=== PATIENT | male | born 1945 | race African-American/Black ===

== ENCOUNTER → 2017-04-28 | Outpatient (CLI) | payer OTHER ==
[~2017-04-28] MED LIST: ARGININE MISCELL; ASPIR 8181 MG PO; AUGMENTIN 875-1 EACH PO; CALCIUM ACETAT667 MG PO; CARDIZEM CD120 MG PO; CARVEDILOL12.5 MG PO; COREG25 MG PO; COZAAR 50 MG TA50 M1 PO; COZAAR 50 MG TA50 M2 PO; ENOXAPARIN30 MG/0.1 SUBQ; GENTAMICIN 0.1%15 G2 TOP; HEPARIN SO5000 UNIT/ SUBQ; HYDROCODON-ACE1 EAC5 PO; MIRALAX17 GM PO; NEURONTIN600 MG PO; NORCO 10-325 T1 EACH PO; NORVASC10 MG PO; NOVOLOG100 UNIT/1 SUBQ; PERCOCET 7.5-31 EACH PO; PLAVIX 75 MG TA75 M1 PO; PRAVACHOL20 MG PO; TYLENOL325 MG PO; UNASYN 3 GM VIAL3 G1 IV; VANCO 750750 MG/150 IV; VANCOMYCIN125 MG/2.1 PO; VIRT-CAPS SOFTGE1 MG PO; VITAMINC500 PO; ZINC50 M1 PO
== END ==
LOC: RAD 12:37
DX: I51.7 Cardiomegaly (principal)

== ENCOUNTER → 2017-04-28 | Outpatient (CLI) | payer OTHER | LOC: HYPER 06:51 | DX: T87.81 Dehiscence of amputation stump (principal); E11.621 Type 2 diabetes mellitus with foot ulcer; I70.262 Atherosclerosis of native arteries of extremities with gangrene, left leg; L97.521 Non-pressure chronic ulcer of other part of left foot limited to breakdown of skin; E11.69 Type 2 diabetes mellitus with other specified complication; M86.672 Other chronic osteomyelitis, left ankle and foot; E11.51 Type 2 diabetes mellitus with diabetic peripheral angiopathy without gangrene; I48.92 Unspecified atrial flutter; E78.5 Hyperlipidemia, unspecified; E11.22 Type 2 diabetes mellitus with diabetic chronic kidney disease; I12.0 Hypertensive chronic kidney disease with stage 5 chronic kidney disease or end stage renal disease; N18.6 End stage renal disease; Z99.2 Dependence on renal dialysis; I25.2 Old myocardial infarction; E11.42 Type 2 diabetes mellitus with diabetic polyneuropathy; Z87.891 Personal history of nicotine dependence; Y83.5 Amputation of limb(s) as the cause of abnormal reaction of the patient, or of later complication, without mention of misadventure at the time of the procedure ==

== ENCOUNTER → 2017-04-29 | Outpatient (CLI) | payer OTHER | LOC: HYPER 07:04 | DX: T87.81 Dehiscence of amputation stump (principal); E11.621 Type 2 diabetes mellitus with foot ulcer; L97.521 Non-pressure chronic ulcer of other part of left foot limited to breakdown of skin; E11.69 Type 2 diabetes mellitus with other specified complication; M86.672 Other chronic osteomyelitis, left ankle and foot; E11.42 Type 2 diabetes mellitus with diabetic polyneuropathy; E11.52 Type 2 diabetes mellitus with diabetic peripheral angiopathy with gangrene; I96 Gangrene, not elsewhere classified; E11.22 Type 2 diabetes mellitus with diabetic chronic kidney disease; I12.0 Hypertensive chronic kidney disease with stage 5 chronic kidney disease or end stage renal disease; N18.6 End stage renal disease; I25.10 Atherosclerotic heart disease of native coronary artery without angina pectoris; I48.92 Unspecified atrial flutter; I25.2 Old myocardial infarction; K21.9 Gastro-esophageal reflux disease without esophagitis; F32.9 Major depressive disorder, single episode, unspecified; Z99.2 Dependence on renal dialysis; Z89.022 Acquired absence of left finger(s); Z87.891 Personal history of nicotine dependence; Y83.5 Amputation of limb(s) as the cause of abnormal reaction of the patient, or of later complication, without mention of misadventure at the time of the procedure ==

== ENCOUNTER → 2017-04-30 | Outpatient (CLI) | payer OTHER | LOC: HYPER 06:47 | DX: T86.828 Other complications of skin graft (allograft) (autograft) (principal); T87.89 Other complications of amputation stump; E11.69 Type 2 diabetes mellitus with other specified complication; M86.672 Other chronic osteomyelitis, left ankle and foot; E11.22 Type 2 diabetes mellitus with diabetic chronic kidney disease; I12.0 Hypertensive chronic kidney disease with stage 5 chronic kidney disease or end stage renal disease; N18.6 End stage renal disease; Z99.2 Dependence on renal dialysis; E11.52 Type 2 diabetes mellitus with diabetic peripheral angiopathy with gangrene; I48.92 Unspecified atrial flutter; F32.9 Major depressive disorder, single episode, unspecified; I25.2 Old myocardial infarction; E11.42 Type 2 diabetes mellitus with diabetic polyneuropathy; Z87.891 Personal history of nicotine dependence; Y83.5 Amputation of limb(s) as the cause of abnormal reaction of the patient, or of later complication, without mention of misadventure at the time of the procedure ==

== ENCOUNTER → 2017-05-01 | Outpatient (CLI) | payer OTHER | LOC: HYPER 07:57 | DX: T87.89 Other complications of amputation stump (principal); T86.828 Other complications of skin graft (allograft) (autograft); E11.69 Type 2 diabetes mellitus with other specified complication; M86.672 Other chronic osteomyelitis, left ankle and foot; E11.52 Type 2 diabetes mellitus with diabetic peripheral angiopathy with gangrene; E11.22 Type 2 diabetes mellitus with diabetic chronic kidney disease; I12.0 Hypertensive chronic kidney disease with stage 5 chronic kidney disease or end stage renal disease; N18.6 End stage renal disease; Z99.2 Dependence on renal dialysis; I48.92 Unspecified atrial flutter; I25.2 Old myocardial infarction; Z87.891 Personal history of nicotine dependence; Y83.5 Amputation of limb(s) as the cause of abnormal reaction of the patient, or of later complication, without mention of misadventure at the time of the procedure ==

== ENCOUNTER → 2017-05-04 | Outpatient (CLI) | payer OTHER | LOC: HYPER 06:49 | DX: T87.81 Dehiscence of amputation stump (principal); E11.69 Type 2 diabetes mellitus with other specified complication; M86.672 Other chronic osteomyelitis, left ankle and foot; I48.92 Unspecified atrial flutter; E11.22 Type 2 diabetes mellitus with diabetic chronic kidney disease; I12.0 Hypertensive chronic kidney disease with stage 5 chronic kidney disease or end stage renal disease; N18.6 End stage renal disease; I25.10 Atherosclerotic heart disease of native coronary artery without angina pectoris; K21.9 Gastro-esophageal reflux disease without esophagitis; I96 Gangrene, not elsewhere classified; E11.52 Type 2 diabetes mellitus with diabetic peripheral angiopathy with gangrene; I25.2 Old myocardial infarction; E11.42 Type 2 diabetes mellitus with diabetic polyneuropathy; F32.9 Major depressive disorder, single episode, unspecified; Z99.2 Dependence on renal dialysis; Z87.891 Personal history of nicotine dependence; Z89.022 Acquired absence of left finger(s); Y83.5 Amputation of limb(s) as the cause of abnormal reaction of the patient, or of later complication, without mention of misadventure at the time of the procedure ==

== ENCOUNTER → 2017-05-05 | Outpatient (CLI) | payer OTHER | LOC: HYPER 06:45 | DX: T87.81 Dehiscence of amputation stump (principal); E11.42 Type 2 diabetes mellitus with diabetic polyneuropathy; E11.69 Type 2 diabetes mellitus with other specified complication; M86.672 Other chronic osteomyelitis, left ankle and foot; E11.22 Type 2 diabetes mellitus with diabetic chronic kidney disease; I12.0 Hypertensive chronic kidney disease with stage 5 chronic kidney disease or end stage renal disease; N18.6 End stage renal disease; E11.52 Type 2 diabetes mellitus with diabetic peripheral angiopathy with gangrene; I96 Gangrene, not elsewhere classified; I25.10 Atherosclerotic heart disease of native coronary artery without angina pectoris; I48.92 Unspecified atrial flutter; I25.2 Old myocardial infarction; K21.9 Gastro-esophageal reflux disease without esophagitis; F32.9 Major depressive disorder, single episode, unspecified; Z99.2 Dependence on renal dialysis; Z87.891 Personal history of nicotine dependence; Z89.022 Acquired absence of left finger(s); Y83.5 Amputation of limb(s) as the cause of abnormal reaction of the patient, or of later complication, without mention of misadventure at the time of the procedure ==

== ENCOUNTER → 2017-05-06 | Outpatient (CLI) | payer OTHER | LOC: HYPER 07:00 | DX: T87.89 Other complications of amputation stump (principal); E11.69 Type 2 diabetes mellitus with other specified complication; M86.672 Other chronic osteomyelitis, left ankle and foot; E11.51 Type 2 diabetes mellitus with diabetic peripheral angiopathy without gangrene; I48.91 Unspecified atrial fibrillation; E11.22 Type 2 diabetes mellitus with diabetic chronic kidney disease; I12.0 Hypertensive chronic kidney disease with stage 5 chronic kidney disease or end stage renal disease; N18.6 End stage renal disease; Z99.2 Dependence on renal dialysis; I25.10 Atherosclerotic heart disease of native coronary artery without angina pectoris; K21.9 Gastro-esophageal reflux disease without esophagitis; E11.52 Type 2 diabetes mellitus with diabetic peripheral angiopathy with gangrene; I25.2 Old myocardial infarction; Z87.891 Personal history of nicotine dependence; Y83.5 Amputation of limb(s) as the cause of abnormal reaction of the patient, or of later complication, without mention of misadventure at the time of the procedure ==

== ENCOUNTER → 2017-05-08 | Outpatient (CLI) | payer OTHER | LOC: HYPER 08:13 | DX: T87.81 Dehiscence of amputation stump (principal); E11.69 Type 2 diabetes mellitus with other specified complication; M86.672 Other chronic osteomyelitis, left ankle and foot; E11.52 Type 2 diabetes mellitus with diabetic peripheral angiopathy with gangrene; I96 Gangrene, not elsewhere classified; E11.42 Type 2 diabetes mellitus with diabetic polyneuropathy; E11.22 Type 2 diabetes mellitus with diabetic chronic kidney disease; I12.0 Hypertensive chronic kidney disease with stage 5 chronic kidney disease or end stage renal disease; N18.6 End stage renal disease; I25.10 Atherosclerotic heart disease of native coronary artery without angina pectoris; I25.2 Old myocardial infarction; I48.92 Unspecified atrial flutter; K21.9 Gastro-esophageal reflux disease without esophagitis; F32.9 Major depressive disorder, single episode, unspecified; Z99.2 Dependence on renal dialysis; Z87.891 Personal history of nicotine dependence; Z89.422 Acquired absence of other left toe(s); Z89.022 Acquired absence of left finger(s); Y83.5 Amputation of limb(s) as the cause of abnormal reaction of the patient, or of later complication, without mention of misadventure at the time of the procedure ==

== ENCOUNTER → 2017-05-12 | Outpatient (CLI) | payer OTHER | LOC: HYPER 07:00 | DX: T87.81 Dehiscence of amputation stump (principal); E11.69 Type 2 diabetes mellitus with other specified complication; M86.672 Other chronic osteomyelitis, left ankle and foot; E11.42 Type 2 diabetes mellitus with diabetic polyneuropathy; E11.22 Type 2 diabetes mellitus with diabetic chronic kidney disease; I12.0 Hypertensive chronic kidney disease with stage 5 chronic kidney disease or end stage renal disease; N18.6 End stage renal disease; E11.52 Type 2 diabetes mellitus with diabetic peripheral angiopathy with gangrene; I96 Gangrene, not elsewhere classified; K21.9 Gastro-esophageal reflux disease without esophagitis; I25.10 Atherosclerotic heart disease of native coronary artery without angina pectoris; I48.92 Unspecified atrial flutter; I25.2 Old myocardial infarction; F32.9 Major depressive disorder, single episode, unspecified; Z87.891 Personal history of nicotine dependence; Z89.022 Acquired absence of left finger(s); Z99.2 Dependence on renal dialysis; Y83.5 Amputation of limb(s) as the cause of abnormal reaction of the patient, or of later complication, without mention of misadventure at the time of the procedure ==

== ENCOUNTER → 2017-05-13 | Outpatient (CLI) | payer OTHER | LOC: HYPER 05-06 06:45 | DX: T87.81 Dehiscence of amputation stump (principal); E11.69 Type 2 diabetes mellitus with other specified complication; M86.672 Other chronic osteomyelitis, left ankle and foot; I48.92 Unspecified atrial flutter; E11.22 Type 2 diabetes mellitus with diabetic chronic kidney disease; I12.0 Hypertensive chronic kidney disease with stage 5 chronic kidney disease or end stage renal disease; N18.6 End stage renal disease; E11.52 Type 2 diabetes mellitus with diabetic peripheral angiopathy with gangrene; I96 Gangrene, not elsewhere classified; K21.9 Gastro-esophageal reflux disease without esophagitis; I25.2 Old myocardial infarction; E11.42 Type 2 diabetes mellitus with diabetic polyneuropathy; F32.9 Major depressive disorder, single episode, unspecified; Z87.891 Personal history of nicotine dependence; Z99.2 Dependence on renal dialysis; Z89.022 Acquired absence of left finger(s); Y83.5 Amputation of limb(s) as the cause of abnormal reaction of the patient, or of later complication, without mention of misadventure at the time of the procedure ==

== ENCOUNTER → 2017-05-14 | Outpatient (CLI) | payer OTHER | LOC: HYPER 05-07 08:25 | DX: T87.81 Dehiscence of amputation stump (principal); E11.69 Type 2 diabetes mellitus with other specified complication; M86.672 Other chronic osteomyelitis, left ankle and foot; E11.52 Type 2 diabetes mellitus with diabetic peripheral angiopathy with gangrene; I96 Gangrene, not elsewhere classified; E11.22 Type 2 diabetes mellitus with diabetic chronic kidney disease; I12.0 Hypertensive chronic kidney disease with stage 5 chronic kidney disease or end stage renal disease; N18.6 End stage renal disease; I48.92 Unspecified atrial flutter; I25.10 Atherosclerotic heart disease of native coronary artery without angina pectoris; K21.9 Gastro-esophageal reflux disease without esophagitis; I25.2 Old myocardial infarction; E11.42 Type 2 diabetes mellitus with diabetic polyneuropathy; F32.9 Major depressive disorder, single episode, unspecified; Z87.891 Personal history of nicotine dependence; Z99.2 Dependence on renal dialysis; Z89.022 Acquired absence of left finger(s); Y83.5 Amputation of limb(s) as the cause of abnormal reaction of the patient, or of later complication, without mention of misadventure at the time of the procedure ==

== ENCOUNTER → 2017-05-15 | Outpatient (CLI) | payer OTHER | LOC: HYPER 05-11 06:52 | DX: T86.828 Other complications of skin graft (allograft) (autograft) (principal); T87.89 Other complications of amputation stump; E11.69 Type 2 diabetes mellitus with other specified complication; M86.672 Other chronic osteomyelitis, left ankle and foot; I48.92 Unspecified atrial flutter; E11.22 Type 2 diabetes mellitus with diabetic chronic kidney disease; I12.0 Hypertensive chronic kidney disease with stage 5 chronic kidney disease or end stage renal disease; N18.6 End stage renal disease; Z99.2 Dependence on renal dialysis; I25.10 Atherosclerotic heart disease of native coronary artery without angina pectoris; F32.9 Major depressive disorder, single episode, unspecified; K21.9 Gastro-esophageal reflux disease without esophagitis; E11.52 Type 2 diabetes mellitus with diabetic peripheral angiopathy with gangrene; I25.2 Old myocardial infarction; E11.42 Type 2 diabetes mellitus with diabetic polyneuropathy; Z87.891 Personal history of nicotine dependence; Y83.2 Surgical operation with anastomosis, bypass or graft as the cause of abnormal reaction of the patient, or of later complication, without mention of misadventure at the time of the procedure ==

== ENCOUNTER → 2017-05-18 | Outpatient (CLI) | payer OTHER | LOC: HYPER 07:08 | DX: T86.828 Other complications of skin graft (allograft) (autograft) (principal); E11.69 Type 2 diabetes mellitus with other specified complication; M86.672 Other chronic osteomyelitis, left ankle and foot; E11.51 Type 2 diabetes mellitus with diabetic peripheral angiopathy without gangrene; I48.92 Unspecified atrial flutter; E11.22 Type 2 diabetes mellitus with diabetic chronic kidney disease; I12.0 Hypertensive chronic kidney disease with stage 5 chronic kidney disease or end stage renal disease; N18.6 End stage renal disease; Z99.2 Dependence on renal dialysis; I25.10 Atherosclerotic heart disease of native coronary artery without angina pectoris; K21.9 Gastro-esophageal reflux disease without esophagitis; I25.2 Old myocardial infarction; E11.42 Type 2 diabetes mellitus with diabetic polyneuropathy; Z87.891 Personal history of nicotine dependence; Y83.2 Surgical operation with anastomosis, bypass or graft as the cause of abnormal reaction of the patient, or of later complication, without mention of misadventure at the time of the procedure ==

== ENCOUNTER → 2017-05-19 | Outpatient (CLI) | payer OTHER | LOC: HYPER 07:07 | DX: T87.81 Dehiscence of amputation stump (principal); E11.69 Type 2 diabetes mellitus with other specified complication; M86.672 Other chronic osteomyelitis, left ankle and foot; E11.42 Type 2 diabetes mellitus with diabetic polyneuropathy; E11.22 Type 2 diabetes mellitus with diabetic chronic kidney disease; I12.0 Hypertensive chronic kidney disease with stage 5 chronic kidney disease or end stage renal disease; N18.6 End stage renal disease; E11.52 Type 2 diabetes mellitus with diabetic peripheral angiopathy with gangrene; I96 Gangrene, not elsewhere classified; I48.92 Unspecified atrial flutter; I25.2 Old myocardial infarction; I25.10 Atherosclerotic heart disease of native coronary artery without angina pectoris; K21.9 Gastro-esophageal reflux disease without esophagitis; F32.9 Major depressive disorder, single episode, unspecified; Z99.2 Dependence on renal dialysis; Z87.891 Personal history of nicotine dependence; Z89.022 Acquired absence of left finger(s); Z89.422 Acquired absence of other left toe(s); Y83.5 Amputation of limb(s) as the cause of abnormal reaction of the patient, or of later complication, without mention of misadventure at the time of the procedure ==

== ENCOUNTER → 2017-05-20 | Outpatient (CLI) | payer OTHER | LOC: HYPER 06:55 | DX: T86.828 Other complications of skin graft (allograft) (autograft) (principal); T87.89 Other complications of amputation stump; M86.672 Other chronic osteomyelitis, left ankle and foot; I73.9 Peripheral vascular disease, unspecified; I10 Essential (primary) hypertension; I48.92 Unspecified atrial flutter; E11.22 Type 2 diabetes mellitus with diabetic chronic kidney disease; I12.0 Hypertensive chronic kidney disease with stage 5 chronic kidney disease or end stage renal disease; N18.6 End stage renal disease; Z99.2 Dependence on renal dialysis; E11.52 Type 2 diabetes mellitus with diabetic peripheral angiopathy with gangrene; I25.2 Old myocardial infarction; K21.9 Gastro-esophageal reflux disease without esophagitis; Z87.891 Personal history of nicotine dependence; Z89.432 Acquired absence of left foot; Y83.2 Surgical operation with anastomosis, bypass or graft as the cause of abnormal reaction of the patient, or of later complication, without mention of misadventure at the time of the procedure ==

== ENCOUNTER → 2017-05-21 | Outpatient (CLI) | payer OTHER | LOC: HYPER 06:46 | DX: T87.81 Dehiscence of amputation stump (principal); E11.40 Type 2 diabetes mellitus with diabetic neuropathy, unspecified; E11.621 Type 2 diabetes mellitus with foot ulcer; L97.521 Non-pressure chronic ulcer of other part of left foot limited to breakdown of skin; E11.52 Type 2 diabetes mellitus with diabetic peripheral angiopathy with gangrene; I96 Gangrene, not elsewhere classified; E11.69 Type 2 diabetes mellitus with other specified complication; M86.672 Other chronic osteomyelitis, left ankle and foot; I12.0 Hypertensive chronic kidney disease with stage 5 chronic kidney disease or end stage renal disease; I48.92 Unspecified atrial flutter; E11.22 Type 2 diabetes mellitus with diabetic chronic kidney disease; N18.6 End stage renal disease; I25.2 Old myocardial infarction; E78.4 Other hyperlipidemia; I25.10 Atherosclerotic heart disease of native coronary artery without angina pectoris; K21.9 Gastro-esophageal reflux disease without esophagitis; G61.82 Multifocal motor neuropathy; F17.210 Nicotine dependence, cigarettes, uncomplicated; F32.9 Major depressive disorder, single episode, unspecified; Z99.2 Dependence on renal dialysis; Z89.432 Acquired absence of left foot; Y83.5 Amputation of limb(s) as the cause of abnormal reaction of the patient, or of later complication, without mention of misadventure at the time of the procedure ==

== ENCOUNTER → 2017-05-21 | Outpatient (CLI) | payer OTHER | LOC: HYPER 06:48 | DX: T81.31XD Disruption of external operation (surgical) wound, not elsewhere classified, subsequent encounter (principal); E11.69 Type 2 diabetes mellitus with other specified complication; M86.672 Other chronic osteomyelitis, left ankle and foot; E11.51 Type 2 diabetes mellitus with diabetic peripheral angiopathy without gangrene; I48.92 Unspecified atrial flutter; M62.81 Muscle weakness (generalized); R26.81 Unsteadiness on feet; E11.22 Type 2 diabetes mellitus with diabetic chronic kidney disease; I12.0 Hypertensive chronic kidney disease with stage 5 chronic kidney disease or end stage renal disease; N18.6 End stage renal disease; Z99.2 Dependence on renal dialysis; I25.10 Atherosclerotic heart disease of native coronary artery without angina pectoris; F32.9 Major depressive disorder, single episode, unspecified; K21.9 Gastro-esophageal reflux disease without esophagitis; E11.52 Type 2 diabetes mellitus with diabetic peripheral angiopathy with gangrene; I25.2 Old myocardial infarction; E11.42 Type 2 diabetes mellitus with diabetic polyneuropathy; Z89.432 Acquired absence of left foot; Z87.891 Personal history of nicotine dependence; Y83.8 Other surgical procedures as the cause of abnormal reaction of the patient, or of later complication, without mention of misadventure at the time of the procedure ==

== ENCOUNTER → 2017-05-22 | Outpatient (CLI) | payer OTHER | LOC: HYPER 08:00 | DX: T86.828 Other complications of skin graft (allograft) (autograft) (principal); E11.69 Type 2 diabetes mellitus with other specified complication; M86.672 Other chronic osteomyelitis, left ankle and foot; M62.81 Muscle weakness (generalized); F17.210 Nicotine dependence, cigarettes, uncomplicated; R26.81 Unsteadiness on feet; E11.22 Type 2 diabetes mellitus with diabetic chronic kidney disease; I12.0 Hypertensive chronic kidney disease with stage 5 chronic kidney disease or end stage renal disease; N18.6 End stage renal disease; Z99.2 Dependence on renal dialysis; I25.10 Atherosclerotic heart disease of native coronary artery without angina pectoris; F32.9 Major depressive disorder, single episode, unspecified; K21.9 Gastro-esophageal reflux disease without esophagitis; E11.52 Type 2 diabetes mellitus with diabetic peripheral angiopathy with gangrene; I25.2 Old myocardial infarction; E11.42 Type 2 diabetes mellitus with diabetic polyneuropathy; Z87.891 Personal history of nicotine dependence; Y83.2 Surgical operation with anastomosis, bypass or graft as the cause of abnormal reaction of the patient, or of later complication, without mention of misadventure at the time of the procedure ==

== ENCOUNTER → 2017-05-25 | Outpatient (CLI) | payer OTHER | LOC: HYPER 06:44 | DX: T86.828 Other complications of skin graft (allograft) (autograft) (principal); E11.69 Type 2 diabetes mellitus with other specified complication; M86.672 Other chronic osteomyelitis, left ankle and foot; E11.52 Type 2 diabetes mellitus with diabetic peripheral angiopathy with gangrene; I48.92 Unspecified atrial flutter; M62.81 Muscle weakness (generalized); R26.81 Unsteadiness on feet; E11.22 Type 2 diabetes mellitus with diabetic chronic kidney disease; I12.0 Hypertensive chronic kidney disease with stage 5 chronic kidney disease or end stage renal disease; N18.6 End stage renal disease; Z99.2 Dependence on renal dialysis; I25.2 Old myocardial infarction; E11.42 Type 2 diabetes mellitus with diabetic polyneuropathy; Z87.891 Personal history of nicotine dependence; Y83.2 Surgical operation with anastomosis, bypass or graft as the cause of abnormal reaction of the patient, or of later complication, without mention of misadventure at the time of the procedure ==

== ENCOUNTER → 2017-05-26 | Outpatient (CLI) | payer OTHER | LOC: HYPER 06:46 | DX: T86.821 Skin graft (allograft) (autograft) failure (principal); E11.69 Type 2 diabetes mellitus with other specified complication; M86.672 Other chronic osteomyelitis, left ankle and foot; I10 Essential (primary) hypertension; I48.92 Unspecified atrial flutter; M62.81 Muscle weakness (generalized); F17.210 Nicotine dependence, cigarettes, uncomplicated; R26.81 Unsteadiness on feet; I70.249 Atherosclerosis of native arteries of left leg with ulceration of unspecified site; E11.22 Type 2 diabetes mellitus with diabetic chronic kidney disease; I12.0 Hypertensive chronic kidney disease with stage 5 chronic kidney disease or end stage renal disease; N18.6 End stage renal disease; Z99.2 Dependence on renal dialysis; I25.10 Atherosclerotic heart disease of native coronary artery without angina pectoris; K21.9 Gastro-esophageal reflux disease without esophagitis; E11.52 Type 2 diabetes mellitus with diabetic peripheral angiopathy with gangrene; E11.42 Type 2 diabetes mellitus with diabetic polyneuropathy; Z87.891 Personal history of nicotine dependence; Z89.432 Acquired absence of left foot; Y83.2 Surgical operation with anastomosis, bypass or graft as the cause of abnormal reaction of the patient, or of later complication, without mention of misadventure at the time of the procedure ==

== ENCOUNTER → 2017-05-28 | Outpatient (CLI) | payer OTHER | LOC: HYPER 06:54 | DX: T81.31XD Disruption of external operation (surgical) wound, not elsewhere classified, subsequent encounter (principal); E11.22 Type 2 diabetes mellitus with diabetic chronic kidney disease; I12.0 Hypertensive chronic kidney disease with stage 5 chronic kidney disease or end stage renal disease; N18.6 End stage renal disease; E11.69 Type 2 diabetes mellitus with other specified complication; M86.672 Other chronic osteomyelitis, left ankle and foot; E11.52 Type 2 diabetes mellitus with diabetic peripheral angiopathy with gangrene; I96 Gangrene, not elsewhere classified; E11.42 Type 2 diabetes mellitus with diabetic polyneuropathy; I48.91 Unspecified atrial fibrillation; I25.10 Atherosclerotic heart disease of native coronary artery without angina pectoris; K21.9 Gastro-esophageal reflux disease without esophagitis; I25.2 Old myocardial infarction; I48.92 Unspecified atrial flutter; F32.9 Major depressive disorder, single episode, unspecified; F17.210 Nicotine dependence, cigarettes, uncomplicated; Z89.432 Acquired absence of left foot; Z99.2 Dependence on renal dialysis; Z89.422 Acquired absence of other left toe(s); Z89.022 Acquired absence of left finger(s); Y83.8 Other surgical procedures as the cause of abnormal reaction of the patient, or of later complication, without mention of misadventure at the time of the procedure ==

== ENCOUNTER → 2017-05-28 | Outpatient (CLI) | payer OTHER | LOC: HYPER 05-27 14:24 | DX: T87.89 Other complications of amputation stump (principal); T86.828 Other complications of skin graft (allograft) (autograft); E11.69 Type 2 diabetes mellitus with other specified complication; M86.672 Other chronic osteomyelitis, left ankle and foot; E11.51 Type 2 diabetes mellitus with diabetic peripheral angiopathy without gangrene; I48.92 Unspecified atrial flutter; E78.4 Other hyperlipidemia; M62.81 Muscle weakness (generalized); F17.210 Nicotine dependence, cigarettes, uncomplicated; R26.81 Unsteadiness on feet; E11.22 Type 2 diabetes mellitus with diabetic chronic kidney disease; I12.0 Hypertensive chronic kidney disease with stage 5 chronic kidney disease or end stage renal disease; N18.6 End stage renal disease; Z99.2 Dependence on renal dialysis; I25.10 Atherosclerotic heart disease of native coronary artery without angina pectoris; F32.9 Major depressive disorder, single episode, unspecified; K21.9 Gastro-esophageal reflux disease without esophagitis; Z87.891 Personal history of nicotine dependence; Y83.5 Amputation of limb(s) as the cause of abnormal reaction of the patient, or of later complication, without mention of misadventure at the time of the procedure ==

== ENCOUNTER → 2017-06-04 | Outpatient (CLI) | payer OTHER | LOC: HYPER 07:01 | DX: T86.828 Other complications of skin graft (allograft) (autograft) (principal); E11.622 Type 2 diabetes mellitus with other skin ulcer; I70.248 Atherosclerosis of native arteries of left leg with ulceration of other part of lower leg; L97.821 Non-pressure chronic ulcer of other part of left lower leg limited to breakdown of skin; E11.69 Type 2 diabetes mellitus with other specified complication; M86.672 Other chronic osteomyelitis, left ankle and foot; I48.92 Unspecified atrial flutter; E11.22 Type 2 diabetes mellitus with diabetic chronic kidney disease; I13.11 Hypertensive heart and chronic kidney disease without heart failure, with stage 5 chronic kidney disease, or end stage renal disease; N18.6 End stage renal disease; Z99.2 Dependence on renal dialysis; M62.81 Muscle weakness (generalized); F17.210 Nicotine dependence, cigarettes, uncomplicated; I25.10 Atherosclerotic heart disease of native coronary artery without angina pectoris; F32.9 Major depressive disorder, single episode, unspecified; I25.2 Old myocardial infarction; E11.42 Type 2 diabetes mellitus with diabetic polyneuropathy; E11.52 Type 2 diabetes mellitus with diabetic peripheral angiopathy with gangrene; Z87.891 Personal history of nicotine dependence; Z89.432 Acquired absence of left foot; Y83.2 Surgical operation with anastomosis, bypass or graft as the cause of abnormal reaction of the patient, or of later complication, without mention of misadventure at the time of the procedure ==

== ENCOUNTER → 2017-06-08 | Outpatient (CLI) | payer OTHER | LOC: HYPER 06:57 | DX: T86.828 Other complications of skin graft (allograft) (autograft) (principal); E11.69 Type 2 diabetes mellitus with other specified complication; M86.672 Other chronic osteomyelitis, left ankle and foot; I48.92 Unspecified atrial flutter; M62.81 Muscle weakness (generalized); F17.210 Nicotine dependence, cigarettes, uncomplicated; R26.81 Unsteadiness on feet; I25.10 Atherosclerotic heart disease of native coronary artery without angina pectoris; E11.22 Type 2 diabetes mellitus with diabetic chronic kidney disease; I12.0 Hypertensive chronic kidney disease with stage 5 chronic kidney disease or end stage renal disease; N18.6 End stage renal disease; Z99.2 Dependence on renal dialysis; E11.52 Type 2 diabetes mellitus with diabetic peripheral angiopathy with gangrene; E11.42 Type 2 diabetes mellitus with diabetic polyneuropathy; F32.9 Major depressive disorder, single episode, unspecified; Z87.891 Personal history of nicotine dependence; Z89.422 Acquired absence of other left toe(s); Y83.2 Surgical operation with anastomosis, bypass or graft as the cause of abnormal reaction of the patient, or of later complication, without mention of misadventure at the time of the procedure ==

== ENCOUNTER → 2017-06-09 | Outpatient (CLI) | payer OTHER | LOC: HYPER 07:00 | DX: T81.31XD Disruption of external operation (surgical) wound, not elsewhere classified, subsequent encounter (principal); E11.52 Type 2 diabetes mellitus with diabetic peripheral angiopathy with gangrene; I96 Gangrene, not elsewhere classified; E11.69 Type 2 diabetes mellitus with other specified complication; M86.672 Other chronic osteomyelitis, left ankle and foot; E11.22 Type 2 diabetes mellitus with diabetic chronic kidney disease; I12.0 Hypertensive chronic kidney disease with stage 5 chronic kidney disease or end stage renal disease; N18.6 End stage renal disease; I48.92 Unspecified atrial flutter; I25.2 Old myocardial infarction; I25.10 Atherosclerotic heart disease of native coronary artery without angina pectoris; M62.81 Muscle weakness (generalized); K21.9 Gastro-esophageal reflux disease without esophagitis; F17.210 Nicotine dependence, cigarettes, uncomplicated; F32.9 Major depressive disorder, single episode, unspecified; Z89.432 Acquired absence of left foot; Z99.2 Dependence on renal dialysis; Z89.422 Acquired absence of other left toe(s); Y83.8 Other surgical procedures as the cause of abnormal reaction of the patient, or of later complication, without mention of misadventure at the time of the procedure ==

== ENCOUNTER → 2017-06-10 | Outpatient (CLI) | payer OTHER | LOC: HYPER 07:02 | DX: T81.31XD Disruption of external operation (surgical) wound, not elsewhere classified, subsequent encounter (principal); E11.69 Type 2 diabetes mellitus with other specified complication; M86.672 Other chronic osteomyelitis, left ankle and foot; E11.22 Type 2 diabetes mellitus with diabetic chronic kidney disease; I12.9 Hypertensive chronic kidney disease with stage 1 through stage 4 chronic kidney disease, or unspecified chronic kidney disease; N18.6 End stage renal disease; E11.52 Type 2 diabetes mellitus with diabetic peripheral angiopathy with gangrene; I96 Gangrene, not elsewhere classified; E11.42 Type 2 diabetes mellitus with diabetic polyneuropathy; I10 Essential (primary) hypertension; I48.92 Unspecified atrial flutter; I25.10 Atherosclerotic heart disease of native coronary artery without angina pectoris; I25.2 Old myocardial infarction; I48.91 Unspecified atrial fibrillation; K21.9 Gastro-esophageal reflux disease without esophagitis; F17.210 Nicotine dependence, cigarettes, uncomplicated; F32.9 Major depressive disorder, single episode, unspecified; Z99.2 Dependence on renal dialysis; Z89.432 Acquired absence of left foot; Z89.422 Acquired absence of other left toe(s); Z89.022 Acquired absence of left finger(s); Y83.8 Other surgical procedures as the cause of abnormal reaction of the patient, or of later complication, without mention of misadventure at the time of the procedure ==

== ENCOUNTER → 2017-06-11 | Outpatient (CLI) | payer OTHER | LOC: HYPER 07:17 | DX: T86.828 Other complications of skin graft (allograft) (autograft) (principal); E11.69 Type 2 diabetes mellitus with other specified complication; M86.672 Other chronic osteomyelitis, left ankle and foot; I48.92 Unspecified atrial flutter; M62.81 Muscle weakness (generalized); F17.210 Nicotine dependence, cigarettes, uncomplicated; R26.81 Unsteadiness on feet; I25.10 Atherosclerotic heart disease of native coronary artery without angina pectoris; E11.22 Type 2 diabetes mellitus with diabetic chronic kidney disease; I12.0 Hypertensive chronic kidney disease with stage 5 chronic kidney disease or end stage renal disease; N18.6 End stage renal disease; Z99.2 Dependence on renal dialysis; E11.52 Type 2 diabetes mellitus with diabetic peripheral angiopathy with gangrene; I25.2 Old myocardial infarction; Z87.891 Personal history of nicotine dependence; Z89.432 Acquired absence of left foot; Y83.2 Surgical operation with anastomosis, bypass or graft as the cause of abnormal reaction of the patient, or of later complication, without mention of misadventure at the time of the procedure ==

== ENCOUNTER → 2017-06-15 | Outpatient (CLI) | payer OTHER | LOC: HYPER 06:53 | DX: T86.828 Other complications of skin graft (allograft) (autograft) (principal); E11.69 Type 2 diabetes mellitus with other specified complication; M86.672 Other chronic osteomyelitis, left ankle and foot; I48.92 Unspecified atrial flutter; M62.81 Muscle weakness (generalized); F17.210 Nicotine dependence, cigarettes, uncomplicated; E26.81 Bartter's syndrome; E11.22 Type 2 diabetes mellitus with diabetic chronic kidney disease; I12.0 Hypertensive chronic kidney disease with stage 5 chronic kidney disease or end stage renal disease; N18.6 End stage renal disease; Z99.2 Dependence on renal dialysis; K21.9 Gastro-esophageal reflux disease without esophagitis; E11.52 Type 2 diabetes mellitus with diabetic peripheral angiopathy with gangrene; I25.2 Old myocardial infarction; Z87.891 Personal history of nicotine dependence; Z89.432 Acquired absence of left foot; Y83.2 Surgical operation with anastomosis, bypass or graft as the cause of abnormal reaction of the patient, or of later complication, without mention of misadventure at the time of the procedure ==

== ENCOUNTER → 2017-06-16 | Outpatient (CLI) | payer OTHER | LOC: HYPER 06:39 | DX: T87.89 Other complications of amputation stump (principal); T86.828 Other complications of skin graft (allograft) (autograft); E11.69 Type 2 diabetes mellitus with other specified complication; M86.672 Other chronic osteomyelitis, left ankle and foot; E11.52 Type 2 diabetes mellitus with diabetic peripheral angiopathy with gangrene; I48.92 Unspecified atrial flutter; M62.81 Muscle weakness (generalized); F17.210 Nicotine dependence, cigarettes, uncomplicated; R26.81 Unsteadiness on feet; E11.22 Type 2 diabetes mellitus with diabetic chronic kidney disease; I12.0 Hypertensive chronic kidney disease with stage 5 chronic kidney disease or end stage renal disease; N18.6 End stage renal disease; Z99.2 Dependence on renal dialysis; I25.2 Old myocardial infarction; F32.9 Major depressive disorder, single episode, unspecified; Z87.891 Personal history of nicotine dependence; Y83.5 Amputation of limb(s) as the cause of abnormal reaction of the patient, or of later complication, without mention of misadventure at the time of the procedure ==

== ENCOUNTER → 2017-06-17 | Outpatient (CLI) | payer OTHER | LOC: HYPER 06:43 | DX: T87.81 Dehiscence of amputation stump (principal); E11.69 Type 2 diabetes mellitus with other specified complication; M86.672 Other chronic osteomyelitis, left ankle and foot; E11.52 Type 2 diabetes mellitus with diabetic peripheral angiopathy with gangrene; I96 Gangrene, not elsewhere classified; E11.22 Type 2 diabetes mellitus with diabetic chronic kidney disease; I13.11 Hypertensive heart and chronic kidney disease without heart failure, with stage 5 chronic kidney disease, or end stage renal disease; N18.6 End stage renal disease; I48.92 Unspecified atrial flutter; I25.2 Old myocardial infarction; I25.10 Atherosclerotic heart disease of native coronary artery without angina pectoris; K21.9 Gastro-esophageal reflux disease without esophagitis; M62.81 Muscle weakness (generalized); F17.210 Nicotine dependence, cigarettes, uncomplicated; F32.9 Major depressive disorder, single episode, unspecified; Z99.2 Dependence on renal dialysis; Y83.5 Amputation of limb(s) as the cause of abnormal reaction of the patient, or of later complication, without mention of misadventure at the time of the procedure ==

== ENCOUNTER → 2017-06-18 | Outpatient (CLI) | payer OTHER | LOC: HYPER 07:01 | DX: T86.828 Other complications of skin graft (allograft) (autograft) (principal); E11.621 Type 2 diabetes mellitus with foot ulcer; L97.521 Non-pressure chronic ulcer of other part of left foot limited to breakdown of skin; E11.69 Type 2 diabetes mellitus with other specified complication; M86.672 Other chronic osteomyelitis, left ankle and foot; E11.51 Type 2 diabetes mellitus with diabetic peripheral angiopathy without gangrene; I48.92 Unspecified atrial flutter; M62.81 Muscle weakness (generalized); F17.210 Nicotine dependence, cigarettes, uncomplicated; R26.81 Unsteadiness on feet; E11.22 Type 2 diabetes mellitus with diabetic chronic kidney disease; I12.0 Hypertensive chronic kidney disease with stage 5 chronic kidney disease or end stage renal disease; N18.6 End stage renal disease; Z99.2 Dependence on renal dialysis; F32.9 Major depressive disorder, single episode, unspecified; E11.52 Type 2 diabetes mellitus with diabetic peripheral angiopathy with gangrene; E11.42 Type 2 diabetes mellitus with diabetic polyneuropathy; Z87.891 Personal history of nicotine dependence; Z89.432 Acquired absence of left foot; Y83.2 Surgical operation with anastomosis, bypass or graft as the cause of abnormal reaction of the patient, or of later complication, without mention of misadventure at the time of the procedure ==

== ENCOUNTER → 2017-06-22 | Outpatient (CLI) | payer OTHER | LOC: HYPER 06:50 | DX: T86.828 Other complications of skin graft (allograft) (autograft) (principal); E11.621 Type 2 diabetes mellitus with foot ulcer; L97.521 Non-pressure chronic ulcer of other part of left foot limited to breakdown of skin; E11.69 Type 2 diabetes mellitus with other specified complication; E11.52 Type 2 diabetes mellitus with diabetic peripheral angiopathy with gangrene; M86.672 Other chronic osteomyelitis, left ankle and foot; I48.92 Unspecified atrial flutter; M62.81 Muscle weakness (generalized); F17.210 Nicotine dependence, cigarettes, uncomplicated; E26.81 Bartter's syndrome; E11.22 Type 2 diabetes mellitus with diabetic chronic kidney disease; I12.0 Hypertensive chronic kidney disease with stage 5 chronic kidney disease or end stage renal disease; N18.6 End stage renal disease; Z99.2 Dependence on renal dialysis; K21.9 Gastro-esophageal reflux disease without esophagitis; Z87.891 Personal history of nicotine dependence; Z89.432 Acquired absence of left foot; Y83.2 Surgical operation with anastomosis, bypass or graft as the cause of abnormal reaction of the patient, or of later complication, without mention of misadventure at the time of the procedure ==

== ENCOUNTER → 2017-06-23 | Outpatient (CLI) | payer OTHER | LOC: HYPER 06:48 | DX: T81.31XD Disruption of external operation (surgical) wound, not elsewhere classified, subsequent encounter (principal); E11.621 Type 2 diabetes mellitus with foot ulcer; L97.521 Non-pressure chronic ulcer of other part of left foot limited to breakdown of skin; I70.249 Atherosclerosis of native arteries of left leg with ulceration of unspecified site; E11.69 Type 2 diabetes mellitus with other specified complication; M86.672 Other chronic osteomyelitis, left ankle and foot; E11.22 Type 2 diabetes mellitus with diabetic chronic kidney disease; I12.0 Hypertensive chronic kidney disease with stage 5 chronic kidney disease or end stage renal disease; N18.6 End stage renal disease; E11.52 Type 2 diabetes mellitus with diabetic peripheral angiopathy with gangrene; I96 Gangrene, not elsewhere classified; I48.92 Unspecified atrial flutter; I25.10 Atherosclerotic heart disease of native coronary artery without angina pectoris; I25.2 Old myocardial infarction; K21.9 Gastro-esophageal reflux disease without esophagitis; M62.81 Muscle weakness (generalized); F32.9 Major depressive disorder, single episode, unspecified; F17.210 Nicotine dependence, cigarettes, uncomplicated; Z99.2 Dependence on renal dialysis; Z89.022 Acquired absence of left finger(s); Y83.8 Other surgical procedures as the cause of abnormal reaction of the patient, or of later complication, without mention of misadventure at the time of the procedure ==

== ENCOUNTER → 2017-06-25 | Outpatient (CLI) | payer OTHER | LOC: HYPER 06:49 | DX: T86.828 Other complications of skin graft (allograft) (autograft) (principal); E11.621 Type 2 diabetes mellitus with foot ulcer; L97.521 Non-pressure chronic ulcer of other part of left foot limited to breakdown of skin; E11.69 Type 2 diabetes mellitus with other specified complication; M86.672 Other chronic osteomyelitis, left ankle and foot; E11.51 Type 2 diabetes mellitus with diabetic peripheral angiopathy without gangrene; I48.92 Unspecified atrial flutter; M62.81 Muscle weakness (generalized); F17.210 Nicotine dependence, cigarettes, uncomplicated; R26.81 Unsteadiness on feet; E11.22 Type 2 diabetes mellitus with diabetic chronic kidney disease; I12.0 Hypertensive chronic kidney disease with stage 5 chronic kidney disease or end stage renal disease; N18.6 End stage renal disease; Z99.2 Dependence on renal dialysis; F32.9 Major depressive disorder, single episode, unspecified; I25.2 Old myocardial infarction; E11.42 Type 2 diabetes mellitus with diabetic polyneuropathy; Z87.891 Personal history of nicotine dependence; Z89.432 Acquired absence of left foot; Y83.2 Surgical operation with anastomosis, bypass or graft as the cause of abnormal reaction of the patient, or of later complication, without mention of misadventure at the time of the procedure ==

== ENCOUNTER → 2017-06-26 | Outpatient (CLI) | payer OTHER | LOC: HYPER 07:58 | DX: T86.828 Other complications of skin graft (allograft) (autograft) (principal); E11.621 Type 2 diabetes mellitus with foot ulcer; L97.521 Non-pressure chronic ulcer of other part of left foot limited to breakdown of skin; E11.69 Type 2 diabetes mellitus with other specified complication; M86.672 Other chronic osteomyelitis, left ankle and foot; I48.92 Unspecified atrial flutter; M62.81 Muscle weakness (generalized); F17.210 Nicotine dependence, cigarettes, uncomplicated; R26.81 Unsteadiness on feet; I25.10 Atherosclerotic heart disease of native coronary artery without angina pectoris; E11.22 Type 2 diabetes mellitus with diabetic chronic kidney disease; I12.0 Hypertensive chronic kidney disease with stage 5 chronic kidney disease or end stage renal disease; N18.6 End stage renal disease; Z99.2 Dependence on renal dialysis; F32.9 Major depressive disorder, single episode, unspecified; K21.9 Gastro-esophageal reflux disease without esophagitis; E11.52 Type 2 diabetes mellitus with diabetic peripheral angiopathy with gangrene; I25.2 Old myocardial infarction; Z87.891 Personal history of nicotine dependence; Y83.2 Surgical operation with anastomosis, bypass or graft as the cause of abnormal reaction of the patient, or of later complication, without mention of misadventure at the time of the procedure ==

== ENCOUNTER → 2017-06-29 | Outpatient (CLI) | payer OTHER | LOC: HYPER 06-24 11:08 | DX: T87.81 Dehiscence of amputation stump (principal); E11.69 Type 2 diabetes mellitus with other specified complication; M86.672 Other chronic osteomyelitis, left ankle and foot; E11.51 Type 2 diabetes mellitus with diabetic peripheral angiopathy without gangrene; E11.42 Type 2 diabetes mellitus with diabetic polyneuropathy; E11.22 Type 2 diabetes mellitus with diabetic chronic kidney disease; I12.0 Hypertensive chronic kidney disease with stage 5 chronic kidney disease or end stage renal disease; N18.6 End stage renal disease; E78.4 Other hyperlipidemia; I48.92 Unspecified atrial flutter; I25.10 Atherosclerotic heart disease of native coronary artery without angina pectoris; I25.2 Old myocardial infarction; I96 Gangrene, not elsewhere classified; M62.81 Muscle weakness (generalized); K21.9 Gastro-esophageal reflux disease without esophagitis; F17.210 Nicotine dependence, cigarettes, uncomplicated; F32.9 Major depressive disorder, single episode, unspecified; Z89.432 Acquired absence of left foot; Z99.2 Dependence on renal dialysis; Y83.5 Amputation of limb(s) as the cause of abnormal reaction of the patient, or of later complication, without mention of misadventure at the time of the procedure ==

== ENCOUNTER → 2017-06-30 | Outpatient (CLI) | payer OTHER | LOC: HYPER 07:55 | DX: T81.31XD Disruption of external operation (surgical) wound, not elsewhere classified, subsequent encounter (principal); E11.69 Type 2 diabetes mellitus with other specified complication; M86.672 Other chronic osteomyelitis, left ankle and foot; E11.51 Type 2 diabetes mellitus with diabetic peripheral angiopathy without gangrene; E11.42 Type 2 diabetes mellitus with diabetic polyneuropathy; E11.22 Type 2 diabetes mellitus with diabetic chronic kidney disease; I12.0 Hypertensive chronic kidney disease with stage 5 chronic kidney disease or end stage renal disease; N18.6 End stage renal disease; I25.10 Atherosclerotic heart disease of native coronary artery without angina pectoris; I25.2 Old myocardial infarction; I48.92 Unspecified atrial flutter; I96 Gangrene, not elsewhere classified; K21.9 Gastro-esophageal reflux disease without esophagitis; F17.210 Nicotine dependence, cigarettes, uncomplicated; F32.9 Major depressive disorder, single episode, unspecified; Z99.2 Dependence on renal dialysis; Z89.432 Acquired absence of left foot; Z89.422 Acquired absence of other left toe(s); Z89.022 Acquired absence of left finger(s); Y83.8 Other surgical procedures as the cause of abnormal reaction of the patient, or of later complication, without mention of misadventure at the time of the procedure ==

== ENCOUNTER → 2017-07-01 | Outpatient (CLI) | payer OTHER | LOC: HYPER 07:46 | DX: T81.31XD Disruption of external operation (surgical) wound, not elsewhere classified, subsequent encounter (principal); E11.69 Type 2 diabetes mellitus with other specified complication; M86.672 Other chronic osteomyelitis, left ankle and foot; E11.51 Type 2 diabetes mellitus with diabetic peripheral angiopathy without gangrene; E11.42 Type 2 diabetes mellitus with diabetic polyneuropathy; E11.22 Type 2 diabetes mellitus with diabetic chronic kidney disease; I12.0 Hypertensive chronic kidney disease with stage 5 chronic kidney disease or end stage renal disease; N18.6 End stage renal disease; I48.92 Unspecified atrial flutter; M62.81 Muscle weakness (generalized); I25.10 Atherosclerotic heart disease of native coronary artery without angina pectoris; I96 Gangrene, not elsewhere classified; I25.2 Old myocardial infarction; K21.9 Gastro-esophageal reflux disease without esophagitis; F17.210 Nicotine dependence, cigarettes, uncomplicated; F32.9 Major depressive disorder, single episode, unspecified; Z89.422 Acquired absence of other left toe(s); Z99.2 Dependence on renal dialysis; Z89.432 Acquired absence of left foot; Z89.022 Acquired absence of left finger(s); Y83.8 Other surgical procedures as the cause of abnormal reaction of the patient, or of later complication, without mention of misadventure at the time of the procedure ==

== ENCOUNTER 2017-07-06 15:45 | Inpatient (IN) | payer OTHER ==
[~2017-07-06] VITALS: Ht 175.3 cm; Wt 85.3 kg
--- NOTE | ~2017-07-06 | HC ---
[facility] [place] [address] CONSULTATION Name: AZALEA LOWERY Room #: 461-P ADM IN M.R.#: [id number] Admission: 07/06/17 Attend Phys: Melissa Almodovar Discharge: Date of : 47 Report #: [id number] THIS REPORT FOR: //name// CC: Peter FINNEY PCP DATE OF SERVICE: 07/07/2017 ATTENDING PHYSICIAN: Dr. Sharp. REASON FOR CONSULTATION: End-stage renal disease requiring dialysis. HISTORY OF PRESENT ILLNESS: The patient with a left foot wound after transmetatarsal amputation, has been slow to heal. He has been getting hyperbaric treatments. His wound care physician, Dr. Mihai Hayes, recommended admission for further evaluation and IV antibiotics. PAST MEDICAL HISTORY: End-stage renal disease, on dialysis for 6 years. History of diabetes and hypertension. FAMILY HISTORY: Unremarkable, negative for renal disease, heart disease, diabetes. SOCIAL HISTORY: Former heavy smoker, but he quit. No substantial alcohol. Retired. REVIEW OF SYSTEMS: GENERAL: Otherwise, been feeling well. EYES: Vision is okay. ENT: Hearing okay, swallows okay. No mouth sores. ENDOCRINE: Diabetes, but no medications. RESPIRATORY: Denies shortness of breath, wheezing, asthma. CARDIAC: Denies chest pain, angina or history of heart failure. GASTROINTESTINAL: Denies nausea, vomiting, diarrhea. GENITOURINARY: Makes very little urine. NEUROMUSCULAR: Denies weakness, arthritis, seizures, peripheral neuropathy. HOME MEDICATIONS: Ascorbic acid 500 mg daily, aspirin 81 mg daily, renal vitamins, PhosLo 1 with meals t.i.d., carvedilol 25 mg b.i.d., Plavix 75 mg daily, Neurontin 600 mg daily, losartan 50 mg daily, Percocet p.r.n., Pravachol 20 mg daily, zinc 50 mg daily. Extensive history taken from the electronic medical record and from the patient at the bedside who gives a good history. PHYSICAL EXAMINATION: [facility] [address] [place] [address] CONSULTATION Name: AZALEA LOWERY Room #: [address] [place] [address] IN M.R.#: [id number] Admission: 07/06/17 Attend Phys: Melissa Almodovar Discharge: Date of : 47 Report #: [id number] GENERAL: This is a reasonably comfortable appearing gentleman, lucid, giving a good history. SKIN: Unremarkable. SKELETAL: Dressing over the left foot where he has had the transmetatarsal amputation. HEENT: Extraocular movements are full. Vision intact. No scleral icterus. Hearing intact. Mucous membranes moist. Tongue, buccal mucosa benign. NECK: Supple, no carotid bruits. CHEST: Clear to auscultation. HEART: Regular. ABDOMEN: Soft and nontender. EXTREMITIES: Show diminished pulses on the right, dressing on the left foot. LABORATORY DATA: Hemoglobin 10.4, white count 7.2. Sodium 138, potassium 4.9, chloride 96, bicarbonate 37, creatinine 9.1, BUN 59, albumin only 2.6. Portable chest x-ray personally reviewed, shows cardiomegaly, but no infiltrates or failure. Foot x-rays personally reviewed, shows left foot amputation, vascular calcifications and no findings for osteomyelitis. ASSESSMENT: 1. End-stage renal disease, due for dialysis today. Orders and dialysis team notified. 2. Poorly healing left foot wound, might need vascular evaluation. 3. History of diabetes mellitus. 4. History of hypertension, on medications. <ELECTRONICALLY SIGNED> By: Torrey Montiel MD 07/13/17 1022 0911 1509 Torrey Montiel MD /nt
--- NOTE | ~2017-07-06 | HC ---
[facility] [place] [address] CONSULTATION Name: AZALEA LOWERY Annemarie Room #: 461-P ADM IN M.R.#: [id number] Admission: 07/06/17 Attend Phys: Melissa Almodovar Discharge: Date of : 47 Report #: [id number] THIS REPORT FOR: //name// CC: Melissa Almodovar NO PCP DATE OF SERVICE: 07/07/2017 REASON FOR CONSULTATION: Pain, swelling, drainage and infection of nonhealing left foot open transmetatarsal amputation stump in a nondiabetic patient with end-stage renal disease, on dialysis and with severe peripheral artery disease. HISTORY OF PRESENT ILLNESS: The patient is a very pleasant 72-year-old gentleman well known to the [facility] wound care team. This gentleman was first seen in the wound care center at [facility] on 04/28/2017. He is a surgical patient of Dr. Flaquito So and Dr. Chivo Kapadia. Dr. Flaquito So had initially performed amputation of several toes. When these wounds failed to heal, the patient was seen by Dr. Kapadia. The patient had nonhealing wounds and osteomyelitis of the foot. Transmetatarsal amputation was done which was closed; however, the wound had failed to heal completely and the patient's orthopedic surgeon, Dr. Kapadia advised him to seek at [facility] for hyperbaric oxygen therapy. The patient has had 37 to 40 scheduled hyperbaric oxygen treatments done. More recently, the dry black eschar in two areas of the left nonhealing transmetatarsal amputation stump have become liquefied and were and debridement of this necrotic tissue from the transmetatarsal amputation stump was done. The patient was doing well; however, developed increased pain in the foot, had difficulty walking, noticed redness and swelling consistent with infection. The patient was admitted to the hospital for IV antibiotics and further evaluation. PAST MEDICAL HISTORY: The patient is a cigarette smoker. He has known peripheral vascular disease of the lower extremities. The patient underwent angioplasty and left leg stenting of mid and proximal superficial femoral artery in 08/2015. The patient had unsuccessful angioplasty of the left anterior tibial artery in 02/2017. On 03/04/2017, the patient had angiography and balloon angioplasty of his left popliteal. In 02/2017, Dr. Flaquito So did amputation of his left first, fourth and fifth toes. On 04/07/2017, the patient underwent transmetatarsal amputation of the left foot at [facility] by Dr. Kapadia. The patient has history of ischemic cardiomyopathy. The patient had non-ST elevated myocardial infarction on 04/28/2016 with ejection fraction of 55%. The patient has single-vessel coronary artery disease of the left anterior descending coronary artery. The patient is nondiabetic. The patient has had previous arterial Doppler studies on 04/07/2017 showing left mid superficial femoral artery 50% to 75% stenosis with monophasic signals. The patient was later evaluated by Dr. Alcala at [facility] in 04/2017. The patient is currently admitted with infection of the left transmetatarsal amputation stump. The [address] [address] CONSULTATION Name: HORACIOBOLAAZALEA L Room #: 461-P ADM IN M.R.#: [id number] Admission: 07/06/17 Attend Phys: Melissa Almodovar Discharge: Date of : 47 Report #: [id number] patient has history of end-stage renal disease, on hemodialysis. The patient has history of osteomyelitis to the left foot requiring amputation. REVIEW OF SYSTEMS: The patient notes increased pain, redness, swelling and drainage of the left foot. PHYSICAL EXAMINATION: GENERAL: Shows chronically ill-appearing male. VITAL SIGNS: The patient is afebrile. HEENT: Mucous membranes are moist. LUNGS: Respirations unlabored. ABDOMEN: Soft. HEART: Shows regular rate and rhythm. EXTREMITIES: Shows left transmetatarsal amputation with 2 open wounds of the distal stump, each measuring approximately 4 x 2 cm. A portion of each wound has a black dry eschar with remaining open areas which show granulation tissue and superficial necrotic adipose tissue with some exudate. Foot is somewhat red, somewhat swollen and tender to touch. IMPRESSION: 1. Coronary artery disease. 2. Tobaccoism. 3. Severe peripheral vascular disease of the lower extremities. 4. History of transmetatarsal amputation of the left foot for ischemic gangrene and osteomyelitis. 5. Nonhealing transmetatarsal amputation stump. 6. End-stage renal disease, on hemodialysis. 7. Infection of the left transmetatarsal amputation stump. PLAN: Treat the patient with broad-spectrum IV antibiotics. Wound culture done. We will re-perform arterial Doppler of the lower extremities. Consult Dr. Alcala for any arterial interventions which may be done. It has been recognized since the patient first presented to the wound care clinic that he has a threatened left limb and all the efforts including hyperbaric oxygen therapy and attempts at revascularization are with limb salvage in mind. The patient will be seen by Dr. Alcala and by Dr. Hayes. Continue broad-spectrum antibiotics, local wound care. <ELECTRONICALLY SIGNED> By: Cresencio Sharp MD 07/11/17 1129 1213 1745 Cresencio Sharp MD /sregio
--- NOTE | ~2017-07-06 | HC ---
[facility] [place] [address] CONSULTATION Name: AZALEA LOWERY Room #: 461-P ADM IN M.R.#: [id number] Admission: 07/06/17 Attend Phys: Melissa Almodovar Discharge: Date of : 47 Report #: [id number] THIS REPORT FOR: //name// CC: Melissa Almodovar NO PCP DATE OF SERVICE: 07/10/2017 REASON FOR CONSULTATION: Left foot osteomyelitis. HISTORY OF PRESENT ILLNESS: The patient is a 72-year-old gentleman who had a left transmetatarsal amputation about 3 months ago. He has continued to have wound problems from this and drainage. He was admitted for this. He has had an MRI scan as well as x-rays of the foot. We have been consulted to discuss possible further debridement versus below knee amputation. PAST MEDICAL HISTORY: End-stage renal disease, on dialysis for 6 years; diabetes; hypertension. SOCIAL HISTORY: He is a former smoker, but quit. No alcohol or drug abuse. MEDICATIONS: Have been reviewed and are on the chart. PHYSICAL EXAMINATION: GENERAL: Well-developed, well-nourished male in no acute distress. He is alert and oriented, pleasant, cooperative with exam. EXTREMITIES: Examination of the left foot shows him to have transmetatarsal fracture. He has 2 wounds on his foot and both medially and laterally with exposed medial and middle cuneiform bones and the base of the wound. IMAGING: MRI scan of the foot shows him to have osteomyelitis of his middle and medial cuneiform bones with overlying wound. ASSESSMENT: Left foot medial and middle cuneiform osteomyelitis with poor vascular flow. PLAN: I am doubtful that debridement of the cuneiforms will be adequate for healing of this wound. My recommendation would be for a below-knee amputation given his overall vascular status and medical comorbidities. I have discussed this with him and he is going to speak with his daughter about it and let us know what he would like to do. In addition, I will try to get in touch with his daughter and talk with her regarding the treatment options for his foot. If his surgery does take place this weekend, it would be by one of my partners, Dr. Beckman; otherwise, I potentially could have time next week to do it. [address] [address] CONSULTATION Name: AZALEA LOWERY Annemarie Room #: 461-P [facility] IN M.R.#: [id number] Admission: 07/06/17 Attend Phys: Melissa Almodovar Discharge: Date of : 47 Report #: [id number] Thank you for allowing us to participate in the care of the patient. <ELECTRONICALLY SIGNED> By: Neftali Reed MD 07/13/17 1351 1249 0421 Neftali Reed MD /nt
--- NOTE | ~2017-07-06 | HC ---
[facility] [place] [address] CONSULTATION Name: AZALEA LOWERY Room #: 461-P ADM IN M.R.#: [id number] Admission: 07/06/17 Attend Phys: Melissa Almodovar Discharge: Date of : 47 Report #: [id number] THIS REPORT FOR: //name// CC: Melissa FINNEY PCP DATE OF SERVICE: 07/10/2017 INFECTIOUS DISEASE CONSULTATION ATTENDING PHYSICIAN: Melissa Almodovar MD CONSULTATION REQUESTED BY: Mihai Hayes MD REASON FOR CONSULTATION: Multiple drug-resistant organism infection, left diabetic foot ulcer. HISTORY OF PRESENT ILLNESS: A 72-year-old man hospitalized at [facility] with chronic ulceration, left foot and peripheral vascular disease, evaluated by Dr. Chavez. The patient's feet ulcerations revealed growth of Acinetobacter baumannii, a rather resistant organism and ID opinion is requested. The patient voices no major complaint. He apparently had a previous transmetatarsal amputation of the foot at [facility]. PAST MEDICAL HISTORY: Diabetes mellitus, end-stage renal disease on hemodialysis, anemia of chronic disease, previous transmetatarsal amputation of the left foot at [facility], peripheral vascular disease requiring stenting. DRUG ALLERGIES: None listed. MEDICATIONS: The patient is on treatment with Zosyn 3.375 g IV every 12 hours, normal saline IV, fentanyl patch, sodium hypochlorite topical, calcium acetate, zinc sulfate, gabapentin, aspirin, losartan, clopidogrel bisulfate, multivitamins, p.r.n. oxycodone, atorvastatin, carvedilol, insulin release per sliding scale, p.r.n. glucose, glucagon, p.r.n. ondansetron, p.r.n. morphine sulfate. SOCIAL HISTORY: See H and P, old records. FAMILY HISTORY: See H and P, old records. REVIEW OF SYSTEMS: As above. PHYSICAL EXAMINATION: GENERAL: Well developed, not toxic looking man. [facility] [address] [place] [address] CONSULTATION Name: AZALEA LOWERY Room #: [address] [place] [address] [place] [facility].#: [id number] Admission: 07/06/17 Attend Phys: Melissa Almodovar Discharge: Date of : 47 Report #: [id number] VITAL SIGNS: Temperature maximum 99.5, pulse 87, respirations 20, BP 149/80. HEENMT: Arcus cornealis. Pupils small, reactive. Mouth: No thrush. NECK: Supple. LUNGS: Clear. HEART: S1, S2. No gallop. ABDOMEN: Soft, no masses or megaly. EXTREMITIES: Left arm AV fistula with aneurysmal dilatation of the fistula. The left foot reveals transmetatarsal amputation and a couple of ulceration with recent bleeding. LABORATORY DATA: Sodium 133, potassium 5.5, BUN 59, creatinine 9.1, albumin 2.4. WBC 6.2, hemoglobin 9.5, platelets 149,000. Hemoglobin A1c 5%. MICROBIOLOGY DATA: Blood cultures negative. Foot wound culture revealed Acinetobacter baumannii sensitive to ampicillin/sulbactam intermediate to cefepime and Levaquin. RADIOLOGY EVALUATION: X-ray of the left foot reveals status post transmetatarsal amputation and extensive vascular calcifications with significant osteoporosis and destruction of normal architecture of bone of left foot. MRI of the foot revealed findings compatible with osteomyelitis of the middle cuneiform. Arteriogram today revealed interval restenosis, distal left posterior tibial artery requiring angioplasty. ASSESSMENT: 1. Left diabetic foot ulcerations in a patient with transmetatarsal amputation of the foot and osteomyelitis of the cuneiform. 2. 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 3. Peripheral vascular disease. 4. End-stage renal disease, on hemodialysis. SUGGESTIONS: Recommend discontinue Zosyn. Unasyn 1.5 g IV every [address] Mihai Hayes, thank you for requesting my suggestions. <ELECTRONICALLY SIGNED> By: Ian Randall MD 07/13/17 1034 1351 0504 Ian Randall MD /nt
--- NOTE | ~2017-07-06 | P ---
[facility] [place] [address] PROCEDURE REPORT Name: AZALEA LOWERY Room #: 461-P ADM IN M.R.#: [id number] Admission: 07/06/17 Attend Phys: Melissa Almodovar Discharge: Date of : 47 Report #: [id number] THIS REPORT FOR: //name// CC: Melissa FINNEY [facility] DATE OF SERVICE: 07/10/2017 PERSONAL PHYSICIAN: Melissa Almodovar MD CHIEF COMPLAINT: Left foot surgical wound with necrosis. PREPROCEDURE DIAGNOSES: 1. Left transmetatarsal amputation surgical site with dehiscence and necrosis. (The patient has both of medial and lateral wound on the transmetatarsal amputation site). 2. End-stage renal disease on hemodialysis. PROCEDURE NOTE: After timeout was taken, verbal consent was obtained. The patient had excisional debridement down to and including subcutaneous tissue with removal of both viable and nonviable tissue. 100% of each of both of the medial and lateral surgical wounds were debrided using a scalpel and forceps. Topical lidocaine was used for anesthesia. Predebridement measurements on the lateral surgical wound were 5.9 x 3.9 x 0.9. Post-debridement measurements were 6.3 x 3.9 x 1.5 cm. The medial wound measurements predebridement were 6.4 x 3.4 x 1.0 cm. Post-debridement measurements on the medial aspect were 7.2 x 3.4 x 2.0 cm. Total amount of excisional debridement of the subcutaneous tissues was 49.1 ____ cm. The patient tolerated the procedure well. Bleeding was minimal and easily controlled with pressure. Post-debridement, the patient had Dakin's wet-to-dry dressing placed over the wounds. Once again, this was an excisional debridement into the subcutaneous tissues for a total of 49.1 square cm. By: 0846 2110 Mihai Hayes MD /nt
--- NOTE | ~2017-07-06 | EKG ---
[place] [address] [facility] [employer] [place] [address] ELECTROCARDIOGRAM REPORT Name: AZALEA LOWERY Room #: 461-P ADM IN M.R.#: [id number] Admission: 07/06/17 Attend Phys: Peter Sharp MD Discharge: Date of : 47 Report #: [id number] THIS REPORT FOR: //name// [facility] ED Test Date: 2017-07-06 Test Time: 18:10:10 Pat Name: AZALEA LOWERY Department: Room: 46 Gender: M Casserole Preparer: ANNIA : 1945 Requested By: Jasmeet Rosales Order Number: [id number] MD: Gwyn Xiong Measurements Intervals [place] Rate: 95 P: PA: QRS: 9 QRSD: 110 T: 58 QT: 410 QTc: 516 Interpretive Statements Atrial flutter Probable left ventricular hypertrophy Poor R wave progression Prolonged QT interval Baseline wander in lead(s) I,II,aVR No previous ECG available for comparison Electronically Signed On 07-07-2017 9:09:24 CDT by Gwyn Xiong [email or web address] <ELECTRONICALLY SIGNED> By: Gwyn Xiong MD, [facility] 07/07/17 0909 1810 1810 Gwyn Xiong MD, [facility] /EPI
[2017-07-06 15:46] VITALS: BP 133/79
[2017-07-06 17:22] LABS: ABSOLUTE NEUTROPHILS 5.4 thou/uL (1.4-8.2); BASOPHILS 0.5 % (0.0-2.0); EOSINOPHILS 1.5 % (0.0-3.0); HEMATOCRIT 31.8 % (42.0-52.0); HEMOGLOBIN 10.4 gm/dL (14.0-18.0); LYMPHOCYTES 14.3 % (24.0-44.0); MCH 31.2 pg (26.0-34.0); MCHC 32.8 g/dL (28.0-37.0); PLATELET COUNT 162 thou/uL (150-400); POLYS 74.7 % (36.0-66.0); RBC 3.35 mil/uL (4.50-6.00); RDW 15.9 % (10.5-14.5); WBC 7.2 thou/uL (4.0-11.0)
[2017-07-06 17:31] LABS: ANION GAP 5 mmol/L (7-16); BUN 59 mg/dL (7-18); CALCIUM 9.4 mg/dL (8.5-10.1); CHLORIDE 96 mmol/L (98-107); CO2 37 mmol/L (21-32); CREATININE 9.1 mg/dL (0.7-1.3); GLUCOSE 102 mg/dL (74-106); POTASSIUM 4.9 mmol/L (3.5-5.1); SODIUM 138 mmol/L (136-145)
[2017-07-06 17:40] LABS: ALBUMIN 2.6 g/dL (3.4-5.0); SGOT 20 U/L (15-37); SGPT 17 U/L (30-65); TOTAL BILIRUBIN 0.7 mg/dL (<0.1-1.0); TOTAL PROTEIN 8.2 g/dL (6.4-8.2); TROPONIN-I < 0.04 ng/mL (<0.06)
[2017-07-06 20:19] VITALS: BP 152/85
[2017-07-06 20:25] VITALS: BP 151/72
[2017-07-06] MEDS ORDERED: CALCIUM ACETAT667 MG PO (22:27)
[2017-07-06] MEDS ORDERED: PERCOCET 7.5-31 EACH PO (22:28)
[2017-07-06] MEDS ORDERED: VIRT-CAPS SOFTGE1 MG PO (22:29)
[2017-07-06] MEDS ORDERED: COREG25 MG PO (22:29)
[2017-07-06] MEDS ORDERED: PLAVIX 75 MG TA75 M1 PO (22:30)
[2017-07-06] MEDS ORDERED: NEURONTIN600 MG PO (23:26)
[2017-07-06] MEDS ORDERED: PRAVACHOL20 MG PO (23:27)
[2017-07-06] MEDS ORDERED: ASPIR 8181 MG PO (23:28)
[2017-07-06] MEDS ORDERED: VITAMINC500 PO (23:28)
[2017-07-06] MEDS ORDERED: COZAAR 50 MG TA50 M2 PO (23:28)
[2017-07-06] MEDS ORDERED: MIRALAX17 GM PO (23:28)
[2017-07-06] MEDS ORDERED: ZINC50 M1 PO (23:29)
[2017-07-07 03:18] VITALS: BP 96/60
[2017-07-07 08:17] VITALS: BP 144/77
[2017-07-07 16:22] VITALS: BP 163/87
[2017-07-07 19:28] VITALS: BP 134/64
[2017-07-08 03:36] VITALS: BP 160/98
[2017-07-08 06:01] LABS: ALBUMIN 2.7 g/dL (3.4-5.0); ANION GAP 9 mmol/L (7-16); BUN 39 mg/dL (7-18); CALCIUM 9.2 mg/dL (8.5-10.1); CHLORIDE 95 mmol/L (98-107); CHOLESTEROL 112 mg/dL (<200); CO2 30 mmol/L (21-32); GLUCOSE 86 mg/dL (74-106); HDL CHOLESTEROL 32 mg/dL (>40); LDL CHOLESTEROL 69 mg/dL (<100); PHOSPHORUS 5.5 mg/dL (2.5-4.9); POTASSIUM 5.3 mmol/L (3.5-5.1); SODIUM 134 mmol/L (136-145); TC:HDL 3.5 Ratio (Not establshd); TRIGLYCERIDE 55 mg/dL (<150); VLDL 11 mg/dL (<40)
[2017-07-08 06:02] LABS: CREATININE 6.8 mg/dL (0.7-1.3); SERUM ASSESSMENT Slight Lipemia
[2017-07-08 07:28] VITALS: BP 157/97
[2017-07-08 16:28] VITALS: BP 153/90
[2017-07-08 20:00] VITALS: BP 103/43
[2017-07-09 04:00] VITALS: BP 130/71
[2017-07-09 07:32] LABS: HEMATOCRIT 28.5 % (42.0-52.0); HEMOGLOBIN 9.5 gm/dL (14.0-18.0); MCH 31.3 pg (26.0-34.0); MCHC 33.2 g/dL (28.0-37.0); MCV 94.1 fL (80.0-100.0); RBC 3.03 mil/uL (4.50-6.00); RDW 15.7 % (10.5-14.5); WBC 6.2 thou/uL (4.0-11.0)
[2017-07-09 07:49] LABS: INR 1.1; PROTIME 11.5 Seconds (9.3-11.4)
[2017-07-09 07:54] LABS: ALBUMIN 2.4 g/dL (3.4-5.0); CALCIUM 8.5 mg/dL (8.5-10.1); POTASSIUM 5.5 mmol/L (3.5-5.1); TOTAL BILIRUBIN 0.5 mg/dL (<0.1-1.0); TOTAL PROTEIN 7.4 g/dL (6.4-8.2)
[2017-07-09 07:57] LABS: CREATININE 9.1 mg/dL (0.7-1.3)
[2017-07-09 12:13] VITALS: BP 135/69
[2017-07-09 19:08] VITALS: BP 153/52
[2017-07-10 04:40] VITALS: BP 126/46
[2017-07-10 08:46] VITALS: BP 149/80
[2017-07-10 16:33] VITALS: BP 141/51
[2017-07-10 19:18] VITALS: BP 133/54
[2017-07-11 04:18] VITALS: BP 145/89
[2017-07-11 06:26] LABS: ALBUMIN 2.3 g/dL (3.4-5.0); CALCIUM 8.7 mg/dL (8.5-10.1); PHOSPHORUS 5.3 mg/dL (2.5-4.9); POTASSIUM 4.2 mmol/L (3.5-5.1)
[2017-07-11 06:29] LABS: CREATININE 8.1 mg/dL (0.7-1.3)
[2017-07-11 07:46] VITALS: BP 175/83
[2017-07-11 16:45] VITALS: BP 166/79
[2017-07-11 20:00] VITALS: BP 156/72
[2017-07-12 04:30] VITALS: BP 176/92
[2017-07-12 07:30] VITALS: BP 185/93
[2017-07-12 15:05] VITALS: BP 137/76
[2017-07-12 19:40] VITALS: BP 177/90
[2017-07-13 05:04] VITALS: BP 187/101
[2017-07-13 08:00] VITALS: BP 179/89
[2017-07-13] MEDS ORDERED: NORVASC10 MG PO (09:52)
[2017-07-13] MEDS ORDERED: AUGMENTIN 875-1 EACH PO (09:53)
[2017-07-13 11:30] VITALS: BP 188/94
[2017-07-13 16:00] VITALS: BP 172/87
[2017-07-13 19:48] VITALS: BP 169/63
== END 2017-07-14 01:32 | disposition home health service (06) | DRG 463 ==
LOC: ER 15:45 → 4W 19:20 → EROBS 19:20 → 4W 20:26
PROVIDERS: Hospitalist; Internal Medicine Nephrology; Nuclear Medicine Nuclear Cardiology; Physician Assistant
PROC: 5A1D70Z Performance of Urinary Filtration, Intermittent, Less than 6 Hours Per Day (ICD-10-PCS; principal; 2017-07-06)
PROC: 047Q3ZZ Dilation of Left Anterior Tibial Artery, Percutaneous Approach (ICD-10-PCS; 2017-07-09)
PROC: 04CS3ZZ Extirpation of Matter from Left Posterior Tibial Artery, Percutaneous Approach (ICD-10-PCS; 2017-07-09)
PROC: 5A1D70Z Performance of Urinary Filtration, Intermittent, Less than 6 Hours Per Day (ICD-10-PCS; 2017-07-09)
PROC: 0JBR0ZZ Excision of Left Foot Subcutaneous Tissue and Fascia, Open Approach (ICD-10-PCS; 2017-07-10)
PROC: 5A1D70Z Performance of Urinary Filtration, Intermittent, Less than 6 Hours Per Day (ICD-10-PCS; 2017-07-11)
PROC: 5A1D70Z Performance of Urinary Filtration, Intermittent, Less than 6 Hours Per Day (ICD-10-PCS; 2017-07-14)
DX: T87.44 Infection of amputation stump, left lower extremity (principal); N18.6 End stage renal disease; L03.116 Cellulitis of left lower limb; M86.172 Other acute osteomyelitis, left ankle and foot; E44.0 Moderate protein-calorie malnutrition; I12.0 Hypertensive chronic kidney disease with stage 5 chronic kidney disease or end stage renal disease; E11.69 Type 2 diabetes mellitus with other specified complication; E11.51 Type 2 diabetes mellitus with diabetic peripheral angiopathy without gangrene; Y83.5 Amputation of limb(s) as the cause of abnormal reaction of the patient, or of later complication, without mention of misadventure at the time of the procedure; E11.22 Type 2 diabetes mellitus with diabetic chronic kidney disease; E78.5 Hyperlipidemia, unspecified; N18.9 Chronic kidney disease, unspecified; E11.621 Type 2 diabetes mellitus with foot ulcer; Z16.39 Resistance to other specified antimicrobial drug; Z89.412 Acquired absence of left great toe; Z82.49 Family history of ischemic heart disease and other diseases of the circulatory system; Z68.27 Body mass index [BMI] 27.0-27.9, adult; Z87.891 Personal history of nicotine dependence; Z95.820 Peripheral vascular angioplasty status with implants and grafts; Z79.899 Other long term (current) drug therapy; Z79.82 Long term (current) use of aspirin; Z99.2 Dependence on renal dialysis
CPT/HCPCS: 10045; 32100

== ENCOUNTER 2017-07-17 15:06 | Inpatient (IN) | payer OTHER ==
[~2017-07-17] VITALS: Ht 175.3 cm; Wt 83.7 kg
--- NOTE | ~2017-07-17 | HC ---
[facility] [place] [address] CONSULTATION Name: AZALEA LOWERY Room #: 452-P ADM IN M.R.#: [id number] Admission: 07/17/17 Attend Phys: Sridevi Taylor MD Discharge: Date of : 47 Report #: [id number] THIS REPORT FOR: //name// CC: Mack Hayes REASON FOR CONSULTATION: End-stage renal disease. REASON FOR PRESENTATION: Wound issues. HISTORY OF PRESENT ILLNESS: The patient is well known to us. He has an end-stage renal disease, who is maintained on dialysis every Thursday, and Thursday. He has long-standing diabetes mellitus and hypertension. He was recently discharged from the hospital and was followed by Wound Care after a transmetatarsal amputation. He called his daughter and told her that the home health people are not taking him and was dropped back in the hospital for further evaluation and management. He had extensive peripheral vascular disease, and those had been intervened upon back in April of this year. I am being asked to manage his end-stage renal disease. PAST MEDICAL HISTORY: 1. End-stage renal disease. 2. Recent transmetatarsal amputation. 3. Diabetes mellitus. 4. Hypertension. SOCIAL HISTORY: Former smoker. No drug or alcohol abuse. FAMILY HISTORY: Significant for diabetes mellitus and hypertension. REVIEW OF SYSTEMS: GENERAL: No fever or chills. CARDIOVASCULAR: No chest pain or palpitation. PULMONARY: No cough or hemoptysis. GASTROINTESTINAL: No nausea, vomiting. MUSCULOSKELETAL: As per the history of present illness. MEDICATIONS: Currently, the patient is maintained on the followin. Augmentin. 2. Carvedilol. 3. Losartan. 4. Aspirin 5. Gabapentin. 6. Pravastatin. PAST SURGICAL HISTORY: 1. AV fistula. [facility] [address] [place] [address] CONSULTATION Name: AZALEA LOWERY Annemarie Room #: 452-P [facility] IN [facility]#: [id number] Admission: 07/17/17 Attend Phys: Sridevi Taylor MD Discharge: Date of : 47 Report #: [id number] 2. Numerous angiograms and intervention for his peripheral arterial disease. 3. Recent transmetatarsal amputation. PHYSICAL EXAMINATION: GENERAL: He is alert, oriented, in no apparent distress. VITAL SIGNS: Temperature is 36.7, pulse rate is 75, blood pressure is 160/60. HEAD AND NECK: No jugular venous distention or bruit, thyromegaly. CHEST: No crackles. CARDIOVASCULAR: Regular, with no rub. ABDOMEN: Soft, nontender with no hepatosplenomegaly. LOWER EXTREMITIES: Dressing applied over the transmetatarsal amputation. No edema. LABORATORY DATA: Reviewed. Hemoglobin 9. BUN 48, creatinine 10.5. ASSESSMENT, IMPRESSION AND PLAN: 1. End-stage renal disease. 2. Diabetes mellitus. 3. Hypertension. 4. Recent transmetatarsal amputation with ongoing wound issues. 5. Dialysis today. 6. Resume his blood pressure medications. 7. Resume blood sugar medications. 8. Wound care and further plans per the primary team. <ELECTRONICALLY SIGNED> By: Juan Jose Mcdonald MD 07/22/17816 9 3 Juan Jose Mcdonald MD /nt
--- NOTE | ~2017-07-17 | HC ---
[facility] [place] [address] CONSULTATION Name: AZALEA LOWERY Room #: 452-P ADM IN M.R.#: [id number] Admission: 07/17/17 Attend Phys: Mack Cartwright MD Discharge: Date of : 47 Report #: [id number] THIS REPORT FOR: //name// CC: Mack Curryhens REASON FOR CONSULTATION: I was asked to reevaluate the patient's left foot osteomyelitis. HISTORY OF PRESENT ILLNESS: The patient was a 72-year-old with previous left foot proximal transmetatarsal amputation with flap closure. He has underlying peripheral vascular disease and has had stents placed in both lower extremities. He was hospitalized on 07/06/2017 due to Acinetobacter baumannii growing from his foot wound. He was treated with Unasyn and discharged on Augmentin. The patient returns to the Emergency Room for wound dressing change. Unclear exactly why. He has not followed up yet following his discharge 5 days ago with any other physicians. His initial transmetatarsal amputation was at [facility]. No fever, chills or sweats. Pain is controlled. Now is on dialysis. REVIEW OF SYSTEMS: No cough, sputum, nausea, vomiting, diarrhea. ALLERGIES: None. MEDICATIONS: As noted on his MAR, having been started on vancomycin and Levaquin last evening. PAST MEDICAL HISTORY: Diabetes, end-stage renal disease on hemodialysis, left AV fistula, peripheral vascular disease status post stenting. FAMILY HISTORY AND SOCIAL HISTORY: Otherwise, noncontributory. PHYSICAL EXAMINATION: VITAL SIGNS: Afebrile, hemodynamically stable. GENERAL: He is alert and cooperative and pleasant, in no acute distress. HEENT: Unremarkable. CHEST: Clear. HEART: Regular. ABDOMEN: Soft and nontender. EXTREMITIES: Right foot had a very large toenail on toe #1, which was pressing on toe #2 and causing an ulceration. Also had distal wound to toe #3 with eschar. The left transmetatarsal amputation site had a flap with incision that was closed in the central portion about 1 cm. Otherwise, was open with wounds laterally. No purulent drainage. Some fatty necrosis evident. Minimal granulation tissue. No surrounding erythema or fluctuance. Pulses were diminished in the foot. [address] [address] CONSULTATION Name: AZALEA LOWERY Room #: [address] [place] [address] [place] [facility].#: [id number] Admission: 07/17/17 Attend Phys: Mack Cartwright MD Discharge: Date of : 47 Report #: [id number] LABORATORY DATA: Sodium 139, potassium 3.9, bicarbonate 33, creatinine 10. Hemoglobin 9, WBC 5.2, platelet count 232,000. Lactate 1.2. X-ray of the foot compared to 07/06/2017 shows some bone loss along the proximal metaphyseal region of the lateral fifth metatarsal shaft. Possible early osteomyelitis. Review of his previous MRI scan dated 07/08/2017 shows similar changes. IMPRESSION: A 72-year-old with peripheral vascular disease, nonhealing left transmetatarsal amputation site. Likely has component of osteomyelitis in this region due to the duration of the open wound. He has underlying diabetes and end-stage renal disease. RECOMMENDATIONS: Below-knee amputation would seem most appropriate here. Further discussion from primary care team will be undertaken. The patient will continue with Unasyn for coverage of the Acinetobacter. <ELECTRONICALLY SIGNED> By: Jason Carlin MD 07/19/17 1246 1155 1424 Jason Carlin MD /nt
--- NOTE | ~2017-07-17 | HC ---
[facility] [place] [address] CONSULTATION Name: AZALEA LOWERY Annemarie Room #: 452-P ADM IN M.R.#: [id number] Admission: 07/17/17 Attend Phys: Mack Cartwright MD Discharge: Date of : 47 Report #: [id number] THIS REPORT FOR: //name// CC: Mack Hayes REASON FOR CONSULTATION: Chronic nonhealing surgical wound of left foot transmetatarsal amputation stump. HISTORY OF PRESENT ILLNESS: The patient is a 72-year-old gentleman, very well known to us from [facility] and his previous hospitalization. The patient initially presented to the wound care clinic status post a transmetatarsal amputation, which had begun as toe amputation and then necessitation of transmetatarsal amputation in the setting of peripheral vascular disease and gangrene. The patient had previous arterial interventions. During the patient's previous hospitalization here, in addition to IV antibiotics and wound debridement, the patient underwent arterial intervention by Dr. Alcala to try to improve the arterial inflow to the extremity after previous procedures, which the patient had done. The patient's open wound of his transmetatarsal amputation stump had been problematic, initially presenting with dark black dry eschars, which then and were debrided. However, wounds were not showing evidence of healing and further arterial interventions were necessary. Wound Care Team and Orthopedic consultants have been talking with the patient about the threatened status of his limb. The patient had previously undergone approximately 40 hyperbaric oxygen therapy treatments in an attempt to achieve wound healing. The patient was readmitted at this time for nonhealing of his transmetatarsal amputation stump and may require further surgical interventions and understands that a threatened limb below-knee amputation could end up being necessary. PAST MEDICAL HISTORY: 1. End-stage renal disease, on hemodialysis. 2. Diabetes mellitus type 2. 3. Hypertension. 4. History of osteomyelitis of the left foot status post debridement. 5. Peripheral arterial disease of lower extremities with stenting of the left leg. 6. History of coronary artery disease. 7. History of ischemic cardiomyopathy. 8. History of renal failure with hemodialysis. ALLERGIES: SULFA WAS EARLIER RECORDED. MEDICATIONS: Amlodipine, Augmentin, oxycodone, carvedilol, Plavix, Neurontin, Pravachol, Cozaar, vitamin C, aspirin, zinc. PAST SURGICAL HISTORY: [address] [address] CONSULTATION Name: AZALEA LOWERY Annemarie Room #: 452-P [facility] IN [facility]#: [id number] Admission: 07/17/17 Attend Phys: Mack Cartwright MD Discharge: Date of : 47 Report #: [id number] 1. Toe amputation of the left foot followed by transmetatarsal amputation. 2. Left arm AV fistula. 3. Colon resection. 4. Angioplasty with stenting of the left leg. 5. Angiogram and angioplasty, left posterior tibial artery, 07/09/2017. REVIEW OF SYSTEMS: The patient has been relatively immobile. PHYSICAL EXAMINATION: GENERAL: Shows chronically ill-appearing gentleman, alert, healthy, pleasant. HEENT: Mucous membranes are moist. LUNGS: Respirations are unlabored. ABDOMEN: Soft, tender, nondistended. AV fistula on left arm. EXTREMITIES: Show transmetatarsal amputation of the left foot with two large open wounds of the distal stump, one medially, one laterally. Wounds have adipose tissue, which appears relatively healthy, but which is desiccated. There is adherent exudate and eschar. There is actually exposed bone in the medial open wound. Each wound measures approximately 4 x 2.5 cm. IMPRESSION: Nonhealing transmetatarsal amputation, left foot with severe peripheral vascular disease. Wound did not respond to 40 treatments of hyperbaric oxygen therapy. Recent revascularization has been done. PLAN: To keep the wounds from desiccating, we will use gentamicin 0.1% ointment topically twice a day, cover with Xeroform. Left below-knee amputation may be necessary. If there is a further attempt to salvage the limb or achieve healing of the amputation stump, then revisional surgery in the operating room would be needed due to exposed bone. Wound Care Team will follow. The patient is well known to us. <ELECTRONICALLY SIGNED> By: Cresencio Sharp MD 07/19/17 0759 1326 1550 Cresencio Sharp MD /nt
[~2017-07-17 15:06] MED LIST changes: -ARGININE MISCELL; -CARDIZEM CD120 MG PO; -CARVEDILOL12.5 MG PO; -COZAAR 50 MG TA50 M1 PO; -ENOXAPARIN30 MG/0.1 SUBQ; -GENTAMICIN 0.1%15 G2 TOP; -HEPARIN SO5000 UNIT/ SUBQ; -HYDROCODON-ACE1 EAC5 PO; -NORCO 10-325 T1 EACH PO; -NOVOLOG100 UNIT/1 SUBQ; -TYLENOL325 MG PO; -UNASYN 3 GM VIAL3 G1 IV; -VANCO 750750 MG/150 IV; -VANCOMYCIN125 MG/2.1 PO
[2017-07-17 16:13] VITALS: BP 162/78
[2017-07-17 18:14] LABS: ABSOLUTE NEUTROPHILS 4.5 thou/uL (1.4-8.2); BASOPHILS 1.2 % (0.0-2.0); EOSINOPHILS 1.3 % (0.0-3.0); HEMATOCRIT 29.1 % (42.0-52.0); HEMOGLOBIN 9.6 gm/dL (14.0-18.0); MCH 31.3 pg (26.0-34.0); MCHC 33.1 g/dL (28.0-37.0); MCV 94.7 fL (80.0-100.0); MONOCYTES 9.6 % (1.0-8.0); PLATELET COUNT 252 thou/uL (150-400); POLYS 68.9 % (36.0-66.0); RBC 3.07 mil/uL (4.50-6.00); RDW 16.7 % (10.5-14.5); WBC 6.5 thou/uL (4.0-11.0)
[2017-07-17 18:21] LABS: CALCIUM 8.7 mg/dL (8.5-10.1); CREATININE 9.6 mg/dL (0.7-1.3); POTASSIUM 4.3 mmol/L (3.5-5.1)
[2017-07-17 18:28] LABS: ALBUMIN 2.9 g/dL (3.4-5.0); TOTAL BILIRUBIN 0.7 mg/dL (<0.1-1.0); TOTAL PROTEIN 7.8 g/dL (6.4-8.2)
[2017-07-17 18:45] VITALS: BP 162/78
[2017-07-17 19:38] VITALS: BP 176/82
[2017-07-17 20:47] VITALS: BP 162/57
[2017-07-18 04:27] VITALS: BP 163/61
[2017-07-18 05:49] LABS: HEMATOCRIT 27.2 % (42.0-52.0); MCH 31.3 pg (26.0-34.0); MCV 94.9 fL (80.0-100.0); RBC 2.87 mil/uL (4.50-6.00); RDW 16.1 % (10.5-14.5); WBC 5.2 thou/uL (4.0-11.0)
[2017-07-18 06:05] LABS: ALBUMIN 2.4 g/dL (3.4-5.0); CALCIUM 8.7 mg/dL (8.5-10.1); CREATININE 10.5 mg/dL (0.7-1.3); PHOSPHORUS 5.4 mg/dL (2.5-4.9); POTASSIUM 3.9 mmol/L (3.5-5.1)
[2017-07-18 08:00] VITALS: BP 189/84
[2017-07-18 16:00] VITALS: BP 164/81
[2017-07-18 19:55] VITALS: BP 134/69
[2017-07-19 03:31] VITALS: BP 144/63
[2017-07-19 04:49] LABS: HEMATOCRIT 29.5 % (42.0-52.0); HEMOGLOBIN 9.7 gm/dL (14.0-18.0); MCH 31.5 pg (26.0-34.0); MCV 95.5 fL (80.0-100.0); RBC 3.08 mil/uL (4.50-6.00); RDW 16.6 % (10.5-14.5); WBC 5.1 thou/uL (4.0-11.0)
[2017-07-19 04:58] LABS: INR 1.2; PROTIME 12.4 Seconds (9.3-11.4)
[2017-07-19 08:39] VITALS: BP 150/85
[2017-07-19 16:16] VITALS: BP 126/65
[2017-07-19 20:00] VITALS: BP 115/62
[2017-07-20 03:57] VITALS: BP 153/83
[2017-07-20 06:26] LABS: CALCIUM 8.5 mg/dL (8.5-10.1); CREATININE 8.6 mg/dL (0.7-1.3); POTASSIUM 4.6 mmol/L (3.5-5.1)
[2017-07-20 08:00] VITALS: BP 156/72
[2017-07-20 15:27] VITALS: BP 130/67
[2017-07-20 20:31] VITALS: BP 149/65
[2017-07-21 05:26] VITALS: BP 156/60
[2017-07-21 06:05] LABS: ABSOLUTE NEUTROPHILS 3.7 thou/uL (1.4-8.2); BASOPHILS 0.8 % (0.0-2.0); EOSINOPHILS 2.4 % (0.0-3.0); HEMATOCRIT 25.7 % (42.0-52.0); HEMOGLOBIN 8.3 gm/dL (14.0-18.0); LYMPHOCYTES 22.8 % (24.0-44.0); MCH 31.7 pg (26.0-34.0); MCHC 32.4 g/dL (28.0-37.0); MCV 97.6 fL (80.0-100.0); MONOCYTES 8.3 % (1.0-8.0); PLATELET COUNT 219 thou/uL (150-400); POLYS 65.7 % (36.0-66.0); RBC 2.64 mil/uL (4.50-6.00); RDW 17.1 % (10.5-14.5); WBC 5.6 thou/uL (4.0-11.0)
[2017-07-21 06:17] LABS: CALCIUM 8.4 mg/dL (8.5-10.1); MAGNESIUM 2.3 mg/dL (1.8-2.4); POTASSIUM 4.7 mmol/L (3.5-5.1)
[2017-07-21 07:33] VITALS: BP 141/69
[2017-07-21 15:20] VITALS: BP 132/60
[2017-07-21 19:38] VITALS: BP 154/93
[2017-07-22 04:05] VITALS: BP 156/76
[2017-07-22 08:28] VITALS: BP 172/98
[2017-07-22] MEDS ORDERED: ENOXAPARIN30 MG/0.1 SUBQ (13:08)
[2017-07-22] MEDS ORDERED: NOVOLOG100 UNIT/1 SUBQ (13:08)
[2017-07-22] MEDS ORDERED: MIRALAX17 GM PO (13:08)
[2017-07-22] MEDS ORDERED: UNASYN 3 GM VIAL3 G1 IV (13:08)
[2017-07-22 15:50] VITALS: BP 160/83
[2017-07-22 19:54] VITALS: BP 158/81
[2017-07-23 04:31] VITALS: BP 148/49
[2017-07-23 08:27] VITALS: BP 151/94
[2017-07-23 15:55] VITALS: BP 173/90
== END 2017-07-23 17:19 | DRG 299 ==
LOC: ER 15:06 → EROBS 17:03 → 4W 17:03 → 3W 18:45 → 4W 18:53
PROVIDERS: Hospitalist; Internal Medicine; Nurse Practitioner Family
PROC: 5A1D70Z Performance of Urinary Filtration, Intermittent, Less than 6 Hours Per Day (ICD-10-PCS; principal; 2017-07-18)
PROC: 5A1D70Z Performance of Urinary Filtration, Intermittent, Less than 6 Hours Per Day (ICD-10-PCS; 2017-07-19)
PROC: 0HBRXZZ Excision of Toe Nail, External Approach (ICD-10-PCS; 2017-07-20)
PROC: 5A1D70Z Performance of Urinary Filtration, Intermittent, Less than 6 Hours Per Day (ICD-10-PCS; 2017-07-20)
PROC: 5A1D70Z Performance of Urinary Filtration, Intermittent, Less than 6 Hours Per Day (ICD-10-PCS; 2017-07-21)
PROC: 02HV33Z Insertion of Infusion Device into Superior Vena Cava, Percutaneous Approach (ICD-10-PCS; 2017-07-23)
DX: E11.52 Type 2 diabetes mellitus with diabetic peripheral angiopathy with gangrene (principal); N18.6 End stage renal disease; M86.9 Osteomyelitis, unspecified; I96 Gangrene, not elsewhere classified; E11.69 Type 2 diabetes mellitus with other specified complication; I12.9 Hypertensive chronic kidney disease with stage 1 through stage 4 chronic kidney disease, or unspecified chronic kidney disease; E11.22 Type 2 diabetes mellitus with diabetic chronic kidney disease; I25.5 Ischemic cardiomyopathy; B35.1 Tinea unguium; E11.40 Type 2 diabetes mellitus with diabetic neuropathy, unspecified; Z95.5 Presence of coronary angioplasty implant and graft; I25.2 Old myocardial infarction; Z88.2 Allergy status to sulfonamides; Z89.429 Acquired absence of other toe(s), unspecified side; Z87.891 Personal history of nicotine dependence; Z83.3 Family history of diabetes mellitus; Z82.49 Family history of ischemic heart disease and other diseases of the circulatory system
CPT/HCPCS: 10040; 32100

== ENCOUNTER 2017-08-10 12:57 | Emergency (ER) | payer OTHER ==
[~2017-08-10] VITALS: Ht 175.3 cm; Wt 83.9 kg
[~2017-08-10 12:57] MED LIST changes: +ARGININE MISCELL; +CARDIZEM CD120 MG PO; +ENOXAPARIN30 MG/0.1 SUBQ; +HEPARIN SO5000 UNIT/ SUBQ; +NOVOLOG100 UNIT/1 SUBQ; +TYLENOL325 MG PO; +UNASYN 3 GM VIAL3 G1 IV; +VANCO 750750 MG/150 IV
[2017-08-10 14:16] LABS: CALCIUM 9.2 mg/dL (8.5-10.1); CREATININE 11.3 mg/dL (0.7-1.3); POTASSIUM 5.1 mmol/L (3.5-5.1)
== END 2017-08-10 15:10 | disposition home or self-care (01) ==
LOC: ER 12:57
PROVIDERS: Emergency Medicine
DX: I12.0 Hypertensive chronic kidney disease with stage 5 chronic kidney disease or end stage renal disease (principal); N18.6 End stage renal disease; E11.22 Type 2 diabetes mellitus with diabetic chronic kidney disease; I25.5 Ischemic cardiomyopathy; I21.4 Non-ST elevation (NSTEMI) myocardial infarction; F17.210 Nicotine dependence, cigarettes, uncomplicated; Z99.2 Dependence on renal dialysis

== ENCOUNTER → 2017-08-13 | Outpatient (CLI) | payer OTHER ==
[2017-08-13 11:42] VITALS: BP 172/86
== END ==
LOC: SEN 07:41
DX: M86.672 Other chronic osteomyelitis, left ankle and foot (principal); I10 Essential (primary) hypertension; E11.9 Type 2 diabetes mellitus without complications

== ENCOUNTER → 2017-08-20 | Outpatient (CLI) | payer OTHER | LOC: HYPER 08-06 09:24 | DX: T81.31XD Disruption of external operation (surgical) wound, not elsewhere classified, subsequent encounter (principal); I70.235 Atherosclerosis of native arteries of right leg with ulceration of other part of foot; E11.621 Type 2 diabetes mellitus with foot ulcer; L97.511 Non-pressure chronic ulcer of other part of right foot limited to breakdown of skin; E11.69 Type 2 diabetes mellitus with other specified complication; M86.672 Other chronic osteomyelitis, left ankle and foot; I48.92 Unspecified atrial flutter; M62.81 Muscle weakness (generalized); F32.9 Major depressive disorder, single episode, unspecified; K21.9 Gastro-esophageal reflux disease without esophagitis; E11.52 Type 2 diabetes mellitus with diabetic peripheral angiopathy with gangrene; I96 Gangrene, not elsewhere classified; E11.42 Type 2 diabetes mellitus with diabetic polyneuropathy; I21.4 Non-ST elevation (NSTEMI) myocardial infarction; E11.22 Type 2 diabetes mellitus with diabetic chronic kidney disease; I12.0 Hypertensive chronic kidney disease with stage 5 chronic kidney disease or end stage renal disease; N18.6 End stage renal disease; Z87.891 Personal history of nicotine dependence; Z89.432 Acquired absence of left foot; Z89.022 Acquired absence of left finger(s); Z99.2 Dependence on renal dialysis; Y83.8 Other surgical procedures as the cause of abnormal reaction of the patient, or of later complication, without mention of misadventure at the time of the procedure ==

== ENCOUNTER 2017-09-08 11:30 | Emergency (ER) | payer OTHER ==
[~2017-09-08] VITALS: Ht 175.3 cm; Wt 81.7 kg
--- NOTE | ~2017-09-08 | EKG ---
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: [facility] : 1945 Requested By: Jason Dutton Order Number: [id number] MD: Gwyn Xiong Measurements Intervals Dexter Rate: 80 P: TN: QRS: -10 QRSD: 105 T: 91 QT: 431 QTc: 498 Interpretive Statements Atrial flutter with predominant 3:1 AV block LVH with secondary repolarization abnormality Nonspecific ST segment abnormality Borderline prolonged QT interval Compared to ECG 07/06/2017 18:10:10 No significant change was found Electronically Signed On 09-08-2017 16:52:34 CDT by Gwyn Xiong [email or web address] <ELECTRONICALLY SIGNED> By: Gwyn Xiong MD, [facility] 09/08/17 1652 1415 1415 Gwyn Xiong MD, [facility] /EPI
[2017-09-08 13:44] LABS: ABSOLUTE NEUTROPHILS 3.4 thou/uL (1.4-8.2); BASOPHILS 0.7 % (0.0-2.0); EOSINOPHILS 1.4 % (0.0-3.0); HEMATOCRIT 24.9 % (42.0-52.0); HEMOGLOBIN 8.2 gm/dL (14.0-18.0); LYMPHOCYTES 20.7 % (24.0-44.0); MCH 31.8 pg (26.0-34.0); MCHC 32.9 g/dL (28.0-37.0); MCV 96.7 fL (80.0-100.0); MONOCYTES 4.9 % (1.0-8.0); PLATELET COUNT 218 thou/uL (150-400); POLYS 72.3 % (36.0-66.0); RBC 2.58 mil/uL (4.50-6.00); RDW 18.8 % (10.5-14.5); WBC 4.7 thou/uL (4.0-11.0)
[2017-09-08 14:22] LABS: CALCIUM 8.4 mg/dL (8.5-10.1); POTASSIUM 4.2 mmol/L (3.5-5.1)
[2017-09-08 14:31] LABS: ALBUMIN 2.7 g/dL (3.4-5.0); MAGNESIUM 2.2 mg/dL (1.8-2.4); TOTAL PROTEIN 7.5 g/dL (6.4-8.2); TROPONIN-I 0.08 ng/mL (<0.06)
== END 2017-09-08 14:51 | disposition home or self-care (01) ==
LOC: ER 11:30
PROVIDERS: Emergency Medicine
DX: R05 Cough (principal); I25.82 Chronic total occlusion of coronary artery; D53.9 Nutritional anemia, unspecified; M86.172 Other acute osteomyelitis, left ankle and foot; I12.0 Hypertensive chronic kidney disease with stage 5 chronic kidney disease or end stage renal disease; E11.22 Type 2 diabetes mellitus with diabetic chronic kidney disease; N18.6 End stage renal disease; Z99.2 Dependence on renal dialysis; Z98.62 Peripheral vascular angioplasty status

== ENCOUNTER → 2017-09-10 | Outpatient (CLI) | payer OTHER | LOC: HYPER | DX: T86.828 Other complications of skin graft (allograft) (autograft) (principal); E11.69 Type 2 diabetes mellitus with other specified complication; M86.672 Other chronic osteomyelitis, left ankle and foot; E11.51 Type 2 diabetes mellitus with diabetic peripheral angiopathy without gangrene; I48.92 Unspecified atrial flutter; E11.22 Type 2 diabetes mellitus with diabetic chronic kidney disease; I12.0 Hypertensive chronic kidney disease with stage 5 chronic kidney disease or end stage renal disease; N18.6 End stage renal disease; Z99.2 Dependence on renal dialysis; M62.81 Muscle weakness (generalized); F17.210 Nicotine dependence, cigarettes, uncomplicated; R26.81 Unsteadiness on feet; I25.10 Atherosclerotic heart disease of native coronary artery without angina pectoris; F32.9 Major depressive disorder, single episode, unspecified; K21.9 Gastro-esophageal reflux disease without esophagitis; E11.52 Type 2 diabetes mellitus with diabetic peripheral angiopathy with gangrene; E11.42 Type 2 diabetes mellitus with diabetic polyneuropathy; Z89.432 Acquired absence of left foot; Z87.891 Personal history of nicotine dependence; Y83.2 Surgical operation with anastomosis, bypass or graft as the cause of abnormal reaction of the patient, or of later complication, without mention of misadventure at the time of the procedure ==

== ENCOUNTER → 2017-10-23 | Outpatient (CLI) | payer OTHER | LOC: HYPER 07:04 | DX: T87.81 Dehiscence of amputation stump (principal); I70.235 Atherosclerosis of native arteries of right leg with ulceration of other part of foot; L97.511 Non-pressure chronic ulcer of other part of right foot limited to breakdown of skin; E11.621 Type 2 diabetes mellitus with foot ulcer; E11.69 Type 2 diabetes mellitus with other specified complication; M86.672 Other chronic osteomyelitis, left ankle and foot; E11.22 Type 2 diabetes mellitus with diabetic chronic kidney disease; I12.9 Hypertensive chronic kidney disease with stage 1 through stage 4 chronic kidney disease, or unspecified chronic kidney disease; N18.6 End stage renal disease; E11.42 Type 2 diabetes mellitus with diabetic polyneuropathy; E11.51 Type 2 diabetes mellitus with diabetic peripheral angiopathy without gangrene; E78.4 Other hyperlipidemia; I48.92 Unspecified atrial flutter; I25.2 Old myocardial infarction; I25.10 Atherosclerotic heart disease of native coronary artery without angina pectoris; K21.9 Gastro-esophageal reflux disease without esophagitis; F17.210 Nicotine dependence, cigarettes, uncomplicated; F41.9 Anxiety disorder, unspecified; Z99.2 Dependence on renal dialysis; Z89.422 Acquired absence of other left toe(s); Z89.022 Acquired absence of left finger(s); Y83.5 Amputation of limb(s) as the cause of abnormal reaction of the patient, or of later complication, without mention of misadventure at the time of the procedure ==

== ENCOUNTER → 2017-11-02 | Outpatient (CLI) | payer OTHER | LOC: HYPER 07:13 | DX: T87.81 Dehiscence of amputation stump (principal); I70.235 Atherosclerosis of native arteries of right leg with ulceration of other part of foot; L97.513 Non-pressure chronic ulcer of other part of right foot with necrosis of muscle; E11.69 Type 2 diabetes mellitus with other specified complication; M86.672 Other chronic osteomyelitis, left ankle and foot; E11.22 Type 2 diabetes mellitus with diabetic chronic kidney disease; I12.9 Hypertensive chronic kidney disease with stage 1 through stage 4 chronic kidney disease, or unspecified chronic kidney disease; N18.6 End stage renal disease; E11.52 Type 2 diabetes mellitus with diabetic peripheral angiopathy with gangrene; I96 Gangrene, not elsewhere classified; E11.42 Type 2 diabetes mellitus with diabetic polyneuropathy; I48.92 Unspecified atrial flutter; E78.4 Other hyperlipidemia; I25.10 Atherosclerotic heart disease of native coronary artery without angina pectoris; I25.2 Old myocardial infarction; K21.9 Gastro-esophageal reflux disease without esophagitis; F17.210 Nicotine dependence, cigarettes, uncomplicated; F41.9 Anxiety disorder, unspecified; F32.9 Major depressive disorder, single episode, unspecified; Z89.432 Acquired absence of left foot; Z99.2 Dependence on renal dialysis; Y83.5 Amputation of limb(s) as the cause of abnormal reaction of the patient, or of later complication, without mention of misadventure at the time of the procedure ==

== ENCOUNTER 2017-12-07 07:14 | Inpatient (IN) | payer OTHER ==
[~2017-12-07] VITALS: Ht 175.3 cm; Wt 83.3 kg
--- NOTE | ~2017-12-07 | O ---
[facility] [place] [address] OPERATIVE REPORT Name: AZALEA LOWERY Room #: 420-P ADM IN M.R.#: [id number] Admission: 12/07/17 Attend Phys: Manolo Thapa MD Discharge: Date of : 47 Report #: [id number] THIS REPORT FOR: //name// CC: Peter Hernandezfrantz Chad DATE OF SERVICE: 12/09/2017 SERVICE: Orthopedics. FACILITY: [facility] SURGEON: Mayito Draper MD SOLID PLASTERER: Sherly Rosales NP PREOPERATIVE DIAGNOSES: 1. Diabetic nonhealing foot wound, left foot. 2. Necrotic right third toe and right fourth toe with osteomyelitis. 3. Dysvascular bilateral lower extremities. 4. Status post left foot transmetatarsal amputation. 5. Status post right partial third toe amputation. 6. Uncontrolled diabetes mellitus. 7. End-stage renal disease, on hemodialysis. POSTOPERATIVE DIAGNOSES: 1. Diabetic nonhealing foot wound, left foot. 2. Necrotic right third toe and right fourth toe with osteomyelitis. 3. Dysvascular bilateral lower extremities. 4. Status post left foot transmetatarsal amputation. 5. Status post right partial third toe amputation. 6. Uncontrolled diabetes mellitus. 7. End-stage renal disease, on hemodialysis. PROCEDURES: 1. Left foot debridement to bone with exostectomy. 2. Right third and fourth toe amputations. ANESTHESIA: General. COMPLICATIONS: None. DRAINS: None. SPECIMENS: Right toes, which were sent for pathology. [facility] [place] [address] OPERATIVE REPORT Name: AZALEA LOWERY Annemarie Room #: 420-P [facility] IN M.R.#: [id number] Admission: 12/07/17 Attend Phys: Manolo Thapa MD Discharge: Date of : 47 Report #: [id number] HISTORY: The patient is a 72-year-old gentleman, with a longstanding history of diabetes, on hemodialysis for end-stage renal disease who has been having bilateral lower extremity wounds treated secondary to dysvascular limbs and diabetic foot wound. These have been managed by multiple providers. He presented to [facility] for direct admission from clinic after presenting to the wound care clinic with exposed bone on his left foot and right foot via the right third toe. He has, on previous occasions, had more radical procedures recommended to him by other surgeons, but he and his family have declined amputations whenever these have been previously presented other than those amputations that he has previously had. A right third toe partial amputation was performed in the wound care clinic with regular debridement and complex wound care that he was undergoing for an extended period of time. The orthopedics team at [facility] was consulted on Thursday of this week, and we had a total of 5 [id number] conversations with him and his family in preparation for today's surgery in order to clearly establish his desires as well as his daughter's desires for surgical management. He initially requested only debridement of the exposed bone on the left dorsal mid foot and the right third toe, but we openly discussed the necrosis that was present on the fourth toe and I made my professional recommendation that at the very least, he undergo third and fourth toe amputations on the right foot. The patient and family understood the reasoning behind this and eventually requested this approach to the right foot. In regards to the left foot, they have been happy with the progressive healing of the wound that has been occurring under the care of the wound care team here at the hospital and their feeling was that resection of the exposed bone may be sufficient to allow final granulation closure of the wound with wound care alone without further amputation. I also discussed this on multiple occasions preoperatively with Dr. Thapa from the wound care team in order to establish a comprehensive multidisciplinary plan in order to maximize the chance that this is an effective single procedure and to stay within the wishes of the patient and his daughter. They understand that there is a risk of possible need for bilateral below-knee amputations at any point in the future as a result of the severity of his underlying disease status. DESCRIPTION OF PROCEDURE: After bilateral lower extremities were correctly identified in the preoperative holding area as the operative extremity, the patient was taken to the operating room and general anesthesia was induced without complication. He was padded appropriately. He has not received prophylactic antibiotics as he is being treated on a regimen currently . Tourniquet was not utilized during the procedure. Bilateral lower extremities [address] [address] OPERATIVE REPORT Name: BEVERLEYAZALEA L Room #: 420-P [facility] IN M.R.#: [id number] Admission: 12/07/17 Attend Phys: Manolo Thapa MD Discharge: Date of : 47 Report #: [id number] were prepped and draped in standard sterile fashion. Timeout procedure was performed. The left foot was addressed first. The exostectomy, which was from the first ray and was present on the dorsal side of the foot was exposed protruding from the wound was visualized and it was dissected bluntly to free up the soft tissues around the exposed bone. Circumferential soft tissue mobilization was achieved with the Vaughn elevator and then, a rongeur was used to debride the bone back beneath the level of the soft tissues to healthy appearing bleeding bone. Some local soft tissue debridement was required as well deep in the wound, but no skin and no subcutaneous tissue was resected as this remains healthy and was in fact bleeding during the procedure. This was also in line with specific request of the patient. This wound was then thoroughly irrigated and it was packed with Dakin's soaked gauze. Attention was then turned towards the right foot where the third and fourth toe amputations performed. A circumferential incision was made incorporating both third and fourth toes leaving a plantar soft tissue flap present just at the level of the proximal phalanges as this was healthy appearing tissue and did in fact bleed adequately at the time of the incision and dissection. The dorsal incision was taken more proximally as the skin necrosis extended more proximally on this side of the foot. All necrotic tissue was excised and the skin was bleeding dorsally as well and then resected the exposed metatarsal heads to complete the toe amputation and ensure that the fresh bleeding cancellous bone was positioned at appropriate level relative to the soft tissue component of the incision and amputation. Once again, this wound was copiously irrigated. The residual portion of the foot was no longer foul smelling and it did appear that all of the infected tissue was adequately resected with the toe amputation procedure. After irrigation was completed, #1 PDS suture was used for a single [id number] suture with a buried knot to draw the plantar soft tissues over the top of the end of the third and fourth metatarsals to the dorsal tissues. This provided good approximation of the deep soft tissues and will hopefully position the foot optimally for wound care management, which was per both discussion with the family and with the wound care team. This wound was also packed with Dakin's soaked gauze and both feet were wrapped. The patient was awakened from anesthesia and taken to recovery room in stable condition. There were no complications and all counts were reported as correct. <ELECTRONICALLY SIGNED> By: Mayito Draper MD 12/11/17 0713 2048 2227 Mayito Draper MD /nt
--- NOTE | ~2017-12-07 | HC ---
[facility] [place] [address] CONSULTATION Name: AZALEA LOWERY Room #: 430-P ADM IN M.R.#: [id number] Admission: 12/07/17 Attend Phys: Manolo Thapa MD Discharge: Date of : 47 Report #: [id number] THIS REPORT FOR: //name// CC: Peter Bonilla DATE OF SERVICE: 12/07/2017 NEPHROLOGY CONSULTATION REASON FOR CONSULTATION: End-stage renal disease, requiring chronic hemodialysis. HISTORY OF PRESENT ILLNESS: This is a 72-year-old male who was admitted for wounds on his feet with exposed bone, chronic osteomyelitis and numerous prior procedures. The plan is to do some additional bone debridement of his feet. From a dialysis standpoint, the patient has long-standing end-stage renal disease. He has been a chronic hemodialysis patient since about 2010, with hypertension and diabetes as being the etiology of his end-stage renal disease. He currently dialyzes using a left upper arm fistula. He has been dialyzing on a Thursday, Thursday and Thursday basis at the [facility] in [place] and he last dialyzed on 12/04/2017. He states he dialyzes 4 hours, usually has about 3 liters of ultrafiltration. No recent complications from his dialysis. PAST MEDICAL HISTORY: End-stage renal disease, as noted above; long-standing diabetes; hypertension and peripheral vascular disease. Previous myocardial infarction with coronary artery disease. Also, numerous amputations of his feet. He is also missing a left middle finger, at least distal 2 phalanges. He has had a transmetatarsal amputation on the left foot and also some toe amputations on the right. He has had a previous history of colon resection. MEDICATIONS: Include the initiation of vancomycin and Zosyn for antibiotics. It looks like he is on calcium acetate as a phosphate binder, gabapentin 600 mg daily, Plavix 75 mg daily, pravastatin 20 mg daily, losartan 50 mg daily and aspirin 81 mg daily. ALLERGIES: No known medical allergies. SOCIAL HISTORY: The patient is , lives in [place], [place]. He is retired. He has a daughter here with him at this time. REVIEW OF SYSTEMS: He states he has been eating okay. Denies nausea or vomiting. He had some recent cough, but that cleared. Denies dyspnea, chest pain or palpitations. Again, no recent problems with dialysis. He reports he [facility] [address] [place] [address] CONSULTATION Name: AZALEA LOWERY Room #: 430-P [facility] IN [facility].#: [id number] Admission: 12/07/17 Attend Phys: Manolo Thapa MD Discharge: Date of : 47 Report #: [id number] has not had much in the way of edema. Unaware of fevers, chills or sweats. PHYSICAL EXAMINATION: GENERAL: A 72-year-old male, awake, alert and responsive at this time. VITAL SIGNS: Blood pressure 145/68, heart rate is 68, temperature 98.0 degrees Fahrenheit and oxygen saturation 99%. HEENT EXAMINATION: Shows pupils are equal and reactive. Sclerae nonicteric. Oral mucosa is moist. NECK: Neck veins are not distended. No bruit. No adenopathy. CHEST: Fairly clear bilaterally. HEART: Regular rate and rhythm. No gallop or rub. ABDOMEN: Active bowel sounds. It is soft and nontender at this time. No organomegaly or masses. EXTREMITIES: Show both feet are freshly wrapped and I did not unwrap them. He has 1+ lower extremity edema. He has a massive left upper arm brachiocephalic fistula in place with active flow. LABORATORY DATA: Sodium 134, potassium 4.2, chloride 97, bicarbonate 27, BUN 68, creatinine 9.0 and calcium 9.3. AST 17, ALT 13, total protein 8.2. Albumin 2.4. White count 5.1, hemoglobin 11.2, hematocrit 33.9 and platelets 182,000. ASSESSMENT: 1. End-stage renal disease. Unfortunately, with him coming into the hospital, he has missed dialysis today. Fortunately, his volume is okay and his potassium is not dramatically high. We will plan on dialysis first thing tomorrow morning. 2. Lower extremity wounds with long-standing diabetic ulcers, partial amputations previously, now with exposed bone, to have more debridement done. 3. Hypertension, fairly well controlled. 4. Coronary artery disease, prior stent and myocardial infarction. 5. Long-standing diabetes. 6. Anemia of end-stage renal disease. We will follow that, probably chronically on erythropoietin. PLAN: 1. Dialysis tomorrow; orders are put in. 2. We will follow along in his care and make sure he is on adequate medications. Watch his blood counts continue with his dialysis. By: 1814 05 Sid Kunz MD /nt
--- NOTE | ~2017-12-07 | PATH ---
[facility] [address] [place] [address] PATHOLOGY RPT PROCEDURE Name: AZALEA LOWERY Annemarie Room #: 420-P DIS IN M.R.#: [id number] Admission: 12/07/17 Date of : 49 Discharge: 12/13/17 Report #: [id number] Path Case #: [id number] LCA Accession Number: [id number] . 01 Material submitted: . RIGHT 4TH TOE AND 1/2 OF 3RD TOE . 01 Clinical history: . Wound infection . 02 Diagnosis: Toes, right fourth toe and half of third toe, amputation: - Ulceration along with gangrenous necrosis and marked acute inflammation extending into subcutaneous tissues involving the toes. - Acute inflammation extends into underlying bone, compatible with focal acute osteomyelitis. - Bone margin as well as separate fragment of bone showing unremarkable viable tissue. (IUV:deana; 12/11/2017) QMS/12/11/2017 . 02 Electronically signed: . Jessenia Tamayo MD, Pathologist NPI- [id number] . 01 Gross description: . Received in formalin labeled "Azalea Lowery, right 4th toe and 1/2 of 3rd toe," is a multiple digit amputation specimen measuring 5.7 x 2.7 x 2.5 cm in greatest dimensions and consisting of two toes, the longer (lateral) measuring 5.8 cm proximal-distal and the shorter (medial) measuring 3.3 cm proximal-distal. The toes are received joined at the proximal aspect-they are , with the new margin inked red. . The shorter toe displays a bone margin that is smooth and concave in appearance, consistent with disarticulation. The nail is absent, and the entire distal aspect is granular, ulcerative and yellow-ontiveros in appearance. The distal aspect ulceration grossly appears to abut the soft tissue margin at the medial aspect. The bone and soft tissue margins are inked black. A full-thickness cross section is submitted proximal to distal in cassettes A1 and A2, following decalcification. Additional soft tissue sections are submitted in cassette A3, to include the distal aspect ulcerative lesion. . The longer toe displays a jagged bone margin. A nail is present in the nailbed that is thickened, granular and yellow-ontiveros in appearance. The nailbed is surrounded by flaky, granular and ontiveros-brown skin. The dorsal aspect epidermal surface displays an area of granular, brown-black [address] [address] PATHOLOGY RPT PROCEDURE Name: AZALEA LOWERY Room #: 420-P DIS IN M.R.#: [id number] Admission: 12/07/17 Date of : 49 Discharge: 12/13/17 Report #: [id number] Path Case #: [id number] necrotic-appearing skin measuring 2.8 x 1.5 cm that extends distally to the nailbed and proximally to within 1.1 cm of the nearest soft tissue margin. The bone and soft tissue margins are inked blue. A full-thickness cross-section is submitted proximal to distal in cassettes A4 through A6, following decalcification. Additional soft tissue sections are submitted in cassette A7, to include the dorsal aspect necrotic-appearing skin and its closest relation to the soft tissue margin. . Also received within the specimen container is a segment of bone measuring 1.6 x 1.0 x 0.8 cm in greatest dimensions. One bone margin is smooth and convex in appearance, consistent with disarticulation. The opposite bone margin is jagged in appearance; this margin is inked yellow. This segment is trisected and submitted entirely in cassette A8, following decalcification. (DAC; 12/10/2017) XDC/XDC . 02 Pathologist provided ICD-10: M86.171, L97.519, I96 . 02 CPT . 527927, 571723 Specimen Comment: A courtesy copy of this report has been sent to Specimen Comment: [phone], , . Specimen Comment: Report sent to , and Performed at: [address], [place] [id number] MD Aristides Rene MD Phone: [phone] Performed at: [address] [id number] MD Jessenia Tamayo MD Phone: [phone]
--- NOTE | ~2017-12-07 | HC ---
[facility] [place] [address] CONSULTATION Name: AZALEA LOWERY Annemarie Room #: 430-P ADM IN M.R.#: [id number] Admission: 12/07/17 Attend Phys: Manolo Thapa MD Discharge: Date of : 49 Report #: [id number] THIS REPORT FOR: //name// CC: Peter Bonilla DATE OF SERVICE: 12/07/2017 HISTORY OF PRESENT ILLNESS: A 72-year-old black man [facility], is admitted to the hospital for some debridement of right foot amputated toe. The patient apparently had the toe amputated with history of necrosis, but now, he is admitted for further intervention to the wound. PAST MEDICAL HISTORY: 1. End-stage renal disease, on hemodialysis through a left arm AV fistula. 2. History of left foot transmetatarsal amputation with exposed first metatarsal - chronic osteomyelitis. 3. 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 4. Peripheral vascular disease, status post stenting of right lower extremity and necrotic right third toe, status post amputation 5. Anemia of chronic disease. 6. Malnutrition. DRUG ALLERGIES: None listed. MEDICATIONS: The patient is currently on insulin lispro per sliding scale, p.r.n. glucose, glucagon, polyethylene glycol and sublingual nitroglycerin p.r.n., ondansetron IV p.r.n. SOCIAL HISTORY: See H and P, old records. FAMILY HISTORY: See H and P, old records. REVIEW OF SYSTEMS: The patient denies being in pain. He is dialyzed Thursday, Wednesdays, and Fridays, expecting to be dialyzed today. PHYSICAL EXAMINATION: GENERAL: Chronically ill-appearing man, not septic looking. VITAL SIGNS: Temperature afebrile, vital signs stable. HEENMT: Head normocephalic, atraumatic. Pupils reactive. Mouth with missing teeth and periodontal disease. NECK: Supple, no thyromegaly. LUNGS: Clear. HEART: S1, S2. No gallop or murmur. [facility] [address] [place] [address] CONSULTATION Name: AZALEA LOWERY Annemarie Room #: 430-P [facility] IN ..#: [id number] Admission: 12/07/17 Attend Phys: Manolo Thapa MD Discharge: Date of : 49 Report #: [id number] ABDOMEN: Soft, no masses or megaly. EXTREMITIES: Left arm AV fistula with aneurysmatic dilatation of vessels. The right foot show an open wound on the right third toe amputation site with exposed bone and reported to be foul smelling when examined by Dr. Thapa earlier today. The left foot transmetatarsal amputation actually is looking better, but there is an exposed first metatarsal that possibly could be trimmed back. ASSESSMENT: 1. Bilateral feet wounds with exposed bone - osteomyelitis. 2. History of methicillin resistant Staphylococcus aureus, multiple drug resistant acinetobacter infection. 3. Peripheral vascular disease. 4. Diabetes mellitus. 5. End-stage renal disease, on chronic hemodialysis. SUGGESTIONS: Proceed with amputation per orthopedic surgeon, coverage with Unasyn and vancomycin. Vancomycin to be dosed by pharmacy. Dr. Thapa, thank you for requesting my suggestion. <ELECTRONICALLY SIGNED> By: Ian Randall MD 12/08/17 1106 1452 1943 Ian Randall MD /nt
--- NOTE | ~2017-12-07 | EKG ---
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: Jamel SOTO : 1945 Requested By: Mayito Draper Order Number: [id number] MD: Phillip Randall Measurements Intervals [place] Rate: 68 P: [place]: QRS: -14 QRSD: 164 T: -2 QT: 455 QTc: 484 Interpretive Statements Atrial fibrillation Probable left ventricular hypertrophy Compared to ECG 09/08/2017 14:15:53 Early repolarization no longer present ST (T wave) deviation no longer present Electronically Signed On 12-09-2017 13:14:46 CDT by Phillip Randall [email or web address] <ELECTRONICALLY SIGNED> By: Phillip Randall MD 12/09/17 1314 10 10 Phillip Randall MD /EPI
[2017-12-07 13:34] LABS: ABSOLUTE NEUTROPHILS 3.7 thou/uL (1.4-8.2); BASOPHILS 0.8 % (0.0-2.0); EOSINOPHILS 2.1 % (0.0-3.0); HEMATOCRIT 33.9 % (42.0-52.0); HEMOGLOBIN 11.2 gm/dL (14.0-18.0); LYMPHOCYTES 14.8 % (24.0-44.0); MCH 32.6 pg (26.0-34.0); MCHC 33.1 g/dL (28.0-37.0); MCV 98.5 fL (80.0-100.0); MONOCYTES 9.7 % (1.0-8.0); PLATELET COUNT 182 thou/uL (150-400); POLYS 72.6 % (36.0-66.0); RBC 3.45 mil/uL (4.50-6.00); RDW 18.7 % (10.5-14.5); WBC 5.1 thou/uL (4.0-11.0)
[2017-12-07 13:38] VITALS: BP 145/68
[2017-12-07 13:46] LABS: ALBUMIN 2.4 g/dL (3.4-5.0); CALCIUM 9.3 mg/dL (8.5-10.1); MAGNESIUM 2.4 mg/dL (1.8-2.4); POTASSIUM 4.2 mmol/L (3.5-5.1); TOTAL BILIRUBIN 1.3 mg/dL (<0.1-1.0); TOTAL PROTEIN 8.2 g/dL (6.4-8.2)
[2017-12-07 15:10] VITALS: BP 163/72
[2017-12-07 21:17] VITALS: BP 150/66
[2017-12-08 03:36] VITALS: BP 156/70
[2017-12-08 06:15] LABS: ABSOLUTE NEUTROPHILS 3.1 thou/uL (1.4-8.2); BASOPHILS 0.7 % (0.0-2.0); EOSINOPHILS 2.3 % (0.0-3.0); HEMATOCRIT 31.1 % (42.0-52.0); HEMOGLOBIN 10.4 gm/dL (14.0-18.0); LYMPHOCYTES 19.3 % (24.0-44.0); MCH 32.9 pg (26.0-34.0); MCHC 33.3 g/dL (28.0-37.0); MCV 98.7 fL (80.0-100.0); MONOCYTES 10.7 % (1.0-8.0); PLATELET COUNT 166 thou/uL (150-400); RBC 3.15 mil/uL (4.50-6.00); RDW 18.9 % (10.5-14.5); WBC 4.6 thou/uL (4.0-11.0)
[2017-12-08 06:25] LABS: CALCIUM 8.6 mg/dL (8.5-10.1); CREATININE 9.7 mg/dL (0.7-1.3); MAGNESIUM 2.2 mg/dL (1.8-2.4); POTASSIUM 4.4 mmol/L (3.5-5.1)
[2017-12-08 16:10] VITALS: BP 153/93
[2017-12-08 20:00] VITALS: BP 186/72
[2017-12-09 05:40] VITALS: BP 153/66
[2017-12-09 07:18] VITALS: BP 167/90
[2017-12-09 16:31] VITALS: BP 155/82
[2017-12-09 16:33] VITALS: BP 163/83
[2017-12-09 20:30] VITALS: BP 153/78
[2017-12-10 05:21] LABS: ABSOLUTE NEUTROPHILS 4.9 thou/uL (1.4-8.2); BASOPHILS 0.3 % (0.0-2.0); EOSINOPHILS 1.2 % (0.0-3.0); HEMATOCRIT 33.5 % (42.0-52.0); HEMOGLOBIN 10.6 gm/dL (14.0-18.0); MCH 31.7 pg (26.0-34.0); MCHC 31.7 g/dL (28.0-37.0); MONOCYTES 8.5 % (1.0-8.0); PLATELET COUNT 160 thou/uL (150-400); RBC 3.35 mil/uL (4.50-6.00); RDW 19.2 % (10.5-14.5); WBC 6.2 thou/uL (4.0-11.0)
[2017-12-10 05:37] LABS: CALCIUM 9.1 mg/dL (8.5-10.1); POTASSIUM 4.7 mmol/L (3.5-5.1)
[2017-12-10 05:42] LABS: CREATININE 7.5 mg/dL (0.7-1.3)
[2017-12-10 05:48] VITALS: BP 142/90
[2017-12-10 20:16] VITALS: BP 162/67
[2017-12-11 07:00] VITALS: BP 164/87
[2017-12-11 19:44] VITALS: BP 151/103
[2017-12-12 04:52] VITALS: BP 156/90
[2017-12-12 07:27] VITALS: BP 148/87
[2017-12-12 22:00] VITALS: BP 165/93
[2017-12-13 05:29] VITALS: BP 136/102
[2017-12-13] MEDS ORDERED: VANCO 750750 MG/150 IV (09:39)
[2017-12-13 13:15] VITALS: BP 136/102
[2017-12-13] MEDS ORDERED: NORCO 10-325 T1 EACH PO (15:16)
== END 2017-12-13 15:48 | disposition home or self-care (01) | DRG 853 ==
LOC: HYPER 07:14 → 4E 11:45
PROVIDERS: Nurse Practitioner; Orthopaedic Surgery Sports Medicine
PROC: 5A1D70Z Performance of Urinary Filtration, Intermittent, Less than 6 Hours Per Day (ICD-10-PCS; principal; 2017-12-07)
PROC: 0Y6T0Z1 Detachment at Right 3rd Toe, High, Open Approach (ICD-10-PCS; 2017-12-09)
PROC: 5A1D70Z Performance of Urinary Filtration, Intermittent, Less than 6 Hours Per Day (ICD-10-PCS; 2017-12-09)
PROC: 0Y6V0Z1 Detachment at Right 4th Toe, High, Open Approach (ICD-10-PCS; 2017-12-09)
DX: A41.9 Sepsis, unspecified organism (principal); N18.6 End stage renal disease; E11.52 Type 2 diabetes mellitus with diabetic peripheral angiopathy with gangrene; E46 Unspecified protein-calorie malnutrition; L03.115 Cellulitis of right lower limb; M86.8X8 Other osteomyelitis, other site; E11.69 Type 2 diabetes mellitus with other specified complication; I25.10 Atherosclerotic heart disease of native coronary artery without angina pectoris; E11.22 Type 2 diabetes mellitus with diabetic chronic kidney disease; D63.8 Anemia in other chronic diseases classified elsewhere; I70.213 Atherosclerosis of native arteries of extremities with intermittent claudication, bilateral legs; I12.9 Hypertensive chronic kidney disease with stage 1 through stage 4 chronic kidney disease, or unspecified chronic kidney disease; I25.5 Ischemic cardiomyopathy; E11.65 Type 2 diabetes mellitus with hyperglycemia; E11.622 Type 2 diabetes mellitus with other skin ulcer; Z86.14 Personal history of Methicillin resistant Staphylococcus aureus infection; I25.2 Old myocardial infarction; Z90.49 Acquired absence of other specified parts of digestive tract; Z89.422 Acquired absence of other left toe(s); Z82.49 Family history of ischemic heart disease and other diseases of the circulatory system; Z83.6 Family history of other diseases of the respiratory system; Z87.891 Personal history of nicotine dependence; Z68.27 Body mass index [BMI] 27.0-27.9, adult; Z79.82 Long term (current) use of aspirin; Z79.899 Other long term (current) drug therapy
CPT/HCPCS: 10783; 32100; 50010; 50101; 50386; 56525; 57160; 62110; 62900; 70005

== ENCOUNTER 2017-12-13 19:48 | Inpatient (IN) | payer OTHER ==
[~2017-12-13] VITALS: Ht 175.3 cm; Wt 67.4 kg
[2017-12-13] VITALS (10 sets, daily range): BP systolic 116–186; BP diastolic 76–104
--- NOTE | ~2017-12-13 | EKG ---
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
--- NOTE | ~2017-12-13 | HC ---
[facility] [place] [address] CONSULTATION Name: AZALEA LOWERY Room #: 360-P [facility].#: [id number] Admission: 12/13/17 Attend Phys: Ammon Sneed MD Discharge: 12/31/17 Date of : 49 Report #: [id number] THIS REPORT FOR: //name// CC: Manolo Sneed DATE OF SERVICE: 12/14/2017 HISTORY OF PRESENT ILLNESS: A 72-year-old male patient who was evaluated by me for hypoxic encephalopathy. This patient was admitted after cardiac arrest. He basically fell and when the EMS arrived, they noticed that the patient had cardiac arrest and he had to be resuscitated. The patient is on hypothermia protocol for the time being. REVIEW OF SYSTEMS: Available only from the records. The patient apparently is on dialysis. He had this cardiac arrest. He was in VFib. Presently, he is on hypothermia protocol. No family member is available. Multiple consultants are following this patient. He has a history of diabetes, hypertension, anemia, MRSA and end-stage renal disease. I tried to get the 14-point review of systems in this patient and that is all I can get it from the record. PAST MEDICAL HISTORY: Unavailable except he is on dialysis. FAMILY HISTORY: Also unavailable. SOCIAL HISTORY: I cannot reach any family for the time being and we will try and from the record, also it is not available. PHYSICAL EXAMINATION: NEUROLOGICAL: Very limited. The patient is comatose. He is on propofol. Nurses tell me when propofol is taken off, he does have some movement, but no purposeful movement. He is intubated. He has bandages on his lower extremities. CARDIAC: Examination is noncontributory. GENERAL: He is a well-developed individual. VITAL SIGNS: His blood pressure is 130/65, respiration is 20, pulse is 57 and temperature is 98.9 because of hypothermia. EXTREMITIES: Pulses are difficult to feel. LABORATORY DATA: Indicates a white count of 12.5. His sodium is 132. RADIOLOGICAL DATA: He did have a CT scan of the head on admission, which mainly showed atrophic changes. IMPRESSION AND RECOMMENDATIONS: This patient is being evaluated for hypoxic [facility] [address] [place] [address] CONSULTATION Name: AZALEA LOWERY Room #: 360-P [facility]#: [id number] Admission: 12/13/17 Attend Phys: Ammon Sneed MD Discharge: 12/31/17 Date of : 49 Report #: [id number] encephalopathy. We will get an EEG done as the first test in this patient, but we will try to do that tomorrow after the patient is warmed up. Then, we decide about the further management in this patient. We will follow up this patient tomorrow. Thank you very much for this referral. <ELECTRONICALLY SIGNED> By: Higinio Faustin MD 12/15/17 1659 1313 2316 MD fatou Soriano
--- NOTE | ~2017-12-13 | EEG ---
[facility] [place] [address] ELECTROENCEPHALOGRAM Name: AZALEA LOWERY Room #: 360-P [facility] IN ..#: [id number] Admission: 12/13/17 Attend Phys: Ammon Sneed MD Discharge: 12/31/17 Date of : 49 Report #: [id number] THIS REPORT FOR: //name// CC: Manolo Sneed MD HISTORY: The patient is a 72-year-old male status post cardiac arrest with altered mental status. An EEG is requested for further evaluation. The patient is currently sedated with propofol. DESCRIPTION: The record consists of low-amplitude activity with no clear posterior dominant rhythm seen. Throughout the recording, an intermittent moderate amplitude 2-3 Hz activity is seen predominant over the frontal head regions. Photic stimulation was non-activating. IMPRESSION: This is an abnormal adult record, consistent with severe diffuse cerebral dysfunction. It should be noted that the patient was sedated with propofol during the recording and this recording reflects that. Perhaps consideration should be given to repeating the EEG without sedation if possible. No subclinical seizures are noted. <ELECTRONICALLY SIGNED> By: Olviia Cespedes DO 12/20/17 1457 1344 1350 Olivia Cespedes DO /nt
--- NOTE | ~2017-12-13 | EEG ---
[facility] [place] [address] ELECTROENCEPHALOGRAM Name: AZALEA LOWERY Room #: 360-P [facility] IN M.R.#: [id number] Admission: 12/13/17 Attend Phys: Ammon Sneed MD Discharge: 12/31/17 Date of : 49 Report #: [id number] THIS REPORT FOR: //name// CC: Manolo Sneed DATE OF SERVICE: 12/15/2017 This patient is being evaluated for encephalopathy. EEG was done by placing the electrodes by standard 10-20 system of electrode placement. Both referential and sequential montages were used for recording. Background activity is about 7 Hz and 40 microvolt. Triphasic waves were noticed, which are frontally predominant. Photic stimulation was unremarkable. IMPRESSION: This is an abnormal EEG demonstrating triphasic waves. That finding is consistent with severe encephalopathy. This encephalopathy can occur because of hypoxia or renal problems or hepatic problems. The patient will need serial EEGs to determine the prognosis. Thank you very much for this referral. <ELECTRONICALLY SIGNED> By: Higinio Faustin MD 12/21/17 0948 1628 1706 Higinio Faustin MD /nt
--- NOTE | ~2017-12-13 | EKG ---
[address] [employer] [place] [address] ELECTROCARDIOGRAM REPORT Name: AZALEA LOWERY Room #: 360-P [facility]#: [id number] Admission: 12/13/17 Attend Phys: Ammon Sneed MD Discharge: 12/31/17 Date of : 49 Report #: [id number] THIS REPORT FOR: //name// [facility] ED Test Date: 2017-12-13 Test Time: 19:51:19 Pat Name: AZALEA LOWERY Department: [facility] Gender: M Hl7 Developer: AURA : 1945 Requested By: Alfredo Ravi Order Number: [id number] MD: Phillip Randall Measurements Intervals [place] Rate: 99 P: CT: QRS: -58 QRSD: 200 T: 51 QT: 442 QTc: 568 Interpretive Statements Sinus tachycardia Right bundle branch block No previous ECG available for comparison Electronically Signed On 12-14-2017 15:05:41 CDT by Phillip Randall [email or web address] <ELECTRONICALLY SIGNED> By: Phillip Randall MD 12/14/17 1505 50 50 Phillip Randall MD /RIDGE
--- NOTE | ~2017-12-13 | HC ---
[facility] [place] [address] CONSULTATION Name: BEVERLEYAZALEA Annemarie Room #: 360-P [facility] IN ..#: [id number] Admission: 12/13/17 Attend Phys: Ammon Sneed MD Discharge: 12/31/17 Date of : 49 Report #: [id number] THIS REPORT FOR: //name// CC: Manolo Sneed REASON FOR CONSULTATION: End-stage renal disease. REASON FOR PRESENTATION: Post arrest. HISTORY OF PRESENT ILLNESS: A well-known patient to me. He was discharged from the hospital yesterday. 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 He was brought to the Emergency Room unresponsive and intubated. The daughter told the ER that he had repeated falls after his discharge. She was in another room, came back and found the patient on the floor. He was coherent and able to sit up. The third falling episode was associated with complete loss of consciousness. The patient was pulseless and EMS was called. He was down for about 10 minutes. He was in full cardiac arrest with an initial EKG showing V-fib, V-tach. CPR was initiated. Blood glucose was 16. He was moved to the Emergency Room for further evaluation and management. As I have stated, I managed his end-stage renal disease in the last week. He was admitted for nonhealing wounds and had extensive past history of peripheral vascular disease. I am being consulted to manage his end-stage renal disease. PAST MEDICAL HISTORY: Extensive and includes the followin. End-stage renal disease. 2. Diabetes mellitus. 3. Hypertension. 4. Peripheral vascular disease. 5. Post-cardiac arrest. REVIEW OF SYSTEMS: Unobtainable given the patient's current mental status. MEDICATIONS: 1. Vancomycin. 2. Albuterol. 3. Famotidine. 4. Insulin. 5. Zosyn. 6. Propofol. 7. Sodium bicarb. SOCIAL HISTORY: He lives with his daughter. No drug or alcohol abuse reported. [facility] [address] [place] [address] CONSULTATION Name: BEVERLEYAZALEA L Room #: 360-P [facility]#: [id number] Admission: 12/13/17 Attend Phys: Ammon Sneed MD Discharge: 12/31/17 Date of : 49 Report #: [id number] FAMILY HISTORY: Unobtainable. PAST SURGICAL HISTORY: 1. Left AV fistula. 2. Multiple peripheral vascular procedures. PHYSICAL EXAMINATION: GENERAL: Intubated. VITAL SIGNS: Temperature 33.2, pulse rate 64, respiratory rate 20, blood pressure 170/80. HEAD AND NECK: No jugular venous distention. ET tube in place. CHEST: Bilateral crackles. CARDIOVASCULAR: No rub detected. ABDOMEN: Soft, nontender. LOWER EXTREMITIES: +2 edema. LABORATORY DATA: Reviewed. Most recent chemistry panel revealed a sodium of 131, a potassium of 6.5, an anion gap of 19, a BUN of 74, a creatinine of 9. Troponin initially 0.52. Head CT with atrophic changes. Chest x-ray consistent with pulmonary edema. ASSESSMENT, IMPRESSION, PLAN: 1. End-stage renal disease. 2. Hyperkalemia. 3. Status post cardiac arrest. 4. Diabetes mellitus. 5. Peripheral vascular disease. 6. We will initiate the hemodialysis for the patient as soon as possible. 7. Discontinue his sodium bicarb drip. 8. Workup for his event has been initiated including cardiac consultation. 9. Vent support. 10. Septic workup initiated. 11. Pulmonary embolism is a possibility and this has to be ruled out. 12. Hemodynamic support. 13. Appropriate antibiotic. 14. Wound care. 15. We will wait for his hypothermia protocol to be over to decide about his neurological recovery. <ELECTRONICALLY SIGNED> By: Juan Jose Mcdonald MD 12/26/17 0557 0637 1636 Juan Jose Mcdonald MD /nt
--- NOTE | ~2017-12-13 | 2DMMODE ---
[facility] [place] [address] 2 D/M-MODE ECHOCARDIOGRAM Name: HORACIOBOLAAZALEA L Room #: 360-P [facility]#: [id number] Admission: 12/13/17 Attend Phys: Ammon Sneed MD Discharge: 12/31/17 Date of : 49 Date of Service: 12/14/17 1028 Report #: [id number] THIS REPORT FOR: //name// APPROVED REPORT Study performed: 12/14/2017 09:25:52 EXAM: Comprehensive 2D, Doppler, and color-flow Echocardiogram Patient Location: ICU Room #: 242 Status: routine BSA: 2.03 HR: 66 bpm BP: 144/69 mmHg Other Information Study Quality: Adequate Technically limited study due to inability to position patient, patient on ventilator. Indications Diabetes Hypertension/HDD Post cardiac arrest, VFIB 2D Dimensions RVDd: 48.36 mm IVSd: 16.74 (7-11mm) LVOT Diam: 23.74 (18-24mm) LVDd: 47.58 mm PWd: 14.77 (7-11mm) Ascending Ao: 37.65 (22-36mm) LVDs: 43.33 (25-40mm) Aortic Root: 38.36 mm IVC: 31.00 mm Volumes Left Atrial Volume (Systole) Single Plane 4CH: 91.31 mL Single Plane 2CH: 56.78 mL LA ESV Index: 41.00 mL/m2 Aortic Valve AoV Peak Misbah.: 1.01 m/s AO Peak Gr.: 4.08 mmHg LVOT Max P.47 mmHg LVOT Max V: 0.61 m/s GLENN Vmax: 2.66 cm2 Mitral Valve [facility] [place] [address] 2 D/M-MODE ECHOCARDIOGRAM Name: AZALEA LOWERY Annemarie Room #: [address] [place] [address]#: [id number] Admission: 12/13/17 Attend Phys: Ammon Sneed MD Discharge: 12/31/17 Date of : 49 Date of Service: 12/14/17 1028 Report #: [id number] E/A Ratio: 2.5 MV Decel. Time: 229.50 ms MV E Max Misbah.: 0.85 m/s MV A Misbah.: 0.34 m/s MV PHT: 66.56 ms IVRT: 152.25 ms Pulmonary Valve PV Peak Misbah.: 0.53 m/s PV Peak Gr.: 1.14 mmHg Pulmonary Vein P Vein S: 0.23 m/s P Vein A: 0.07 m/s P Vein D: 0.27 m/s P Vein A Dur.: 73.8 msec P Vein S/D Ratio: 0.85 Tricuspid Valve RAP Estimate: 15.00 mmHg Left Ventricle The left ventricle is normal size. Moderate concentric left ventricular hypertrophy. Left ventricular systolic function is mildly to moderately decreased. LVEF is 40-45%. Right Ventricle Right ventricle is dilated. Right ventricle is hypokinetic. Atria Left atrium is moderately dilated. Right atrium is moderately severely dilated. Aortic Valve Aortic valve is mildly calcified. focal echo density likely calcification but vegetation cannot be excluded Trace to mild aortic regurgitation. There is no aortic valvular stenosis. Mitral Valve Mild mitral annular calcification. Mild mitral regurgitation. No evidence of mitral valve stenosis. Tricuspid Valve The tricuspid valve is normal in structure. Trace tricuspid regurgitation. Unable to assess PA pressure. Pulmonic Valve The pulmonary valve is normal in structure. Trace to mild pulmonic [address] [address] 2 D/M-MODE ECHOCARDIOGRAM Name: AZALEA LOWERY Annemarie Room #: 360-P [facility].#: [id number] Admission: 12/13/17 Attend Phys: Ammon Sneed MD Discharge: 12/31/17 Date of : 49 Date of Service: 12/14/17 1028 Report #: [id number] regurgitation. Great Vessels The aortic root is normal in size. Ascending aorta is upper limits of normal in caliber at 3.8 cm. The IVC is dilated. Pericardium No pericardial effusion. pleural effusion noted <Conclusion> The left ventricle is normal size. LVEF is 40-45%. Right ventricle is dilated. Right ventricle is hypokinetic. Left atrium is moderately dilated. Right atrium is moderately severely dilated. Aortic valve is mildly calcified. focal echo density likely calcification but vegetation cannot be excluded Trace to mild aortic regurgitation. Mild mitral annular calcification. Mild mitral regurgitation. The tricuspid valve is normal in structure. Trace tricuspid regurgitation. Unable to assess PA pressure. The pulmonary valve is normal in structure. Trace to mild pulmonic regurgitation. pleural effusion noted No pericardial effusion. <ELECTRONICALLY SIGNED> By: Lang Ma MD 12/14/17 1028 1028 1028 Lang Ma MD /INF
--- NOTE | ~2017-12-13 | EKG ---
[address] [place] [address] [place] [address] ELECTROCARDIOGRAM REPORT Name: AZALEA LOWERY Annemarie Room #: 360-P [facility]#: [id number] Admission: 12/13/17 Attend Phys: Ammon Sneed MD Discharge: 12/31/17 Date of : 49 Report #: [id number] THIS REPORT FOR: //name// [facility] ED Test Date: 2017-12-13 Test Time: 20:44:13 Pat Name: AZALEA LOWERY Department: Room: Critical access hospital Gender: M Vp Rheumatology: AURA : 1945 Requested By: Alfredo Ravi Order Number: [id number] MD: Gwyn Xiong Measurements Intervals [place] Rate: 77 P: 133 WI: 314 QRS: -49 QRSD: 141 T: 62 QT: 442 QTc: 501 Interpretive Statements Accelerated junctional rhythm Nonspecific IVCD with LAD Inferior infarct, old No previous ECG available for comparison Electronically Signed On 12-14-2017 8:43:49 CDT by Gwyn Xiong [email or web address] <ELECTRONICALLY SIGNED> By: Gwyn Xiong MD, [facility] 12/14/17 [phone] Gwyn Xiong MD, [facility] /EPI
[~2017-12-13 19:48] MED LIST changes: +NORCO 10-325 T1 EACH PO
[2017-12-13 20:04] LABS: BE(vivo) -18.2 mmol/L (-2 to +3); HCO3 9.4 mmol/L (22.0-26.0); PCO2 28.1 mmHg (35.0-45.0); PO2 397.1 mmHg (80.0-100.0); sO2 99.7 % (92.0-98.0)
[2017-12-13 20:05] LABS: pH 7.141 (7.360-7.450)
[2017-12-13 20:08] LABS: HEMATOCRIT 33.3 % (42.0-52.0); HEMOGLOBIN 10.3 gm/dL (14.0-18.0); MCH 32.1 pg (26.0-34.0); MCHC 30.8 g/dL (28.0-37.0); MCV 104.3 fL (80.0-100.0); PLATELET COUNT 164 thou/uL (150-400); RBC 3.19 mil/uL (4.50-6.00); RDW 18.9 % (10.5-14.5); WBC 10.6 thou/uL (4.0-11.0)
[2017-12-13 20:13] LABS: POC CA IONIZED 4.5 mg/dL (4.5-5.3); POC HEMOGLOBIN 10.5 g/dL (14.0-18.0)
[2017-12-13 20:16] LABS: CALCIUM 10.8 mg/dL (8.5-10.1); CREATININE 8.8 mg/dL (0.7-1.3)
[2017-12-13 20:19] LABS: POTASSIUM 6.2 mmol/L (3.5-5.1)
[2017-12-13 20:31] LABS: ALBUMIN 2.3 g/dL (3.4-5.0); TOTAL PROTEIN 7.8 g/dL (6.4-8.2); TROPONIN-I 0.52 ng/mL (<0.06)
[2017-12-13 20:50] LABS: ABSOLUTE NEUTROPHILS 6.6 thou/uL (1.4-8.2); ATYPICAL LYMPHS 3 %; METAMYELOCYTES 1 %; MYELOCYTES 2 %; NUCLEATED RBCS 2 /100WBC
[2017-12-13 20:51] LABS: LARGE PLATELETS MANY
[2017-12-13 20:52] LABS: ANISOCYTOSIS 1+; BURR CELLS OCCASIONAL; HYPOCHROMASIA SLIGHT; MACROCYTES 1+; POLYCHROMASIA 1+
[2017-12-13 22:55] LABS: BE(vivo) -15.5 mmol/L (-2 to +3); HCO3 11.4 mmol/L (22.0-26.0); PCO2 30.9 mmHg (35.0-45.0); PO2 601.3 mmHg (80.0-100.0); sO2 99.9 % (92.0-98.0)
[2017-12-13 22:56] LABS: pH 7.185 (7.360-7.450)
[2017-12-14] VITALS (36 sets, daily range): BP systolic 110–182; BP diastolic 62–92
[2017-12-14 02:35] LABS: HEMOGLOBIN 8.6 gm/dL (14.0-18.0); MCH 31.8 pg (26.0-34.0); MCHC 30.6 g/dL (28.0-37.0); MCV 103.7 fL (80.0-100.0); RBC 2.7 mil/uL (4.50-6.00); RDW 19.1 % (10.5-14.5); WBC 11.7 thou/uL (4.0-11.0)
[2017-12-14 02:53] LABS: ALBUMIN 2.2 g/dL (3.4-5.0); CALCIUM 9.5 mg/dL (8.5-10.1); PHOSPHORUS 8.2 mg/dL (2.5-4.9); TOTAL BILIRUBIN 1.4 mg/dL (<0.1-1.0); TOTAL PROTEIN 7.7 g/dL (6.4-8.2)
[2017-12-14 03:00] LABS: POTASSIUM 6.5 mmol/L (3.5-5.1)
[2017-12-14 09:00] LABS: ABSOLUTE NEUTROPHILS 10.9 thou/uL (1.4-8.2); MCHC 32.4 g/dL (28.0-37.0)
[2017-12-14 09:02] LABS: BASOPHILS 0.4 % (0.0-2.0); HEMATOCRIT 27.8 % (42.0-52.0); LYMPHOCYTES 3.8 % (24.0-44.0); MCH 31.5 pg (26.0-34.0); MONOCYTES 8.6 % (1.0-8.0); PLATELET COUNT 159 thou/uL (150-400); POLYS 87.2 % (36.0-66.0); RBC 2.86 mil/uL (4.50-6.00); RDW 18.8 % (10.5-14.5); WBC 12.5 thou/uL (4.0-11.0)
[2017-12-14 09:03] LABS: MCV 97.3 fL (80.0-100.0)
[2017-12-14 09:09] LABS: APTT 30.1 Seconds (24.5-32.8); INR 1.7; PROTIME 17.3 Seconds (9.3-11.4)
[2017-12-14 09:16] LABS: CALCIUM 9.3 mg/dL (8.5-10.1); MAGNESIUM 2.1 mg/dL (1.8-2.4); PHOSPHORUS 3.9 mg/dL (2.5-4.9)
[2017-12-14 09:19] LABS: POTASSIUM 3.8 mmol/L (3.5-5.1); TROPONIN-I 1.82 ng/mL (<0.06)
[2017-12-14 09:20] LABS: CREATININE 5.2 mg/dL (0.7-1.3)
[2017-12-14 10:27] LABS: HCO3 28.2 mmol/L (22.0-26.0); PCO2 40.5 mmHg (35.0-45.0); PO2 203.5 mmHg (80.0-100.0); sO2 99.4 % (92.0-98.0)
[2017-12-14 14:46] LABS: ABSOLUTE NEUTROPHILS 8.2 thou/uL (1.4-8.2); BASOPHILS 0.4 % (0.0-2.0); EOSINOPHILS 0.2 % (0.0-3.0); HEMATOCRIT 27.4 % (42.0-52.0); HEMOGLOBIN 9.2 gm/dL (14.0-18.0); LYMPHOCYTES 5.7 % (24.0-44.0); MCH 32.8 pg (26.0-34.0); MCHC 33.7 g/dL (28.0-37.0); MCV 97.3 fL (80.0-100.0); MONOCYTES 7.4 % (1.0-8.0); PLATELET COUNT 139 thou/uL (150-400); POLYS 86.3 % (36.0-66.0); RBC 2.82 mil/uL (4.50-6.00); RDW 18.9 % (10.5-14.5); WBC 9.5 thou/uL (4.0-11.0)
[2017-12-14 15:00] LABS: APTT 31.2 Seconds (24.5-32.8); INR 1.8; PROTIME 17.8 Seconds (9.3-11.4)
[2017-12-14 15:07] LABS: CALCIUM 9.3 mg/dL (8.5-10.1); CREATININE 4.8 mg/dL (0.7-1.3); PHOSPHORUS 4.2 mg/dL (2.5-4.9); POTASSIUM 3.8 mmol/L (3.5-5.1)
[2017-12-14 15:11] LABS: TROPONIN-I 1.75 ng/mL (<0.06)
[2017-12-14 20:57] LABS: ABSOLUTE NEUTROPHILS 6.3 thou/uL (1.4-8.2); BASOPHILS 0.7 % (0.0-2.0); EOSINOPHILS 0.5 % (0.0-3.0); HEMATOCRIT 26.7 % (42.0-52.0); HEMOGLOBIN 9.1 gm/dL (14.0-18.0); MCH 32.8 pg (26.0-34.0); MCV 96.5 fL (80.0-100.0); MONOCYTES 6.4 % (1.0-8.0); PLATELET COUNT 130 thou/uL (150-400); POLYS 85.4 % (36.0-66.0); RBC 2.76 mil/uL (4.50-6.00); RDW 18.4 % (10.5-14.5); WBC 7.4 thou/uL (4.0-11.0)
[2017-12-14 21:08] LABS: CALCIUM 9.1 mg/dL (8.5-10.1); CREATININE 5.4 mg/dL (0.7-1.3); MAGNESIUM 1.9 mg/dL (1.8-2.4); PHOSPHORUS 4.5 mg/dL (2.5-4.9); POTASSIUM 3.8 mmol/L (3.5-5.1)
[2017-12-14 21:13] LABS: PROTIME 18.3 Seconds (9.3-11.4)
[2017-12-14 21:14] LABS: APTT 29.6 Seconds (24.5-32.8); INR 1.9
[2017-12-15] VITALS (24 sets, daily range): BP systolic 104–182; BP diastolic 62–92
[2017-12-15 02:12] LABS: ABSOLUTE NEUTROPHILS 5.9 thou/uL (1.4-8.2); BASOPHILS 0.5 % (0.0-2.0); EOSINOPHILS 0.7 % (0.0-3.0); HEMATOCRIT 27.8 % (42.0-52.0); HEMOGLOBIN 9.2 gm/dL (14.0-18.0); LYMPHOCYTES 7.2 % (24.0-44.0); MCH 31.9 pg (26.0-34.0); MCV 96.7 fL (80.0-100.0); MONOCYTES 6.5 % (1.0-8.0); PLATELET COUNT 145 thou/uL (150-400); POLYS 85.1 % (36.0-66.0); RBC 2.87 mil/uL (4.50-6.00); RDW 18.8 % (10.5-14.5)
[2017-12-15 02:22] LABS: CALCIUM 9.3 mg/dL (8.5-10.1); CREATININE 5.5 mg/dL (0.7-1.3); MAGNESIUM 1.9 mg/dL (1.8-2.4); PHOSPHORUS 4.8 mg/dL (2.5-4.9)
[2017-12-15 02:23] LABS: APTT 31.8 Seconds (24.5-32.8); INR 1.7; PROTIME 16.9 Seconds (9.3-11.4)
[2017-12-15 05:38] LABS: HCO3 24.4 mmol/L (22.0-26.0); PCO2 30.4 mmHg (35.0-45.0); PO2 129.8 mmHg (80.0-100.0); pH 7.523 (7.360-7.450); sO2 98.9 % (92.0-98.0)
[2017-12-15 06:04] LABS: ABSOLUTE NEUTROPHILS 7.7 thou/uL (1.4-8.2); BASOPHILS 0.5 % (0.0-2.0); EOSINOPHILS 0.2 % (0.0-3.0); HEMATOCRIT 28.8 % (42.0-52.0); HEMOGLOBIN 9.8 gm/dL (14.0-18.0); LYMPHOCYTES 4.3 % (24.0-44.0); MCH 32.7 pg (26.0-34.0); MCHC 33.9 g/dL (28.0-37.0); MCV 96.5 fL (80.0-100.0); MONOCYTES 6.3 % (1.0-8.0); PLATELET COUNT 138 thou/uL (150-400); POLYS 88.7 % (36.0-66.0); RBC 2.98 mil/uL (4.50-6.00); RDW 18.5 % (10.5-14.5); WBC 8.7 thou/uL (4.0-11.0)
[2017-12-15 06:06] LABS: CALCIUM 9.4 mg/dL (8.5-10.1); CREATININE 5.7 mg/dL (0.7-1.3); POTASSIUM 4.4 mmol/L (3.5-5.1)
[2017-12-16] VITALS (31 sets, daily range): BP systolic 118–184; BP diastolic 55–93
[2017-12-16 05:33] LABS: BE(vivo) 0.7 mmol/L (-2 to +3); HCO3 25.5 mmol/L (22.0-26.0); PCO2 41.7 mmHg (35.0-45.0); PO2 130.3 mmHg (80.0-100.0); pH 7.405 (7.360-7.450); sO2 98.6 % (92.0-98.0)
[2017-12-16 05:54] LABS: HEMATOCRIT 31.4 % (42.0-52.0); HEMOGLOBIN 10.4 gm/dL (14.0-18.0); MCH 32.3 pg (26.0-34.0); MCHC 33.2 g/dL (28.0-37.0); MCV 97.3 fL (80.0-100.0); RBC 3.23 mil/uL (4.50-6.00); RDW 18.6 % (10.5-14.5); WBC 10.2 thou/uL (4.0-11.0)
[2017-12-16 05:59] LABS: CALCIUM 9.3 mg/dL (8.5-10.1); CREATININE 6.6 mg/dL (0.7-1.3); POTASSIUM 4.9 mmol/L (3.5-5.1)
[2017-12-16 17:35] LABS: BE(vivo) 3.7 mmol/L (-2 to +3); HCO3 28.7 mmol/L (22.0-26.0); PCO2 45.2 mmHg (35.0-45.0); PO2 76.3 mmHg (80.0-100.0); sO2 95.4 % (92.0-98.0)
[2017-12-17] VITALS (28 sets, daily range): BP systolic 112–181; BP diastolic 49–90
[2017-12-17 02:53] LABS: HEMATOCRIT 29.1 % (42.0-52.0); HEMOGLOBIN 9.5 gm/dL (14.0-18.0); MCH 31.5 pg (26.0-34.0); MCHC 32.5 g/dL (28.0-37.0); MCV 97.1 fL (80.0-100.0); WBC 8.5 thou/uL (4.0-11.0)
[2017-12-17 03:25] LABS: CREATININE 4.8 mg/dL (0.7-1.3); PHOSPHORUS 4.4 mg/dL (2.5-4.9); POTASSIUM 4.1 mmol/L (3.5-5.1)
[2017-12-17 07:42] LABS: BE(vivo) 3.1 mmol/L (-2 to +3); HCO3 27.8 mmol/L (22.0-26.0); PCO2 42.6 mmHg (35.0-45.0); pH 7.432 (7.360-7.450); sO2 98.4 % (92.0-98.0)
[2017-12-18] VITALS (57 sets, daily range): BP systolic 98–158; BP diastolic 29–77
[2017-12-18 05:38] LABS: ALBUMIN 1.8 g/dL (3.4-5.0); CALCIUM 8.8 mg/dL (8.5-10.1); PHOSPHORUS 5.6 mg/dL (2.5-4.9)
[2017-12-18 05:40] LABS: CREATININE 6.2 mg/dL (0.7-1.3)
[2017-12-19] VITALS (24 sets, daily range): BP systolic 120–177; BP diastolic 56–88
[2017-12-19 05:35] LABS: HEMATOCRIT 27.9 % (42.0-52.0); HEMOGLOBIN 9.4 gm/dL (14.0-18.0); MCH 33.2 pg (26.0-34.0); MCHC 33.8 g/dL (28.0-37.0); RBC 2.85 mil/uL (4.50-6.00); RDW 19.4 % (10.5-14.5); WBC 6.9 thou/uL (4.0-11.0)
[2017-12-19 05:47] LABS: POTASSIUM 4.2 mmol/L (3.5-5.1)
[2017-12-19 05:48] LABS: CREATININE 4.5 mg/dL (0.7-1.3)
[2017-12-20] VITALS (27 sets, daily range): BP systolic 122–179; BP diastolic 52–87
[2017-12-20 04:36] LABS: ALBUMIN 1.9 g/dL (3.4-5.0); CALCIUM 9.1 mg/dL (8.5-10.1); CREATININE 5.6 mg/dL (0.7-1.3); PHOSPHORUS 5.9 mg/dL (2.5-4.9); POTASSIUM 4.2 mmol/L (3.5-5.1)
[2017-12-21] VITALS (26 sets, daily range): BP systolic 130–192; BP diastolic 57–98
[2017-12-21 05:06] LABS: HEMATOCRIT 30.5 % (42.0-52.0); HEMOGLOBIN 9.9 gm/dL (14.0-18.0); MCH 31.6 pg (26.0-34.0); MCHC 32.4 g/dL (28.0-37.0); MCV 97.5 fL (80.0-100.0); RBC 3.13 mil/uL (4.50-6.00); RDW 18.9 % (10.5-14.5); WBC 6.6 thou/uL (4.0-11.0)
[2017-12-21 05:14] LABS: CALCIUM 9.5 mg/dL (8.5-10.1); POTASSIUM 4.5 mmol/L (3.5-5.1)
[2017-12-21 05:16] LABS: CREATININE 6.8 mg/dL (0.7-1.3)
[2017-12-21] MEDS ORDERED: HYDROCODON-ACE1 EAC5 PO (06:17)
[2017-12-21] MEDS ORDERED: PERCOCET 7.5-31 EACH PO (06:18)
[2017-12-21] MEDS ORDERED: CALCIUM ACETAT667 MG PO (06:18)
[2017-12-21] MEDS ORDERED: NEURONTIN600 MG PO (06:19)
[2017-12-21] MEDS ORDERED: PRAVACHOL20 MG PO (06:19)
[2017-12-21] MEDS ORDERED: ZINC50 M1 PO (06:20)
[2017-12-21] MEDS ORDERED: ASPIR 8181 MG PO (06:20)
[2017-12-21] MEDS ORDERED: TYLENOL325 MG PO (06:20)
[2017-12-21] MEDS ORDERED: VITAMINC500 PO (06:20)
[2017-12-21 10:27] LABS: BE(vivo) 1.3 mmol/L (-2 to +3); HCO3 26.3 mmol/L (22.0-26.0); PCO2 43.4 mmHg (35.0-45.0); PO2 109.6 mmHg (80.0-100.0)
[2017-12-22] VITALS (21 sets, daily range): BP systolic 144–181; BP diastolic 57–87
[2017-12-23] VITALS (45 sets, daily range): BP systolic 135–193; BP diastolic 62–99
[2017-12-23 05:26] LABS: CALCIUM 9.2 mg/dL (8.5-10.1); CREATININE 6.2 mg/dL (0.7-1.3); PHOSPHORUS 6.7 mg/dL (2.5-4.9); POTASSIUM 4.5 mmol/L (3.5-5.1)
[2017-12-23 07:11] LABS: HEPATITIS B SURFACE AG Negative (Negative)
[2017-12-24] VITALS (41 sets, daily range): BP systolic 146–187; BP diastolic 65–90
[2017-12-25] VITALS (23 sets, daily range): BP systolic 155–189; BP diastolic 72–106
[2017-12-25 05:50] LABS: HEMATOCRIT 28.6 % (42.0-52.0); HEMOGLOBIN 9.6 gm/dL (14.0-18.0); MCH 32.3 pg (26.0-34.0); MCHC 33.6 g/dL (28.0-37.0); MCV 96.1 fL (80.0-100.0); RBC 2.98 mil/uL (4.50-6.00); RDW 18.8 % (10.5-14.5); WBC 6.7 thou/uL (4.0-11.0)
[2017-12-25 06:01] LABS: ALBUMIN 2.2 g/dL (3.4-5.0); CALCIUM 9.5 mg/dL (8.5-10.1); CREATININE 6.1 mg/dL (0.7-1.3); PHOSPHORUS 5.3 mg/dL (2.5-4.9)
[2017-12-26 04:25] VITALS: BP 160/70
[2017-12-26 06:29] LABS: ALBUMIN 2.2 g/dL (3.4-5.0); CALCIUM 9.4 mg/dL (8.5-10.1); PHOSPHORUS 4.2 mg/dL (2.5-4.9); POTASSIUM 3.7 mmol/L (3.5-5.1)
[2017-12-26 06:30] LABS: CREATININE 4.6 mg/dL (0.7-1.3)
[2017-12-26 07:46] VITALS: BP 170/90
[2017-12-26 11:52] VITALS: BP 140/70
[2017-12-26 15:07] VITALS: BP 152/81
[2017-12-26 19:18] VITALS: BP 158/72
[2017-12-27 05:10] VITALS: BP 166/77
[2017-12-27 08:05] VITALS: BP 167/94
[2017-12-27 12:00] VITALS: BP 158/92
[2017-12-27 15:00] VITALS: BP 162/66
[2017-12-27 20:11] VITALS: BP 163/74
[2017-12-28 00:06] VITALS: BP 172/81
[2017-12-28 04:41] VITALS: BP 157/78
[2017-12-28 05:57] LABS: HEMATOCRIT 25.9 % (42.0-52.0); HEMOGLOBIN 8.4 gm/dL (14.0-18.0); MCH 31.9 pg (26.0-34.0); MCHC 32.3 g/dL (28.0-37.0); MCV 98.9 fL (80.0-100.0); RBC 2.62 mil/uL (4.50-6.00); RDW 19.7 % (10.5-14.5); WBC 6.6 thou/uL (4.0-11.0)
[2017-12-28 06:13] LABS: CALCIUM 9.1 mg/dL (8.5-10.1); CREATININE 7.4 mg/dL (0.7-1.3); POTASSIUM 3.5 mmol/L (3.5-5.1)
[2017-12-28 08:39] VITALS: BP 164/100
[2017-12-28 11:44] VITALS: BP 185/84
[2017-12-28 16:01] VITALS: BP 170/65
[2017-12-28 23:56] VITALS: BP 160/78
[2017-12-29 04:23] VITALS: BP 169/81
[2017-12-29 11:31] VITALS: BP 172/73
[2017-12-29 17:31] VITALS: BP 171/77
[2017-12-29 19:31] VITALS: BP 157/68
[2017-12-30 03:36] VITALS: BP 168/63
[2017-12-30 06:15] LABS: CALCIUM 9.3 mg/dL (8.5-10.1); CREATININE 7.3 mg/dL (0.7-1.3); PHOSPHORUS 4.8 mg/dL (2.5-4.9)
[2017-12-30 07:07] VITALS: BP 144/68
[2017-12-30 11:55] VITALS: BP 161/82
[2017-12-30 17:05] VITALS: BP 183/92
[2017-12-30 20:57] VITALS: BP 148/69
[2017-12-31 03:14] VITALS: BP 182/89
[2017-12-31 06:08] LABS: ALBUMIN 2.1 g/dL (3.4-5.0); POTASSIUM 3.6 mmol/L (3.5-5.1)
[2017-12-31 06:11] LABS: CREATININE 4.7 mg/dL (0.7-1.3)
[2017-12-31 08:24] VITALS: BP 136/65
[2017-12-31 12:20] VITALS: BP 139/69
[2017-12-31] MEDS ORDERED: CARVEDILOL12.5 MG PO (14:18)
[2017-12-31] MEDS ORDERED: COZAAR 50 MG TA50 M1 PO (14:21)
[2017-12-31] MEDS ORDERED: GENTAMICIN 0.1%15 G2 TOP (14:32)
[2017-12-31] MEDS ORDERED: VANCOMYCIN125 MG/2.1 PO (14:32)
== END 2017-12-31 16:18 | DRG 870 ==
LOC: ER 19:48 → EDBD 19:48 → 3W 20:25 → ICU 20:25 → 3W 20:25 → EROBS 20:25 → ICU 21:31 → 3W 12-26 00:19
PROVIDERS: Emergency Medicine; Hospitalist; Internal Medicine Nephrology; Internal Medicine Pulmonary Disease; Nurse Practitioner Acute Care; Nurse Practitioner Family
DX: A41.9 Sepsis, unspecified organism (principal); J96.01 Acute respiratory failure with hypoxia; N18.6 End stage renal disease; I46.9 Cardiac arrest, cause unspecified; I49.01 Ventricular fibrillation; J69.0 Pneumonitis due to inhalation of food and vomit; G93.1 Anoxic brain damage, not elsewhere classified; E11.52 Type 2 diabetes mellitus with diabetic peripheral angiopathy with gangrene; I96 Gangrene, not elsewhere classified; E46 Unspecified protein-calorie malnutrition; M86.9 Osteomyelitis, unspecified; I48.92 Unspecified atrial flutter; I47.2 Ventricular tachycardia; I12.0 Hypertensive chronic kidney disease with stage 5 chronic kidney disease or end stage renal disease; T87.9 Unspecified complications of amputation stump; E11.22 Type 2 diabetes mellitus with diabetic chronic kidney disease; E11.51 Type 2 diabetes mellitus with diabetic peripheral angiopathy without gangrene; E87.5 Hyperkalemia; E11.649 Type 2 diabetes mellitus with hypoglycemia without coma; D63.8 Anemia in other chronic diseases classified elsewhere; E11.69 Type 2 diabetes mellitus with other specified complication; I25.10 Atherosclerotic heart disease of native coronary artery without angina pectoris; K21.9 Gastro-esophageal reflux disease without esophagitis; T68.XXXA Hypothermia, initial encounter; L97.519 Non-pressure chronic ulcer of other part of right foot with unspecified severity; Z16.24 Resistance to multiple antibiotics; R41.0 Disorientation, unspecified; I25.5 Ischemic cardiomyopathy; E11.621 Type 2 diabetes mellitus with foot ulcer; Z90.49 Acquired absence of other specified parts of digestive tract; Z95.820 Peripheral vascular angioplasty status with implants and grafts; Z89.422 Acquired absence of other left toe(s); I25.2 Old myocardial infarction; Z68.21 Body mass index [BMI] 21.0-21.9, adult; Z82.49 Family history of ischemic heart disease and other diseases of the circulatory system; Z87.891 Personal history of nicotine dependence; Z98.49 Cataract extraction status, unspecified eye; Z86.14 Personal history of Methicillin resistant Staphylococcus aureus infection; Z79.899 Other long term (current) drug therapy; Z99.2 Dependence on renal dialysis
CPT/HCPCS: 10078; 10779; 32100

== ENCOUNTER 2018-01-11 02:56 | Inpatient (IN) | payer OTHER ==
[~2018-01-11] VITALS: Ht 177.8 cm; Wt 86.2 kg
--- NOTE | ~2018-01-11 | HC ---
[facility] [place] [address] CONSULTATION Name: AZALEA LOWERY Room #: 217-P [facility] M.R.#: [id number] Admission: 01/11/18 Attend Phys: Peter Sharp MD Discharge: 01/11/18 Date of : 49 Report #: [id number] THIS REPORT FOR: //name// CC: Peter Mac DATE OF SERVICE: 01/11/2018 NEPHROLOGY CONSULTATION ATTENDING PHYSICIAN: Dr. Sharp. REASON FOR CONSULTATION: End-stage renal disease. HISTORY OF PRESENT ILLNESS: The patient is extremely well known to our service with end-stage renal disease and long-standing diabetes mellitus, who was recently hospitalized here after severe hypoglycemia and cardiorespiratory arrest, requiring resuscitation, hypothermia protocol. He had anoxic brain injury, but had a fair amount of recovery and then 11 days ago, went to the [facility], where he has been undergoing dialysis. This morning, the patient was noted to have fallen and then it was noted that his left arm fistula and left arm in general were swollen, tender and red. He was taken through the Emergency Room here for evaluation and admission and possible clotted fistula. The patient otherwise has been doing reasonably well. He has been doing his therapy. He has been coming around. He has foot wounds bilaterally on the left side after a transmetatarsal amputation and on the right foot as well. These have been treated initially with antibiotics and now with local measures. PAST MEDICAL HISTORY: End-stage renal disease; diabetes mellitus, long-standing; hypertension; severe peripheral vascular disease; status post cardiorespiratory arrest. He has had previous toe amputations. SOCIAL HISTORY: He has been living now in an extended care facility on and off for some time due to multiple medical problems, mostly the ulcers on his feet. No substantial cigarettes or alcohol at the current time. REVIEW OF SYSTEMS: GENERAL: He has been feeling otherwise reasonably well. EYES: Vision is reasonably good. ENT: Hearing okay, swallows okay. ENDOCRINE: Positive for his diabetes. RESPIRATORY: He is not short winded. CARDIAC: There is no chest pain. [facility] [address] [place] [address] CONSULTATION Name: AZALEA LOWERY Annemarie Room #: 217-P [facility] ..#: [id number] Admission: 01/11/18 Attend Phys: Peter Sharp MD Discharge: 01/11/18 Date of : 49 Report #: [id number] GASTROINTESTINAL: No nausea, vomiting or diarrhea. GENITOURINARY: Makes very little urine. NEUROLOGIC: Generalized weakness and some cognitive deficits. PHYSICAL EXAMINATION: GENERAL: This is a chronically ill-appearing, weak gentleman, in no acute distress. SKIN: Otherwise, unremarkable. SKELETAL: He has got dressings on both feet. HEENT: Extraocular movements are full. Vision intact. No scleral icterus. Hearing intact. Mucous membranes moist. NECK: Supple. CHEST: Clear. HEART: Regular. ABDOMEN: Soft. EXTREMITIES: As above, left arm AV fistula is swollen, tender and erythematous with good thrill and bruit. ASSESSMENT AND PLAN: 1. Infected left arm AV fistula. The fistula appears to be infected. Probably, he will need some surgical attention and drainage. He will need to be transferred to the hospital with Vascular Surgery. 2. End-stage renal disease, on dialysis. 3. Diabetes mellitus with triopathy. 4. Peripheral vascular disease, status post left transmetatarsal amputation with poorly healing wounds on both feet. 5. Status post cardiorespiratory arrest with anoxic brain damage. <ELECTRONICALLY SIGNED> By: Torrey Montiel MD 01/14/18 1108 [id number] 1410 Torrey Montiel MD /nt
[~2018-01-11 02:56] MED LIST changes: +CARVEDILOL12.5 MG PO; +COZAAR 50 MG TA50 M1 PO; +GENTAMICIN 0.1%15 G2 TOP; +HYDROCODON-ACE1 EAC5 PO; +VANCOMYCIN125 MG/2.1 PO
[2018-01-11 02:59] VITALS: BP 166/74
[2018-01-11 04:02] LABS: CALCIUM 9.4 mg/dL (8.5-10.1); CREATININE 7.2 mg/dL (0.7-1.3); POTASSIUM 4.9 mmol/L (3.5-5.1)
[2018-01-11 04:04] LABS: HEMOGLOBIN 12.2 gm/dL (14.0-18.0); MCH 31.2 pg (26.0-34.0); MCHC 32.1 g/dL (28.0-37.0); MCV 97.2 fL (80.0-100.0); RBC 3.91 mil/uL (4.50-6.00); RDW 19.3 % (10.5-14.5); WBC 5.5 thou/uL (4.0-11.0)
[2018-01-11 04:09] LABS: APTT 23.3 Seconds (24.5-32.8); PROTIME 10.7 Seconds (9.3-11.4)
[2018-01-11 05:14] VITALS: BP 168/74
[2018-01-11 05:52] VITALS: BP 141/56
[2018-01-11 08:01] VITALS: BP 119/83
== END 2018-01-11 15:49 | disposition short-term general hospital (02) | DRG 314 ==
LOC: ER 02:56 → 2N 04:16 → EROBS 04:16 → 2N 05:30
PROVIDERS: Emergency Medicine
DX: T82.868A Thrombosis due to vascular prosthetic devices, implants and grafts, initial encounter (principal); N18.6 End stage renal disease; E46 Unspecified protein-calorie malnutrition; I12.0 Hypertensive chronic kidney disease with stage 5 chronic kidney disease or end stage renal disease; T82.7XXA Infection and inflammatory reaction due to other cardiac and vascular devices, implants and grafts, initial encounter; E11.22 Type 2 diabetes mellitus with diabetic chronic kidney disease; S40.022A Contusion of left upper arm, initial encounter; E11.51 Type 2 diabetes mellitus with diabetic peripheral angiopathy without gangrene; Y84.1 Kidney dialysis as the cause of abnormal reaction of the patient, or of later complication, without mention of misadventure at the time of the procedure; I25.5 Ischemic cardiomyopathy; I25.2 Old myocardial infarction; Z89.422 Acquired absence of other left toe(s); Z82.49 Family history of ischemic heart disease and other diseases of the circulatory system; Z68.27 Body mass index [BMI] 27.0-27.9, adult; Z95.820 Peripheral vascular angioplasty status with implants and grafts; Y92.89 Other specified places as the place of occurrence of the external cause; Z99.2 Dependence on renal dialysis; Z79.899 Other long term (current) drug therapy; W18.39XA Other fall on same level, initial encounter; Y93.89 Activity, other specified; Y99.8 Other external cause status
CPT/HCPCS: 10194

== ENCOUNTER → 2018-02-17 | Outpatient (CLI) | payer OTHER | LOC: HYPER 02-02 07:21 | DX: T86.828 Other complications of skin graft (allograft) (autograft) (principal); I70.235 Atherosclerosis of native arteries of right leg with ulceration of other part of foot; L97.512 Non-pressure chronic ulcer of other part of right foot with fat layer exposed; I70.245 Atherosclerosis of native arteries of left leg with ulceration of other part of foot; L97.522 Non-pressure chronic ulcer of other part of left foot with fat layer exposed; E11.69 Type 2 diabetes mellitus with other specified complication; M86.672 Other chronic osteomyelitis, left ankle and foot; E11.52 Type 2 diabetes mellitus with diabetic peripheral angiopathy with gangrene; I96 Gangrene, not elsewhere classified; E11.42 Type 2 diabetes mellitus with diabetic polyneuropathy; E11.22 Type 2 diabetes mellitus with diabetic chronic kidney disease; I12.0 Hypertensive chronic kidney disease with stage 5 chronic kidney disease or end stage renal disease; N18.6 End stage renal disease; E78.49 Other hyperlipidemia; I48.92 Unspecified atrial flutter; I25.10 Atherosclerotic heart disease of native coronary artery without angina pectoris; I25.5 Ischemic cardiomyopathy; I25.2 Old myocardial infarction; K21.9 Gastro-esophageal reflux disease without esophagitis; F32.9 Major depressive disorder, single episode, unspecified; F41.9 Anxiety disorder, unspecified; F17.210 Nicotine dependence, cigarettes, uncomplicated; Z99.2 Dependence on renal dialysis; Y83.2 Surgical operation with anastomosis, bypass or graft as the cause of abnormal reaction of the patient, or of later complication, without mention of misadventure at the time of the procedure ==

== ENCOUNTER → 2018-05-04 | Outpatient (CLI) | payer OTHER ==
[~2018-05-04] MED LIST changes: +AMLODIPINE BESY10 MG PO; +ASPIRIN81 M2 PO; +CENTRUM SILVER1 EAC2 PO; +PROTONIX40 M1 PO; +RENAL CAPS SOFTG1 MG PO
== END ==
LOC: HYPER 03-10 07:03
DX: T87.89 Other complications of amputation stump (principal); T81.31XD Disruption of external operation (surgical) wound, not elsewhere classified, subsequent encounter; E11.621 Type 2 diabetes mellitus with foot ulcer; I70.248 Atherosclerosis of native arteries of left leg with ulceration of other part of lower leg; L97.522 Non-pressure chronic ulcer of other part of left foot with fat layer exposed; L97.512 Non-pressure chronic ulcer of other part of right foot with fat layer exposed; E11.69 Type 2 diabetes mellitus with other specified complication; M86.672 Other chronic osteomyelitis, left ankle and foot; E11.22 Type 2 diabetes mellitus with diabetic chronic kidney disease; I12.9 Hypertensive chronic kidney disease with stage 1 through stage 4 chronic kidney disease, or unspecified chronic kidney disease; N18.6 End stage renal disease; E11.52 Type 2 diabetes mellitus with diabetic peripheral angiopathy with gangrene; I96 Gangrene, not elsewhere classified; E11.42 Type 2 diabetes mellitus with diabetic polyneuropathy; I48.92 Unspecified atrial flutter; I21.4 Non-ST elevation (NSTEMI) myocardial infarction; I25.10 Atherosclerotic heart disease of native coronary artery without angina pectoris; K21.9 Gastro-esophageal reflux disease without esophagitis; M62.81 Muscle weakness (generalized); F17.210 Nicotine dependence, cigarettes, uncomplicated; F41.9 Anxiety disorder, unspecified; F32.9 Major depressive disorder, single episode, unspecified; Z89.432 Acquired absence of left foot; Z99.2 Dependence on renal dialysis; Y83.5 Amputation of limb(s) as the cause of abnormal reaction of the patient, or of later complication, without mention of misadventure at the time of the procedure; Y83.8 Other surgical procedures as the cause of abnormal reaction of the patient, or of later complication, without mention of misadventure at the time of the procedure

== ENCOUNTER 2018-05-11 05:32 | Observation (INO) | payer OTHER ==
[~2018-05-11] VITALS: Ht 177.8 cm; Wt 83.9 kg
[~2018-05-11 05:32] MED LIST changes: +DOXYCYCLINE HY100 M3 PO; +OXYCODONE HCL10 MG PO
[2018-05-11 09:02] LABS: HEMOGLOBIN 11.3 gm/dL (14.0-18.0); MCH 30.8 pg (26.0-34.0); MCHC 32.3 g/dL (28.0-37.0); MCV 95.5 fL (80.0-100.0); RBC 3.66 mil/uL (4.50-6.00); RDW 15.8 % (10.5-14.5)
[2018-05-11 09:15] LABS: CALCIUM 10.3 mg/dL (8.5-10.1); CREATININE 7.1 mg/dL (0.7-1.3); POTASSIUM 3.9 mmol/L (3.5-5.1)
[2018-05-11 09:18] LABS: APTT 31.8 Seconds (24.5-32.8); INR 1.2; PROTIME 12.9 Seconds (9.3-11.4)
[2018-05-11 09:29] LABS: ALBUMIN 2.9 g/dL (3.4-5.0); TOTAL BILIRUBIN 0.8 mg/dL (<0.1-1.0); TOTAL PROTEIN 8.3 g/dL (6.4-8.2)
[2018-05-11 09:35] VITALS: BP 123/87
--- NOTE | 2018-05-11 16:36 | O ---
[facility] [place] [address] OPERATIVE REPORT Name: AZALEA LOWERY Room #: 423-1 [facility]..#: [id number] Admission: 05/11/18 ������������������ Attend Phys: Mayito Draper MD Discharge: ������������������ Date of : 49 Report #: [id number] THIS REPORT FOR: //name// CC: Sahhram Draper DATE OF SERVICE: 05/11/2018 SERVICE: Orthopedics. FACILITY: [facility]. SURGEON: Mayito Draper MD COMM[employer]CIAL PILOT: Sherly Rosales NP PREOPERATIVE DIAGNOSES: 1. Gangrene, right second toe. 2. Status post right third and fourth toe amputations with open nonhealing wound. 3. End-stage renal disease, on hemodialysis, hypertension. POSTOPERATIVE DIAGNOSES: 1. Gangrene, right second toe. 2. Status post right third and fourth toe amputations with open nonhealing wound. 3. End-stage renal disease, on hemodialysis, hypertension. PROCEDURE: 1. Amputation, right second toe with primary closure. 2. Debridement down to fascia layer, right forefoot wound with primary closure. COMPLICATIONS: None. DRAINS: None. SPECIMENS: Toe was sent for permanent. FINDINGS: No signs of osteomyelitis. HISTORY AND INDICATIONS: The patient is a 73-year-old gentleman with severe peripheral vascular disease who is status post right third and fourth toe amputations with an open wound that was healing slowly. He developed necrosis of the second toe and dry gangrene and was unable to recover viability of the toe. He was referred by the wound care doctor for second toe amputation. Dr. Hayes believes that he has the ability to heal the wound in this location and [facility] [address] [place] [address] OPERATIVE REPORT Name: AZALEA LOWERY Room #: 423-1 [facility]..#: [id number] Admission: 05/11/18 ������������������ Attend Phys: Mayito Draper MD Discharge: ������������������ Date of : 49 Report #: [id number] can retain first and fifth toes. Risks, benefits, alternatives and indications were discussed with him and his daughter who gave full informed consent. Risks include but not limited to pain, bleeding, infection, injury to nerves or blood vessels, poor healing of the wound, need for further surgery including revision as well as revision amputation up to the level of the below knee or even above knee amputation as well as complications related to anesthesia up to and including . Despite these risks, they wished to proceed. PROCEDURE IN DETAIL: After right lower extremity was correctly identified in the preoperative holding as the operating extremity, the patient was taken to the operating room. General anesthesia was induced without complication. Tourniquet was applied to right leg, but tourniquet was not utilized during the procedure. One gram vancomycin IV was administered preoperatively for prophylaxis. Right leg was prepped and draped in standard sterile fashion. Time-out procedure was performed. There was a foul smelling necrotic toe with dry gangrene; a circular incision was made around the base of the toe joining it with the open wound from the 3rd and 4th toe amputations done previously. This wound more laterally was overall healthy in appearance. There was some superficial necrotic tissue which was debrided sharply and then bluntly with a curette. After the toe incision was made around the second toe, dissection was taken down to the MTP joint and the toe was removed in bulk and sent for pathology. Dissection was then taken proximal to the metatarsal head and sharp bone resection was performed. The edges were smoothed and this allowed for the bone resection to be proximal to the soft tissue envelope. The wound was then copiously irrigated. Further debridement was performed on the lateral wound down to the fascial layer, but there was no exposed bone in this area and then the fresh skin edges were created on this aspect of the wound making an oval shaped wound in continuity from the new second toe amputation as well as a prior third and fourth toe amputations. The deep layer of buried 0 PDS suture with a [id number] stitch was used to close over the metatarsal and then a 2-0 buried PDS was used to provide a deep skin layer closure and then a 3-0 nylon was utilized to close the skin wound. After this was completed, a sterile dressing was placed followed by well-padded gauze wrap. Note that the skin edges did bleed. Bleeding was not robust, but it does appear to be satisfactory for adequate tissue healing. All counts were correct. There were no complications. ��������������������������������������������� <ELECTRONICALLY SIGNED> ���������������������������������������� By: Mayito Draper MD ��������������������������������������������� 05/11/18 1636 1433 1449 Mayito Draper MD /nt
[2018-05-11 16:40] VITALS: BP 102/41
[2018-05-11 18:20] VITALS: BP 82/43
[2018-05-11 20:00] VITALS: BP 123/46
[2018-05-11 23:46] VITALS: BP 98/56
[2018-05-12 04:30] VITALS: BP 88/66
[2018-05-12 06:05] LABS: HEMATOCRIT 32.5 % (42.0-52.0); HEMOGLOBIN 10.7 gm/dL (14.0-18.0); MCH 31.3 pg (26.0-34.0); MCHC 32.8 g/dL (28.0-37.0); MCV 95.6 fL (80.0-100.0); RBC 3.4 mil/uL (4.50-6.00); RDW 15.4 % (10.5-14.5); WBC 4.8 thou/uL (4.0-11.0)
[2018-05-12 06:13] LABS: CALCIUM 9.5 mg/dL (8.5-10.1); POTASSIUM 4.2 mmol/L (3.5-5.1)
[2018-05-12 06:18] LABS: CREATININE 8.9 mg/dL (0.7-1.3)
[2018-05-12 07:40] VITALS: BP 131/56
[2018-05-12 17:00] VITALS: BP 103/44
[2018-05-12 18:20] VITALS: BP 103/44
--- NOTE | 2018-05-13 07:49 | HC ---
[facility] [place] [address] CONSULTATION Name: AZALEA LOWERY Room #: 423-1 [facility]#: [id number] Admission: 05/11/18 ������������������ Attend Phys: Mayito Draper MD Discharge: 05/12/18 ������������������ Date of : 49 Report #: [id number] THIS REPORT FOR: //name// CC: Shahram Draper REASON FOR CONSULTATION: End-stage renal disease. REASON FOR PRESENTATION: Gangrenous toes. HISTORY OF PRESENT ILLNESS: Very well-known patient to me, 73-year-old with past medical history of peripheral vascular disease, end-stage renal disease, maintained on hemodialysis every Thursday, Thursday and Thursday. He is also known to be diabetic. He had suffered from left-sided osteomyelitis, status post transmetatarsal amputation. He presented with gangrene of the right second toe. He is status post right forefoot, right third and fourth toe amputation in the past. He underwent an elective right second toe amputation. He also had debridement and primary closure of the wound. He is a Thursday, Thursday, Thursday dialysis patient with [facility]. I am being consulted to manage his dialysis related issues. He has no active symptoms during his interview with me today. MEDICATIONS: 1. Carvedilol. 2. Amlodipine. 3. Aspirin. 4. Oxycodone. 5. Calcium acetate. 6. Pantoprazole. PAST MEDICAL HISTORY: 1. End-stage renal disease. 2. Peripheral vascular disease. 3. Status post cardiac arrest. 4. Coronary artery disease. 5. Diabetes mellitus. 6. Hypertension. 7. Osteomyelitis with numerous amputations. PAST SURGICAL HISTORY: 1. Amputations as described above. 2. Bilateral lower extremity stents. 3. Dialysis fistula. SOCIAL HISTORY: No drug or alcohol abuse. He lives with his daughter. FAMILY HISTORY: Significant for hypertension. [facility] [address] [place] [address] CONSULTATION Name: AZALEA LOWERY Room #: 423-1 [facility] Ricarda Hernandez#: [id number] Admission: 05/11/18 ������������������ Attend Phys: Mayito Draper MD Discharge: 05/12/18 ������������������ Date of : 49 Report #: [id number] REVIEW OF SYSTEMS: CONSTITUTIONAL: No fever or chills. CARDIOVASCULAR: No chest pain or palpitation. PULMONARY: No cough or hemoptysis. GASTROINTESTINAL: Lost his appetite. GENITOURINARY: Does not make urine. MUSCULOSKELETAL: As per the history of present illness. NEUROLOGICAL: Denies weakness or dizziness. HEMATOLOGICAL: No easy bruisability. PHYSICAL EXAMINATION: GENERAL: He is alert, oriented, in no apparent distress. VITAL SIGNS: Blood pressure is marginal at 88/66, temperature is 36.8. HEAD AND NECK: No jugular venous distention, emaciated. CARDIOVASCULAR: Regular, with no rub. ABDOMEN: Soft, nontender. CHEST: No crackles. LOWER EXTREMITIES: Dressing applied over both feet area. I did not expose the dressing. LABORATORY VALUES: Reviewed. White blood cell count is 4.8, hemoglobin is 10.7. Chemistry from today revealed a sodium of 137, potassium of 4.2, BUN of 39, creatinine of 8.9. Chest x-ray reviewed. ASSESSMENT, IMPRESSION, PLAN: 1. End-stage renal disease. 2. Peripheral vascular disease with multiple amputations. 3. Hypotension. 4. Diabetes mellitus. 5. We will arrange for the patient to have his usual hemodialysis every Thursday, Thursday and Thursday. 6. Routine wound care. 7. Discontinue Norvasc, given his hypotension. 8. Continue the usual other medication related to his dialysis. ��������������������������������������������� <ELECTRONICALLY SIGNED> ���������������������������������������� By: Juan Jose Mcdonald MD ��������������������������������������������� 05/13/18 0749 6 12 Juan Jose Mcdonald MD /nt
--- NOTE | 2018-05-13 10:16 | HC ---
[facility] [place] [address] CONSULTATION Name: AZALEA LOWERY Room #: 423-1 [facility] Ricarda Hernandez#: [id number] Admission: 05/11/18 ������������������ Attend Phys: Mayito Draper MD Discharge: 05/12/18 ������������������ Date of : 49 Report #: [id number] THIS REPORT FOR: //name// CC: Shahram Draper DATE OF SERVICE: 05/12/2018 CHIEF COMPLAINT: Surgical incision to the right foot. HISTORY OF PRESENT ILLNESS: This is a 73-year-old male patient with whom I am familiar from multiple previous hospitalizations. He has a history of osteomyelitis of the right foot. He has undergone multiple prior surgical interventions. He was found to have a necrotic second toe and has undergone an amputation of the toe and revision of an open wound with now a secondary closure. He is not having any pain today. PAST MEDICAL HISTORY: The patient's past medical history is significant for multiple prior previous toe surgeries, peripheral arterial disease, diabetes mellitus, end-stage renal disease, requiring dialysis. CURRENT MEDICATIONS: Include calcium acetate, ascorbic acid, zinc, doxycycline, oxycodone, pravastatin, carvedilol, pantoprazole, enteric coated aspirin, folic acid, hydrocodone. SOCIAL HISTORY: Negative for alcohol or tobacco use. FAMILY HISTORY: Positive for heart disease and hypertension. ALLERGIES: Include no known drug allergies. REVIEW OF SYSTEMS: CONSTITUTIONAL: The patient denies fever, chills, or weight loss. NEUROLOGICAL: The patient denies focal weakness, numbness or tingling. EYES: The patient denies visual changes, redness or drainage. ENT: The patient denies earache, nasal drainage or sore throat. CARDIOVASCULAR: The patient denies chest pain, palpitations, diaphoresis. PULMONARY: The patient denies cough or shortness of breath. GASTROINTESTINAL: The patient denies nausea, vomiting or abdominal pain. ORTHOPEDIC: The patient does complain of mild pain involving his right foot. Other systems in a 14-point review of systems are negative. PHYSICAL EXAMINATION: VITAL SIGNS: At this time include temperature 36.6, pulse 70, respiratory rate 18, blood pressure 103/44. GENERAL: This is a chronically ill-appearing male patient who appears in [facility] [address] [place] [address] CONSULTATION Name: AZALEA LOWERY Room #: [address] [place] [address].#: [id number] Admission: 05/11/18 ������������������ Attend Phys: Mayito Draper MD Discharge: 05/12/18 ������������������ Date of : 49 Report #: [id number] minimal distress. HEENT: Head normocephalic. Nose and throat are clear. NECK: Supple. HEART: Regular rhythm without murmur. ABDOMEN: Soft. Bowel sounds are present. EXTREMITIES: Examination of the lower extremities demonstrates now surgically absent second, third and fourth toes. There is an incision line with some bleeding but appears to be healthy and intact. NEUROLOGIC: The patient is alert. He is slightly encephalopathic. CLINICAL IMPRESSION: Gangrene, right second toe, now status post amputation with closure of the remaining ulceration of the right foot. RECOMMENDATIONS: At this point in time, we will recommend topical silver alginate and a gauze dressing. We recommend follow up in the wound clinic in the next 7-10 days. I appreciate being asked to see him again in consultation. ��������������������������������������������� <ELECTRONICALLY SIGNED> ���������������������������������������� By: Manolo Thapa MD ��������������������������������������������� 05/13/18 1016 1834 0653 Manolo Thapa MD /nt
== END 2018-05-12 20:30 | disposition home or self-care (01) ==
LOC: TBA 05:32 → 4E 05:32 → OR 05:32 → PRE 05:33 → EDSTATUS 12:51 → OR 12:53 → PRE 14:31 → 4E 16:01 → OR 16:02 → 4E 16:02
PROVIDERS: ADMIT Orthopaedic Surgery Sports Medicine
DX: E11.52 Type 2 diabetes mellitus with diabetic peripheral angiopathy with gangrene (principal); I96 Gangrene, not elsewhere classified; I12.0 Hypertensive chronic kidney disease with stage 5 chronic kidney disease or end stage renal disease; E11.22 Type 2 diabetes mellitus with diabetic chronic kidney disease; N18.6 End stage renal disease; I25.10 Atherosclerotic heart disease of native coronary artery without angina pectoris; I25.5 Ischemic cardiomyopathy; Z99.2 Dependence on renal dialysis; I73.9 Peripheral vascular disease, unspecified; M86.9 Osteomyelitis, unspecified; E44.0 Moderate protein-calorie malnutrition; I95.9 Hypotension, unspecified; Z87.891 Personal history of nicotine dependence; Z86.74 Personal history of sudden cardiac arrest
CPT/HCPCS: 10783; 32100; 50010; 50101; 50386; 56525; 56527; 57091; 57179; 62110; 62900; 70005

== ENCOUNTER 2018-05-18 17:25 | Inpatient (IN) | payer OTHER ==
[~2018-05-18] VITALS: Ht 175.3 cm; Wt 80.3 kg
--- NOTE | ~2018-05-18 | HC ---
[facility] [place] [address] CONSULTATION Name: AZALEA LOWERY Room #: 358-P ADM IN M.R.#: [id number] Admission: 05/18/18 ������������������ Attend Phys: Mack Cartwright MD Discharge: ������������������ Date of : 49 Report #: [id number] THIS REPORT FOR: //name// CC: Mack Hayes DATE OF SERVICE: 05/19/2018 REASON FOR CONSULTATION: End-stage renal disease. REASON FOR PRESENTATION: Concern of wound infection. BRIEF HISTORY OF PRESENT ILLNESS: A 73-year-old with history of end-stage renal disease, maintained on hemodialysis every Thursday, Thursday and Thursday. He suffers from extensive peripheral vascular disease related to his comorbid conditions and had a low BKA. He recently had right foot wound and ended up with multiple amputations of his digits except the right big toe. He was in the wound clinic. Wound physicians was not happy with the way his wound looked and thought that there might be an infection and send the patient to the ER for further evaluation. The patient reported mild fever. No reported nausea or vomiting. No chest pain or shortness of breath. He dialyzes every Thursday, Thursday and Thursday. Consult was placed for me to dialyze the patient accordingly. He utilizes a left AV fistula. He has an extensive past medical history and was in the hospital for an extended period of time after cardiac arrest few months ago. PAST MEDICAL HISTORY: 1. End-stage renal disease, maintained on hemodialysis every Thursday, Thursday and Thursday. 2. Hypertension. 3. Osteomyelitis. 4. Peripheral vascular disease. 5. Cardiomyopathy. 6. Numerous amputations. 7. Numerous angiograms. 8. Numerous nosocomial infections. 9. Hyperlipidemia. 10. Colon cancer, status post resections. MEDICATIONS: 1. Calcium acetate. 2. Doxycycline. 3. Oxycodone. 4. Pravastatin. 5. Carvedilol. [address] [address] CONSULTATION Name: AZALEA LOWERY Room #: 358-P [facility]#: [id number] Admission: 05/18/18 ������������������ Attend Phys: Mack Cartwright MD Discharge: ������������������ Date of : 49 Report #: [id number] 6. Aspirin. 7. Folic acid. ALLERGIES: No known drug allergies. SOCIAL HISTORY: He lives with his daughter. No drug or alcohol abuse. REVIEW OF SYSTEMS: GENERAL: Significant for fever. CARDIOVASCULAR: No chest pain or palpitation. PULMONARY: No cough or hemoptysis. GASTROINTESTINAL: No nausea or vomiting. MUSCULOSKELETAL: As per the history of present illness. PHYSICAL EXAMINATION: GENERAL: He is alert, oriented, in no apparent distress. VITAL SIGNS: Blood pressure is marginal at ____, temperature 36.4, pulse 66. HEAD AND NECK: No jugular venous distention, no bruit, no thyromegaly. CHEST: Clear to auscultation bilaterally. CARDIOVASCULAR: No rub detected. ABDOMEN: Soft, nontender. LOWER EXTREMITIES: Dressing applied over the left below knee amputation stump and the right foot. I did not expose the dressing. LABORATORY DATA: Value is reviewed. White blood cell count 7.6, hemoglobin 10.4. Sodium 136, potassium 3.8, chloride 94, BUN is 32, creatinine 6.8. ASSESSMENT, IMPRESSION AND PLAN: 1. End-stage renal disease. 2. Right foot wound. 3. Peripheral vascular disease. 4. Hypertension. 5. Cardiomyopathy. 6. Coronary artery disease. 7. Peripheral vascular disease. 8. Colon cancer, status post resection. 9. We will arrange for the patient to have his usual hemodialysis every Thursday, Thursday and Thursday. 10. Wound care consultation. 11. Antibiotic. 12. X-ray suggestive of osteomyelitis and this will need to be addressed by the primary team, Infectious Disease and Orthopedic team. ��������������������������������������������� ���������������������������������������� By: ��������������������������������������������� [id number] Juan Jose Mcdonald MD /nt
[2018-05-18 17:26] VITALS: BP 68/35
[2018-05-18 18:15] LABS: ABSOLUTE NEUTROPHILS 5.8 thou/uL (1.4-8.2); BASOPHILS 0.3 % (0.0-2.0); EOSINOPHILS 1.6 % (0.0-3.0); HEMATOCRIT 32.3 % (42.0-52.0); HEMOGLOBIN 10.4 gm/dL (14.0-18.0); LYMPHOCYTES 11.4 % (24.0-44.0); MCH 30.4 pg (26.0-34.0); MCHC 32.3 g/dL (28.0-37.0); MCV 93.9 fL (80.0-100.0); MONOCYTES 10.3 % (1.0-8.0); PLATELET COUNT 177 thou/uL (150-400); POLYS 76.4 % (36.0-66.0); RBC 3.43 mil/uL (4.50-6.00); RDW 15.8 % (10.5-14.5); WBC 7.6 thou/uL (4.0-11.0)
--- NOTE | 2018-05-18 18:15 | NUR ---
HAVE DISCUSSED BP READINGS WITH DENA AND DR PLUNKETT. PT HAS HX OF SOME LOW READINGS, BP HAS BEEN ATTEMPTED ON LEFT FORARM, RIGHT AND LEFT ANKLES WITH SIMILAR READINGS. PT IS SITTING UP IN BED, IS FAIRLY RESTLESS R/T PAIN, CHATS EASILY WITH THIS CHECK AND TRANSFER BEADER AND DAUGHTER ABOUT EATING NACHOS.
[2018-05-18 18:24] LABS: CALCIUM 10.4 mg/dL (8.5-10.1); CREATININE 6.8 mg/dL (0.7-1.3); POTASSIUM 3.8 mmol/L (3.5-5.1)
[2018-05-18 18:29] LABS: ALBUMIN 2.5 g/dL (3.4-5.0); TOTAL BILIRUBIN 1.2 mg/dL (<0.1-1.0); TOTAL PROTEIN 7.9 g/dL (6.4-8.2)
[2018-05-18 19:41] VITALS: BP 115/80
[2018-05-18 20:28] VITALS: BP 96/80
[2018-05-18 21:03] VITALS: BP 71/33
[2018-05-18 23:30] VITALS: BP 95/28
[2018-05-19] VITALS (8 sets, daily range): BP systolic 90–183; BP diastolic 17–81
--- NOTE | 2018-05-19 07:42 | NUR ---
Pt. arrived from ER around 2102 accompanied by daughter. 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 Daughter stated pt. has been cleared and should not be on isolation. Informed her that we have no documentation of him being cleared and per hospital policy he is being put on isolation due to recent positive MRSA ( <1 year ). She signed consent stating she is the DPOA. Also verified home meds with her. She stated that she gives pain med to her dad q4 hrs instead of q6 hrs as ordered because he is the type of person that will not tell you eventhough he is in pain. Explained to her importance of following what the doctor has ordered. Before daughter left , she went ahead and gave the pt. a cup of water after telling her no diet has been ordered yet but it will be taken care of. BP upon arrival on the floor still on the soft side but better this am. CH[employer] MARKETING COORDINATOR notified. Renal consult called to answering service. Wound care consult called by US this am. Tylenol given for right foot pain which he rated as 9/10 with partial relief. He verbalized pain down to 4/10 after tylenol and he slept well and pain is not bad at all. He requested for another pain med this am which he rated as 5/10. Bed alarm on for safety. Pt. lives with daughter and uses walker at home to get around. Dialysis access on left arm , daughter stated clotted off and now using left chest dialysis cath. Right arm with limb alert , has AV graft that's waiting to mature and not in use currently. Daughter and pt. refused to take dressing off the wound to take a picture. Stated it was just done at the wound care center by the doctor and would prefer to do picture and dressing change when doctor do rounds today. Day RN made aware. Will continue to monitor.
--- NOTE | 2018-05-19 12:21 | EKG ---
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1945 Requested By: Linda Fonseca Order Number: [id number] MD: Lang Ma Measurements Intervals [place] Rate: 72 P: 0 OK: 41 QRS: -24 QRSD: 145 T: -45 QT: 487 QTc: 534 Interpretive Statements Atrial fibrillation Left ventricular hypertrophy Inferior infarct, age indeterminate Anterior Q waves, possibly due to LVH Compared to ECG 12/14/2017 10:01:16 Atrial fibrillation now present Myocardial infarct finding now present Q waves now present Electronically Signed On 05-19-2018 12:21:05 POSTDOCTORAL FELLOW by Lang Ma [email or web address] ��������������������������������������������� <ELECTRONICALLY SIGNED> ���������������������������������������� By: Lang Ma MD ��������������������������������������������� 05/19/18 1221 1829 1829 Lang Ma MD /EPI
--- NOTE | 2018-05-19 15:14 | NUR ---
INITIAL ASSESSMENT: Received consult for discharge planning. CHUCHO reviewed chart and spoke with nursing and attending physician. Pt was a direct admission for [facility] due to right foot wound. Possible osteomyelits. Wound care/ID/Surgery consulted. CHUCHO met with pt and his sister at bedside. Introduced role of SW. Pt is alert/orientated x 4. Pt reports he lives at home with his dtr and family. Prior to admission, pt was using a walker to assist with ambulation. Pt goes to outpatient dialysis at [facility] at 1600. Pt's dtr provides transportation to/from dialysis. Pt has been to [place] and [facility] SNFs in the past. Pt has used HH services in the past, but unable to recall name of HH provider. Pt is hoping to be able to return home when medically stable. SW is following to assist as needed with discharge planning.
--- NOTE | 2018-05-19 16:10 | NUR ---
WOUND CONSULT: PT. WAS SEEN TODAY BY DR. HAYNES AND MYSELF. PT. IS WELL KNOWN TO THE WOUND CARE TEAM. PT. WAS ADMITTED YESTERDAY FROM DR. [facility]AYNES [facility] FOR FURTHER EVALUATION AND WOUND TREATEMTENT. PT. WAS HERE IN THE HOSPITAL LAST WEEK AND UNDERWENT AMPUTATION OF HIS RIGHT TOES 2ND THRU 4TH DIGITS. THIS INCISION HAS DEHICESED DUE TO A FALL. RECOMMENDATIONS: WOUND CARE TO RIGHT TOES: GENTLY CLEANSE AREA WITH WOUND CLEANSER OR NORMAL SALINE, PACK WITH DAKIN MOIST KERLIX, COVER WITH ABD, SECURE WITH TAPE, COMPLETE CARES DAILY. PT. AND STAFF NURSE WERE INSTRUCTED ON PLAN OF CARE.
--- NOTE | 2018-05-19 19:35 | NUR ---
ASSUMED PATIENT CARE AT 0700. A/0 X4. 500ML NS BOLUS GIVEN DUE TO BP LOW. PATIENT HAD HD TODAY 1L FIUID MOVED. RIGHT FOOT DRESSING CHANGED PER ORDER. ON BED REST. SLOWLY TOWARDS POC GOALS.
--- NOTE | 2018-05-20 03:56 | NUR ---
ASSUMED PT CARE AROUND 1900. A&OX4, FORGETFUL AT TIMES. PT WAS IMPULSIVE A COUPLE TIME DURING THE NIGHT. C/O RT FOOT PAIN. TYLENOL GIVEN. BP LOW EARLIER IN THE SHIFT, AFTER DIALYSIS. NOTIFIED DR TAMEZ. NO NEW ORDERS RECEIVED. PT WAS AWAKE MOST OF THE NIGHT. AFEBRILE. FALL PRECAUTIONS IN PLACE. PROGRESSING SLOWLY TOWARD POC GOALS. WILL CONTINUE TO MONITOR FURTHER.
[2018-05-20 04:06] VITALS: BP 128/34
--- NOTE | 2018-05-20 05:46 | NUR ---
AROUND 0500, PT NOTED TO BE SITTING UP IN BED, MOANING AND ROCKING BACK AND FORTH. APPEARED TO BE IN PAIN. WHEN RN ASKED PT WHAT WAS WRONG, HE WAS IRRITABLE AND STATED HE WANTED TO BE LEFT ALONE. RN OFFERED PT PAIN MEDICATION FOR PAIN BUT PT REFUSED. PT THEN TOOK OFF HIS GOWN AND HIS TELE MONITOR. ANOTHER RN WAS ABLE TO PUT TELE MONITOR BACK ON PT. PT STILL IRRITABLE, WANTING TO BE LEFT ALONE. WILL CONTINUE TO MONITOR FURTHER. FALL PRECAUTIONS IN PLACE.
[2018-05-20 07:54] VITALS: BP 110/24
--- NOTE | 2018-05-20 10:32 | NUR ---
WOUND FOLLOW UP: PT. WAS SEEN TODAY BY DR. HAYNES AND MYSELF. PT. IS IN GOOD SPIRITS TODAY AND HAS NO COMPLAINTS. DRESSING ARE C/D/I AT THIS TIME. RECOMMENDATIONS: CONTINUE WITH CURRENT PLAN OF CARE. PT. AND STAFF NURSE WERE INSTRUCTED ON PLAN OF CARE.
--- NOTE | 2018-05-20 12:23 | HC ---
[facility] [place] [address] CONSULTATION Name: AZALEA LOWERY Room #: 358-P ADM IN M.R.#: [id number] Admission: 05/18/18 ������������������ Attend Phys: Mack Cartwright MD Discharge: ������������������ Date of : 49 Report #: [id number] THIS REPORT FOR: //name// CC: Mack Hayes DATE OF SERVICE: 05/19/2018 INFECTIOUS DISEASE CONSULTATION REASON FOR CONSULTATION: I was asked to evaluate concerning right foot surgical site infection. HISTORY OF PRESENT ILLNESS: The patient is a 73-year-old brought into the Emergency Room on 05/18/2018 after he had been in a Wound Care Clinic. Last week, he underwent right second toe amputation and debridement of the third and fourth previous toe amputation wound. He had gangrene of his right second toe. He then underwent a primary closure. This was performed on 05/11/2018. There were no intraoperative complications. No recent microbiology reports. The last positive culture I have is from his toe, 07/29/2017, of MRSA and in 06/2017, Acinetobacter. He returns now because of increased drainage and discomfort involving the right foot. He has had low-grade fever up to 100 degrees. No nausea, vomiting or diarrhea. He undergoes dialysis via left upper extremity AV fistula. REVIEW OF SYSTEMS: A 10-point review was negative, other than what is described above. PAST MEDICAL HISTORY: End-stage renal disease, left AV fistula, colon resection, hypertension, left foot transmetatarsal amputation that required revision, peripheral vascular disease, ischemic cardiomyopathy, gastroesophageal reflux and hyperlipidemia. ALLERGIES: None known. MEDICATIONS: As noted on his MAR, which were reviewed. FAMILY HISTORY: Noncontributory. SOCIAL HISTORY: Nonsmoker. No significant alcohol intake. PHYSICAL EXAMINATION: VITAL SIGNS: He is afebrile and hemodynamically stable. GENERAL: He is alert, cooperative and pleasant, sitting up on the side of the bed, in no acute distress. [facility] [address] [place] [address] CONSULTATION Name: AZALEA LOWERY Annemarie Room #: [address] [place] [address] IN .R.#: [id number] Admission: 05/18/18 ������������������ Attend Phys: Mack Cartwright MD Discharge: ������������������ Date of : 49 Report #: [id number] SKIN: Without decubitus or rash, except for what is described in his extremity examination. No palpable lymphadenopathy. HEENT: Eyes nonicteric, with no conjunctivitis. Edentulous. CHEST: Clear. HEART: Regular, without murmur, gallop or rub. ABDOMEN: Soft, nontender. No hepatosplenomegaly or mass. EXTREMITIES: Right lower extremity with dusky and cool foot, mid foot and distal. Previous amputation of toes 2, 3 and 4. Open incisional wound with some seropurulent drainage. He had some skin loss to the dorsum of his foot and pressure wound, lateral distal foot. He had decreased sensation in his toes number 1 and 5. Left transmetatarsal amputation with a small sinus tract to mid portion of the incisional flap. Purulent fluid was able to be expressed. He has no tenderness in this region. NEUROLOGIC: Cranial nerves intact. Mood normal. LABORATORY STUDIES: Hemoglobin 10.4, WBC 7.6 and platelet count 177,000. Bilirubin 1.2, alkaline phosphatase 144 and ALT 18. Creatinine 6.8. Lactate 2. CRP 332. Blood cultures are negative to date. IMPRESSION: 1. A 73-year-old with peripheral vascular disease. I am suspecting distal ischemia to the right foot. He also has a small sinus tract involving the left transmetatarsal amputation incision. 2. End-stage renal disease. 3. Diabetes. 4. Hypertension. RECOMMENDATIONS: We will continue IV antibiotic therapy. Obtain cultures of the wound on the right foot as well as the sinus tract on the left. We would have vascular workup involving the right lower extremity. The patient may require transmetatarsal amputation on this foot as well. ��������������������������������������������� <ELECTRONICALLY SIGNED> ���������������������������������������� By: Jason Carlin MD ��������������������������������������������� 05/20/18 1223 [id number] [id number] Jason Carlin MD /nt
[2018-05-20 13:22] VITALS: BP 101/34
--- NOTE | 2018-05-20 13:50 | NUR ---
CHUCHO reviewed chart and spoke with nursing and attending physician. Recommendation made for pt to go to a SNF for continued medical management. CHUCHO met with pt at bedside to discuss post-acute placement. Pt has been to [facility] in the past and is agreeable with returning. CHUCHO attempted to contact pt's dtr, Tabatha ([phone]). Tabatha's voice mailbox was full. data processing systems project planner to fax [place] [facility] [place]. Will need insurance authorization for admission to SNF. Requested therapy orders from attending physician. CHUCHO is following to assist as needed with discharge planning.
--- NOTE | 2018-05-20 14:09 | NUR ---
DISCHARGE PLANNING. POST ACUTE CARE RECOMMENDED AT DISCHARGE ONCE PATIENT MEDICALLY READY. PER REQUEST REFERRAL FAXED TO [facility]. CALL PLACED TO [facility] ADMISSIONS TO NOTIFY. BIPIN TO REVIEW AND NOTIFY CM. PT AND OT TO SEE PATIENT FOR PLACEMENT PROCESS. ONCE ASSESSEMENTS ARE COMPLETED WILL FORWARD TO BIPIN. UNIT CM/SW AWARE. FOLLOWING TO ASSIST WITH DISCHARGE NEEDS.
[2018-05-20 17:05] VITALS: BP 125/72
--- NOTE | 2018-05-20 18:13 | NUR ---
ASSUMED PATENT CARE AT 0700. A/O X4. IRRTABLE AND NOT COMPLIANT, REFUSED WEAR HEART MONITOR, REFUSED RENAL DIET, PUT IV OUT. WANTS GO HOME. NOT TOWARDS POC GOALS.
[2018-05-20 20:20] VITALS: BP 121/69
[2018-05-21 05:00] VITALS: BP 119/59
--- NOTE | 2018-05-21 07:26 | NUR ---
PATIENT IS PROGRESSING IN HIS CARE PLAN. VITAL SIGNS STABLE WITH PATIENT HAVING NO COMPLAINTS OF PAIN OR NAUSEA THROUGHOUT SHIFT. PATIENT IS LARGELY NON COMPLIANT WITH CARE AND REFUSED 2100 ACCU CHECK. ORIENTED BUT FORGETFUL, PATIENT IS ABLE TO CALL FOR NEEDS WHEN HE IS IN NEED. UP WITH ASSISTANCE WITHOUT INCIDENT. CONTINUE PLAN OF CARE.
[2018-05-21 07:47] VITALS: BP 135/22
--- NOTE | 2018-05-21 13:05 | NUR ---
WOUND FOLLOW UP: PT. WAS SEEN TODAY BY WOUND CARE BACKUP SAWYER JOSELO. PT. WOUNDS ARE STABLE AT THIS TIME. PT. HAS NO COMPLAINTS TODAY. RECOMMENDATIONS: CONTINUE WITH CURRENT PLAN OF CARE. PT. AND STAFF NURSE WERE INSTRUCTED ON PLAN OF CARE.
[2018-05-21 13:40] VITALS: BP 112/28
--- NOTE | 2018-05-21 15:01 | NUR ---
SW reviewed chart and spoke with nursing and attending physician. Awaiting ortho consult at this time. PT/OT evaluations are on hold until after ortho consult has been completed. CHUCHO spoke with pt's dtrTabatha, via phone to discuss discharge plan. Pt's dtr states that [facility] is their preference for a SNF due to location. SW explained process for therapy evals and need for insurance authorization. Pt's dtr verbalized understanding. SW is following to assist as needed with discharge planning.
--- NOTE | 2018-05-21 18:34 | NUR ---
ASSUMED PATIENT CARE AT 0700. A/O X4. PLEASANT TODAY. TOLERATED HD. IR CANCELED ANGIOGRAM FOR TODAY. NO DISTRESS NOTED. SLOWLY TOWARDS POC GOALS.
[2018-05-21 19:30] VITALS: BP 116/70
[2018-05-22 03:50] VITALS: BP 109/68
--- NOTE | 2018-05-22 05:26 | NUR ---
PT MAKING PROGRESS TOWARDS GOAL. HAS DENIED NEED FOR ANY PAIN MEDICATION OVERNIGHT.
[2018-05-22 07:40] VITALS: BP 131/59
--- NOTE | 2018-05-22 12:47 | NUR ---
ASSUMED PATIENT CARE AT 0715. PATIENT DENIED PAIN THAT TIME. MEDICATIONS AND DRESSING CHANGE AT 0900 A.M. PAIN INCREASED AFTER DRESSING CHANGE, ADMINISTERED OXYCODONE 10 MG PRN AFTER DRESSING CHANGE. SEEN BY DR. MELENDREZ, WOUND CARE, AROUND 10:45, WHICH INCREASED PAIN AGAIN. PATIENT REASSESSED AT 12:45 P.M. PAIN RATED AT 7. UP TO BEDSIDE COMMODE WITH STAFF ASSIST TIMES ONE TO DATE THIS SHIFT. EATS PARTIAL MEALS. CONTINUE TO MONITOR.
--- NOTE | 2018-05-22 12:52 | NUR ---
PATIENT'S GOAL IS TO "WORK TOWARDS GOING HOME NEXT THURSDAY." PATIENT ENCOURAGED TO CONTINUE TO STAY POSITIVE.
[2018-05-22 16:11] VITALS: BP 120/43
--- NOTE | 2018-05-22 17:40 | NUR ---
NEW ORDER FOR FENTNYL IV PUSH 50 MCG/1 ML EVERY 3 HOURS, PRN FOR PAIN. DOSE OF 50 MGC ADMINISTERED AT 1730.
--- NOTE | 2018-05-22 17:50 | NUR ---
PATIENT STATES THAT PAIN MEDICATION "HASN'T KICKED IN YET." HOWEVER, HAS HELPED A LITTLE, SINCE HE NOW RATES HIS FROM 8 TO 6. EATING DINNER AT THIS TIME.
[2018-05-22 20:00] VITALS: BP 121/30
--- NOTE | 2018-05-22 23:50 | NUR ---
ASSUMED PT CARE 1900. PT ALERT AND ORIENTED. PT REPORTS MILD PAIN. REASSESSMENT COMPLETE. VSS. IV DRESSING C/D/I, NO SIGNS OF INFILTRATION. PT DENIES N/V. DRESSINGS TO R FOOT C/D/I. PT CALL LIGHT AND PERSONAL BELONINGS WITHIN REACH. WILL CONTINUE POC UNTIL EOS.
[2018-05-23 04:30] VITALS: BP 133/53
[2018-05-23 07:20] VITALS: BP 142/69
--- NOTE | 2018-05-23 09:33 | NUR ---
ASSUMED CARE OF PT AT 0700. ASSESSMENT COMPLETED A&O,X4. DENIES PAIN, NOT REQUESTING ANY PAIN MEDS AT THIS TIME. PT STATES HE WANTS TO TAKE A NAP. CLEAR/DIM LUNG SOUNDS. ROOM AIR. DIALYSIS CATHETER IN PLACE LEFT CHEST. HX AMPUTATIONS. WOUND CARE GIVEN ORDERED. WILL CONTINUE TO MONITOR.
[2018-05-23 17:21] VITALS: BP 120/43
--- NOTE | 2018-05-23 19:24 | NUR ---
PT LOST IV ACCESS. ONE UNSUCCESSFUL ATTEMPT, IV TEAM NOTIFIED. IV TEAM AT BEDSIDE. NEW LEFT WRIST IV ACCESS. IV ABX RESUMED. NO OTHER CHANGE IN STATUS.
[2018-05-23 20:02] VITALS: BP 151/70
[2018-05-24 04:10] VITALS: BP 126/67
[2018-05-24 04:56] LABS: HEMATOCRIT 34.6 % (42.0-52.0); HEMOGLOBIN 11.4 gm/dL (14.0-18.0); MCH 30.7 pg (26.0-34.0); MCHC 32.9 g/dL (28.0-37.0); MCV 93.4 fL (80.0-100.0); RBC 3.71 mil/uL (4.50-6.00); RDW 15.8 % (10.5-14.5); WBC 5.9 thou/uL (4.0-11.0)
[2018-05-24 05:15] LABS: ALBUMIN 2.5 g/dL (3.4-5.0); CREATININE 9.3 mg/dL (0.7-1.3); PHOSPHORUS 3.8 mg/dL (2.5-4.9); POTASSIUM 4.1 mmol/L (3.5-5.1)
--- NOTE | 2018-05-24 06:42 | NUR ---
A/O, denied pain. vss, afebrile. NPO after midnight, tolerated well.Voiced that he understood the procedure on Thursday.
[2018-05-24 07:20] VITALS: BP 150/71
--- NOTE | 2018-05-24 13:54 | NUR ---
FAXED REFERRAL TO [facility] SPOKE WITH BIPIN IN ADM. SHE RECEIVED REFERRAL ALSO NOTED THAT PT. WAS THERE PREVIOUSLY AND THEY WILL HAVE (DON) REVIEW REFERRAL. DCP FAXED MOST RECENT WOUND CARE PROG. NOTES FACILITY REQUESTING MEASUREMENTSS OF WOUND.DCP TO FOLLOW.
[2018-05-24 16:15] VITALS: BP 143/79
[2018-05-24 19:31] VITALS: BP 118/69
[2018-05-25 04:58] VITALS: BP 142/33
--- NOTE | 2018-05-25 05:57 | NUR ---
ASSUMED CARE AT 1900, DURING SHIFT REPORT SPOKE WITH PT'S DAUGHTER AGNES, WHO IS ALSO HIS DPOA. PER HER, SHE WANTS TO BE CALLED REGARDING ANY CARE DECISIONS OR IF HE GOES DOWN FOR ANY TESTS/PROCEDURES, STATES THAT HE GETS EASILY OVERWHELMED AND FRUSTRATED WHEN PHYSICIANS AND NURSES TALK WITH HIM ABOUT POC; SHE ALSO STATED THAT THE DOCTORS AGREED HE DOES NOT NEED TO FOLLOW A RENAL DIET IN THE HOSPITAL SINCE HE DOESN'T FOLLOW ONE AT HOME, AND HE SHOULD BE RECEIVING DOUBLE PROTEIN PORTIONS/SUPPLEMENTS. AGNES ALSO ASKED THAT A MESSAGE BE LEFT FOR CM TO CALL HER IN THE MORNING REGARDING DISCHARGE PLANNING. COMPLETED ASSESSMENT, PT C/O PAIN IN RIGHT FOOT, GIVEN PAIN MEDS TWICE OVERNIGHT WELL ATIVAN TO HELP PT RELAX AND REST. DENIES SOB OR NAUSEA. GIVEN SNACKS OF YOUGURT AND PEANUT BUTTER/DEVI CRACKERS. CHANGED WOUND DRESSING TO RIGHT FOOT WITH A FRESH WET-TO-DRY, ALSO WRAPPED AN ABD/KERLIX AROUND THE LEFT FOOT PER PT REQUEST. LEFT GROIN SITE IS INTACT, NO BLEEDING OR HEMATOMA NOTED. IV ABX GIVEN IN THE HS AFTER DIALYSIS WAS FINISHED. NO OTHER CONCERNS, WILL CONTINUE TO MONITOR.
[2018-05-25 08:00] VITALS: BP 124/59
--- NOTE | 2018-05-25 14:28 | NUR ---
WOUND FOLLOW UP: PT. WAS SEEN TODAY BY DR. LEIVA AND MYSELF. PT. WAS IN A GREAT DEAL OF PAIN THIS VISIT. RECOMMENDATIONS: CONTINUE WITH CURRENT PLAN OF CARE. PT. AND STAFF NURSE WERE INSTRUCTED ON PLAN OF CARE.
--- NOTE | 2018-05-25 16:05 | NUR ---
FAXED PT/OT EVAL TO [facility] SPOKE WITH BIPIN IN ADM. SHE RECEIVED THERAPY NOTES AND WILL SUBMIT FOR AUTH. DCP TO FOLLOW.
[2018-05-25 16:41] VITALS: BP 130/30
--- NOTE | 2018-05-25 17:01 | NUR ---
S/W PT'S DTR AGNES TO ALERT THAT WE ARE IN THE PROCESS OF SEEKING AUTH FROM INS FOR [facility]. ANTICIPATE DC SOON THIS IS OBTAINED. S/W VICKIE AT [facility] TO GIVE UPDATE WELL.
[2018-05-25 19:15] VITALS: BP 129/59
[2018-05-26 03:57] VITALS: BP 141/69
--- NOTE | 2018-05-26 07:41 | NUR ---
ASSUMED CARE AT 1900, ASSESSMENT COMPLETED. PT DROWSY OVERNIGHT, SLEEPING MOST OF SHIFT. REPORTS PAIN IS TOLERABLE AT 4/10, HAS NOT NEEDED PAIN MEDS OVERNIGHT. DENIES NAUSEA OR SOB. DRESSING TO RIGHT FOOT WOUND IS C/D/I. PLAN FOR DIALYSIS THIS AM, LIKELY D/C TO SNF IN THE AFTERNOON. NO OTHER CONCERNS, SHIFT REPORT GIVEN AT 0700.
[2018-05-26 08:57] VITALS: BP 135/75
--- NOTE | 2018-05-26 09:14 | HC ---
[facility] [place] [address] CONSULTATION Name: AZALEA LOWERY Room #: 424-P ADM IN M.R.#: [id number] Admission: 05/18/18 ������������������ Attend Phys: Mack Cartwright MD Discharge: ������������������ Date of : 47 Report #: [id number] THIS REPORT FOR: //name// CC: Mack Curryhens DATE OF SERVICE: 05/19/2018 REQUESTING PHYSICIAN: Dr. Cartwright. CHIEF COMPLAINT: Necrotic right foot wound. HISTORY OF PRESENT ILLNESS: This is a 73-year-old black male who I had seen in clinic yesterday and sent to the hospital for direct admission due to the fact that he has opened up his incision on his most recent amputation sites involving the right second, third and fourth toes. The patient states he has been walking with half shoe and this caused him in the arch of his foot. The patient was also complaining of having low-grade fevers at home with associated chills. The patient denies any pain in his left foot, which he has had a previous transmetatarsal amputation. The patient denies any other associated complaints. PAST MEDICAL AND SURGICAL HISTORY: Significant for end-stage renal disease, on hemodialysis; peripheral arterial disease; hyperlipidemia; previous history of osteomyelitis with transmetatarsal amputation of the left foot and amputations of now the right second, third and fourth toes with history of previous MRSA. The patient also has had colon resection, bilateral lower extremity stenting procedures, right upper arm AV fistula. CURRENT MEDICATIONS: Multiple, I reviewed the patient's medication list. DRUG ALLERGIES: None. SOCIAL HISTORY: The patient has a remote history of smoking, quitting greater than a year ago. Denies alcohol use. FAMILY HISTORY: Not pertinent to current medical conditions. REVIEW OF SYSTEMS: CONSTITUTIONAL: The patient has had low-grade fevers and chills at home over the past several days. NEUROLOGIC: The patient has overall generalized weakness, but no isolated weakness in arms or legs. EYES: No complaints. ENT: No complaints. CARDIAC: The patient denies chest pain, palpitations or peripheral edema. [facility] [address] [place] [address] CONSULTATION Name: AZALEA LOWERY Room #: 424-P [facility] IN [facility]#: [id number] Admission: 05/18/18 ������������������ Attend Phys: Mack Cartwright MD Discharge: ������������������ Date of : 47 Report #: [id number] RESPIRATORY: The patient denies shortness of breath, cough or wheezes. GASTROINTESTINAL: The patient denies nausea, vomiting or abdominal pain. GENITOURINARY: The patient denies urgency or frequency. MUSCULOSKELETAL: No complaints. SKIN: There is a dehiscence surgical wound on the right distal foot from previous toe amputations. PHYSICAL EXAMINATION: VITAL SIGNS: Temperature 36.6, respirations 18, pulse 80, BP 110/24. GENERAL: This is an elderly black male who appears chronically ill. HEENT: Normocephalic, atraumatic. Mucous membranes are dry. Pupils are round. Sclerae white. NECK: Otherwise, supple, nontender. LUNGS: Clear. HEART: Regular. ABDOMEN: Soft, nontender. EXTREMITIES: The patient has distal pulses that are faint in both dorsalis pedis. The left transmetatarsal amputation appears to be fairly essentially healed. There are no signs of any active draining. On the right foot, the incisional site of toes 2, 3 and 4 is necrotic and loosely approximated with nylon sutures, there is exposed bone. Toes 1 and 5 also appear to be slightly ischemic and dusky in appearance. Bilateral heels are intact. NEUROLOGIC: Cranial nerves 2-12 grossly intact. Motor and sensory grossly intact. LABORATORY DATA: White count 7.6, hemoglobin 10.4, potassium 6.0, BUN 32, creatinine 6.8, albumin 2.5. Arterial Dopplers of the lower extremities are pending. IMPRESSION: 1. Dehiscent right foot surgical amputation sites of 2, 3 and 4. Her toes 2, 3 and 4 with necrotic tissue consistent with infection and questionable underlying osteomyelitis. 2. History of transmetatarsal amputation on the left foot, essentially healed. 3. End-stage renal disease, on hemodialysis. 4. Diabetes mellitus. 5. Severe protein-calorie malnutrition, albumin of 2.5. 6. Generalized debility. PLAN: At this time, arterial Dopplers are pending. The patient is receiving IV antibiotics under the care of Infectious Disease. The patient is agreeable at this time for a prolonged rehabilitation stay once he is medically cleared to be discharged. We will hold off on any aggressive treatment at this time of the foot and just try local topical wound care with Dakin solution. I have spoken with Dr. Mayito Draper of Orthopedics who did the amputation. He is going to review the patient's MRI, which will be pending and find out if he feels that [address] [address] CONSULTATION Name: AZALEA LOWERY Room #: 424-P ADM IN M.R.#: [id number] Admission: 05/18/18 ������������������ Attend Phys: Mack Cartwright MD Discharge: ������������������ Date of : 49 Report #: [id number] further intervention is necessary from an orthopedic standpoint. I appreciate the ability to consult. We will continue to follow the patient. ��������������������������������������������� <ELECTRONICALLY SIGNED> ���������������������������������������� By: Mihai Hayes MD ��������������������������������������������� 05/26/18 0914 [id number] Mihai Hayes MD /nt
--- NOTE | 2018-05-26 11:20 | NUR ---
ASSUMED CARE OF PT AT 0700. ASSESSMENT COMPLETED. PT IN DIALYSIS AT BEDSIDE. ALL AM PO MEDS HELD DUE TO DIALYSIS. PT IN STABLE CONDITION. WILL CONTINUE TO MONITOR.
--- NOTE | 2018-05-26 15:04 | NUR ---
DCP SPOKE WITH BIPIN AT [facility] THEY HAVE RECEIVED AUTH. PT. TO LIKELY DC TOMORROW 05/27. BIPIN'S CONCERN IS TRANPORTATION FOR [facility], LET HER KNOW FAMILY IS TRYING TO WORK OUT TRANSPORTATON FOR PT. DCP TO FOLLOW.
--- NOTE | 2018-05-26 15:26 | NUR ---
PT IN STABLE CONDITION POST DIALYSIS. DAUGHTER AT BEDSIDE NOW. AM MEDS GIVEN. C/O FOOT PAIN DUE TO MECHANICAL DEBRIDEMENT AT BEDSIDE, PAIN MEDS GIVEN ORDERED.
[2018-05-26 15:46] VITALS: BP 131/55
[2018-05-26 19:32] VITALS: BP 126/61
[2018-05-27 04:29] VITALS: BP 137/83
--- NOTE | 2018-05-27 06:32 | NUR ---
ASSUMED CARE AT 1900, ASSESSMENT COMPLETED. PT FLAT AND APATHETIC, MINIMAL INTERACTION DURING ASSESSMENT, STATED HE JUST WANTED TO BE LEFT ALONE AND BE ABLE TO SLEEP. DENIED HAVING ANY PAIN, REFUSED ANY PAIN MEDS OR ANTIANXIETY MEDS. NO NAUSEA OR SOB. FOOT DRESSING C/D/I. PLAN FOR D/C PENDING INSURANCE AUTHORIZATION, WILL CONTINUE TO MONITOR.
[2018-05-27 08:39] VITALS: BP 110/64
--- NOTE | 2018-05-27 09:41 | NUR ---
ASSESMENT COMPLETED. VSS. A/O/FLAT. DENIES PAIN. NO NOTED SOA. NO NV. DRESSING CDI. POOR APPETITE. PT RESTING IN BED AT THIS TIME. WILL CONT. TO MONITOR.
[2018-05-27] MEDS ORDERED: ALPRAZOLAM 0.0.25 M1 PO (12:51)
[2018-05-27] MEDS ORDERED: OXYCODONE HCL10 MG PO (12:51)
[2018-05-27] MEDS ORDERED: MIRALAX17 GM PO (12:51)
[2018-05-27] MEDS ORDERED: BACTRIM DS TAB1 EACH PO (12:51)
[2018-05-27] MEDS ORDERED: CLOPIDOGREL75 MG PO (12:51)
[2018-05-27] MEDS ORDERED: CEFUROXIME500 MG PO (12:51)
[2018-05-27] MEDS ORDERED: ACETAMINOPHEN325 M1 PO (12:51)
--- NOTE | 2018-05-27 13:50 | NUR ---
PT. DISCHARGING TODAY TO [facility] FAXED DC ORDERS/SUMMARY TO FACILITY AND SPOKE WITH MICHELE IN ADM. SHE RECEIVED DC ORDERS AND SET UP TRANSPORT VIA [facility]AN FOR [phone] TODAY. NOTIFIED DTR (AGNES) OF DISCHARGE AND TIME OF TRANSPORT. UNIT NOTIFIED AND CHART COPY PER US. RN TO CALL REPORT TO [phone] AND ASK FOR WEST UNIT.
--- NOTE | 2018-05-27 14:14 | NUR ---
WOUND FOLLOW UP: PT. WAS SEEN TODAY BY DR. LEIVA AND MYSELF. PT. WOUNDS ARE STILL NON-CHANGING AT THIS TIME. RECOMMENDATIONS: CONTINUE WITH CURRENT PLAN OF CARE. PT. AND STAFF NURSE WERE INSTRUCTED ON PLAN OF CARE.
--- NOTE | 2018-05-27 15:22 | NUR ---
PAGED DR. HUBBARD TO CLARIFY ANTIBIOTIC- WAITING FOR CALL BACK. ATEMPTING TO CALL REPORT TO [facility].
--- NOTE | 2018-05-27 15:30 | NUR ---
ATTEMPTED TO CALL REPORT X2 TO [facility].
== END 2018-05-27 15:16 | DRG 270 ==
LOC: ER 17:25 → EROBS 18:56 → 3W 18:56 → 4E 18:56 → 3W 20:28 → 4E 05-22 05:53
PROVIDERS: Internal Medicine Nephrology; Nurse Practitioner Family; ADMIT Internal Medicine
PROC: 5A1D70Z Performance of Urinary Filtration, Intermittent, Less than 6 Hours Per Day (ICD-10-PCS; principal; 2018-05-19)
PROC: 5A1D70Z Performance of Urinary Filtration, Intermittent, Less than 6 Hours Per Day (ICD-10-PCS; 2018-05-21)
PROC: 047K3Z1 Dilation of Right Femoral Artery using Drug-Coated Balloon, Percutaneous Approach (ICD-10-PCS; 2018-05-24)
PROC: 5A1D70Z Performance of Urinary Filtration, Intermittent, Less than 6 Hours Per Day (ICD-10-PCS; 2018-05-24)
PROC: 04CK3ZZ Extirpation of Matter from Right Femoral Artery, Percutaneous Approach (ICD-10-PCS; 2018-05-24)
PROC: B4181ZZ Fluoroscopy of Bilateral Renal Arteries using Low Osmolar Contrast (ICD-10-PCS; 2018-05-24)
PROC: 04CM3ZZ Extirpation of Matter from Right Popliteal Artery, Percutaneous Approach (ICD-10-PCS; 2018-05-24)
PROC: B41D1ZZ Fluoroscopy of Aorta and Bilateral Lower Extremity Arteries using Low Osmolar Contrast (ICD-10-PCS; 2018-05-24)
PROC: 5A1D70Z Performance of Urinary Filtration, Intermittent, Less than 6 Hours Per Day (ICD-10-PCS; 2018-05-26)
DX: E11.52 Type 2 diabetes mellitus with diabetic peripheral angiopathy with gangrene (principal); N18.6 End stage renal disease; E43 Unspecified severe protein-calorie malnutrition; T81.30XA Disruption of wound, unspecified, initial encounter; M86.8X7 Other osteomyelitis, ankle and foot; I96 Gangrene, not elsewhere classified; I12.0 Hypertensive chronic kidney disease with stage 5 chronic kidney disease or end stage renal disease; I25.5 Ischemic cardiomyopathy; K21.9 Gastro-esophageal reflux disease without esophagitis; I95.9 Hypotension, unspecified; E78.5 Hyperlipidemia, unspecified; I25.10 Atherosclerotic heart disease of native coronary artery without angina pectoris; D63.8 Anemia in other chronic diseases classified elsewhere; E11.22 Type 2 diabetes mellitus with diabetic chronic kidney disease; E11.69 Type 2 diabetes mellitus with other specified complication; F41.1 Generalized anxiety disorder; Z89.422 Acquired absence of other left toe(s); Z85.038 Personal history of other malignant neoplasm of large intestine; Z68.26 Body mass index [BMI] 26.0-26.9, adult; Z82.49 Family history of ischemic heart disease and other diseases of the circulatory system; Z79.82 Long term (current) use of aspirin; Z79.899 Other long term (current) drug therapy; Z87.891 Personal history of nicotine dependence; Z99.2 Dependence on renal dialysis
CPT/HCPCS: 10779; 10783; 10879; 32100

== ENCOUNTER → 2018-05-18 | Outpatient (CLI) | payer OTHER | LOC: HYPER 07:12 | DX: T86.828 Other complications of skin graft (allograft) (autograft) (principal); E11.621 Type 2 diabetes mellitus with foot ulcer; I70.245 Atherosclerosis of native arteries of left leg with ulceration of other part of foot; L97.522 Non-pressure chronic ulcer of other part of left foot with fat layer exposed; L97.512 Non-pressure chronic ulcer of other part of right foot with fat layer exposed; E11.69 Type 2 diabetes mellitus with other specified complication; M86.672 Other chronic osteomyelitis, left ankle and foot; E11.52 Type 2 diabetes mellitus with diabetic peripheral angiopathy with gangrene; I96 Gangrene, not elsewhere classified; E11.42 Type 2 diabetes mellitus with diabetic polyneuropathy; E11.22 Type 2 diabetes mellitus with diabetic chronic kidney disease; I12.0 Hypertensive chronic kidney disease with stage 5 chronic kidney disease or end stage renal disease; N18.6 End stage renal disease; E78.49 Other hyperlipidemia; I48.92 Unspecified atrial flutter; I25.10 Atherosclerotic heart disease of native coronary artery without angina pectoris; I25.5 Ischemic cardiomyopathy; I25.2 Old myocardial infarction; K21.9 Gastro-esophageal reflux disease without esophagitis; F17.210 Nicotine dependence, cigarettes, uncomplicated; F32.9 Major depressive disorder, single episode, unspecified; F41.9 Anxiety disorder, unspecified; Z95.820 Peripheral vascular angioplasty status with implants and grafts; Z89.432 Acquired absence of left foot; Z99.2 Dependence on renal dialysis; Y83.2 Surgical operation with anastomosis, bypass or graft as the cause of abnormal reaction of the patient, or of later complication, without mention of misadventure at the time of the procedure ==

== ENCOUNTER 2018-06-18 18:16 | Inpatient (IN) | payer OTHER ==
[~2018-06-18] VITALS: Ht 175.3 cm; Wt 78.9 kg
[~2018-06-18 18:16] MED LIST changes: +ACETAMINOPHEN325 M1 PO; +ALPRAZOLAM 0.0.25 M1 PO; +BACTRIM DS TAB1 EACH PO; +CEFUROXIME500 MG PO; +CLOPIDOGREL75 MG PO
[2018-06-18 18:17] VITALS: BP 69/46
[2018-06-18 18:58] LABS: HEMATOCRIT 27.4 % (42.0-52.0); HEMOGLOBIN 8.6 gm/dL (14.0-18.0); MCH 31.1 pg (26.0-34.0); MCHC 31.2 g/dL (28.0-37.0); MCV 99.4 fL (80.0-100.0); RBC 2.76 mil/uL (4.50-6.00); RDW 19.7 % (10.5-14.5); WBC 7.2 thou/uL (4.0-11.0)
[2018-06-18 19:02] LABS: CALCIUM 7.2 mg/dL (8.5-10.1); CREATININE 3.9 mg/dL (0.7-1.3); POTASSIUM 3.5 mmol/L (3.5-5.1)
[2018-06-18 19:10] LABS: ALBUMIN 1.7 g/dL (3.4-5.0); TOTAL BILIRUBIN 1.3 mg/dL (<0.1-1.0); TOTAL PROTEIN 5.3 g/dL (6.4-8.2); TROPONIN-I 0.32 ng/mL (<0.06)
[2018-06-18 19:25] LABS: ANISOCYTOSIS 1+; POLYCHROMASIA OCCASIONAL
[2018-06-18 19:26] LABS: PLATELET COUNT 93 thou/uL (150-400)
[2018-06-18 21:34] VITALS: BP 72/42
[2018-06-18 22:13] VITALS: BP 79/48
[2018-06-19 01:21] VITALS: BP 77/44
[2018-06-19 04:00] VITALS: BP 77/49
[2018-06-19 05:26] LABS: HEMATOCRIT 30.1 % (42.0-52.0); HEMOGLOBIN 9.8 gm/dL (14.0-18.0); MCH 30.7 pg (26.0-34.0); MCHC 32.7 g/dL (28.0-37.0); RBC 3.2 mil/uL (4.50-6.00); RDW 19.2 % (10.5-14.5); WBC 8.7 thou/uL (4.0-11.0)
[2018-06-19 05:42] LABS: MCV 93.9 fL (80.0-100.0)
[2018-06-19 05:49] LABS: CALCIUM 9.1 mg/dL (8.5-10.1); POTASSIUM 4.2 mmol/L (3.5-5.1)
[2018-06-19 05:51] LABS: CREATININE 5.2 mg/dL (0.7-1.3)
--- NOTE | 2018-06-19 07:35 | NUR ---
ASSUMED CARE OF PT DURING ADMISSION TO UNIT AROUND 2099 LAST NOC. PT IS A&Ox4, COOPERATIVE. HR 60-70'S, HYPOTENSIVE 77/44. FLUIDS GIVEN ORDERED. CONTACTED PROVIDERS, ORDERS RECEIVED. WAS 94% ON RA. 2L O2 VIA NC PLACED PER DR TAMEZ AND 250 BOLUS OF NS GIVEN. REQUESTED LEG WRAPPED IN [place], PROVIDED. ABLE TO CALL OUT AND REPOSITION SELFS. STATED HE CONTINUES TO FEEL WEAK AND CRUMMY BUT DID ASK WHEN HE COULD GET BREAKFAST. SLOW PROGRESS TOWARDS POC GOALS THIS SHIFT. WILL CONTINUE TO PROVIDE CARE AND MONITOR.
[2018-06-19 07:44] VITALS: BP 85/49
[2018-06-19 11:41] VITALS: BP 87/56; BP 87/86
[2018-06-19 15:47] VITALS: BP 85/51
--- NOTE | 2018-06-19 18:01 | NUR ---
ASSUMED PATIENT CARE AT 0700. A/O X4. GIVEN 1L FLUID ON THIS SHIFT. BP STABLE AT 85/56. PATIENT AND HIS DAUGHTER FEEL NOT STABLE TO DC HOME LIKE STAY ONE MORE NIGHT IN [facility]. UPTATE TO DR BOLES. SLOWLY TOWARDS POC GOALS.
[2018-06-19 19:48] VITALS: BP 96/52
--- NOTE | 2018-06-20 02:35 | NUR ---
REFUSES TO PUT THE DRIER HELPER ON THIS AM. HE HAS BEEN DISCHARGED DURING THE DAY SHIFT OF 06/19/18. HE STATED THAT HE IS GOING TO LEAVE ONCE THE SUN COMES UP. ALERT AND ORIENTED X4. DENIES PAIN. BLOOD PRESSURE HAS IMPROVED THROUGH THE NIGHT. HE STATED THAT HE WILL HAVE HIS SISTER COME PICK HIM UP IN THE MORNING. HE IS AWAKE AND WATCHING TELEVISION THIS MORNING.
[2018-06-20 02:43] VITALS: BP 96/52
[2018-06-20 02:51] VITALS: BP 96/52
--- NOTE | 2018-06-20 02:52 | NUR ---
PATIENT STATED THAT HIS SISTER WILL BE HERE TO PICK HIM UP VERY SOON. HE HAS ALL HIS BELONGINGS AND IS READY TO LEAVE WHEN EVER THE SISTER ARRIVES TO GET HIM. THE DISCHARGE HAS BEEN PLACED IN THE COMPUTER BY THE DOCTOR, THE NURSING DISCHARGE HAS BEEN COMPLETED.
[2018-06-20 05:38] VITALS: BP 96/52
--- NOTE | 2018-06-20 07:42 | NUR ---
patient refused to have heart monitor since last night. refused to have vital checked. wants go home now.
--- NOTE | 2018-06-20 13:26 | EKG ---
[address] [place] [address] ELECTROCARDIOGRAM REPORT Name: AZALEA LOWERY Annemarie Room #: 353-P [facility] IN M.R.#: [id number] ������������������ Admission: 06/18/18 ������������������ Attend Phys: Mack Cartwright MD Discharge: 06/20/18 ������������������ Date of : 49 Report #: [id number] ����������������������������������������������������������������� [id number] THIS REPORT FOR: //name// [facility] ED Test Date: 2018-06-18 Test Time: 18:19:29 Pat Name: AZALEA LOWERY Department: Room: [facility] Gender: M [employer] Safety Engineer: HAYLIE : 1945 Requested By: Marium Niocle Order Number: [id number] MD: Gwyn Xiong Measurements Intervals [place] Rate: 79 P: CA: QRS: 64 QRSD: 133 T: 7 QT: 456 QTc: 523 Interpretive Statements Atrial fibrillation LVH with secondary repolarization abnormality Minimal ST elevation, lateral leads Prolonged QT interval Inferior myocardial infarction, age indeterminate Compared to ECG 05/18/2018 18:29:57 ST (T wave) deviation now present Prolonged QT interval now present Electronically Signed On 06-20-2018 13:26:00 CDT by Gwyn Xiong [email or web address] ��������������������������������������������� <ELECTRONICALLY SIGNED> ���������������������������������������� By: Gwyn Xiong MD, [facility] ��������������������������������������������� 06/20/18 1326 [id number] 1819 Gwyn Xiong MD, FAC /EPI
== END 2018-06-20 09:15 | disposition home or self-care (01) | DRG 314 ==
LOC: ER 18:16 → EROBS 19:58 → 3W 21:28
PROVIDERS: Nurse Practitioner Family; Student in an Organized Health Care Education/Training Program; ADMIT Internal Medicine
DX: I95.9 Hypotension, unspecified (principal); N18.6 End stage renal disease; E43 Unspecified severe protein-calorie malnutrition; M86.8X7 Other osteomyelitis, ankle and foot; I12.0 Hypertensive chronic kidney disease with stage 5 chronic kidney disease or end stage renal disease; E11.22 Type 2 diabetes mellitus with diabetic chronic kidney disease; I25.5 Ischemic cardiomyopathy; E11.69 Type 2 diabetes mellitus with other specified complication; E11.51 Type 2 diabetes mellitus with diabetic peripheral angiopathy without gangrene; E87.8 Other disorders of electrolyte and fluid balance, not elsewhere classified; K21.9 Gastro-esophageal reflux disease without esophagitis; E78.5 Hyperlipidemia, unspecified; Z89.421 Acquired absence of other right toe(s); Z82.49 Family history of ischemic heart disease and other diseases of the circulatory system; Z87.891 Personal history of nicotine dependence; Z79.1 Long term (current) use of non-steroidal anti-inflammatories (NSAID); Z79.899 Other long term (current) drug therapy; Z89.422 Acquired absence of other left toe(s); Z86.14 Personal history of Methicillin resistant Staphylococcus aureus infection; Z68.25 Body mass index [BMI] 25.0-25.9, adult
CPT/HCPCS: 10879

== ENCOUNTER → 2018-07-06 | Outpatient (CLI) | payer OTHER | LOC: HYPER 07:00 | DX: T86.828 Other complications of skin graft (allograft) (autograft) (principal); E11.621 Type 2 diabetes mellitus with foot ulcer; I70.245 Atherosclerosis of native arteries of left leg with ulceration of other part of foot; L97.522 Non-pressure chronic ulcer of other part of left foot with fat layer exposed; I70.235 Atherosclerosis of native arteries of right leg with ulceration of other part of foot; L97.512 Non-pressure chronic ulcer of other part of right foot with fat layer exposed; S90.821A Blister (nonthermal), right foot, initial encounter; E11.69 Type 2 diabetes mellitus with other specified complication; M86.672 Other chronic osteomyelitis, left ankle and foot; E11.52 Type 2 diabetes mellitus with diabetic peripheral angiopathy with gangrene; I96 Gangrene, not elsewhere classified; E11.42 Type 2 diabetes mellitus with diabetic polyneuropathy; E11.22 Type 2 diabetes mellitus with diabetic chronic kidney disease; I12.0 Hypertensive chronic kidney disease with stage 5 chronic kidney disease or end stage renal disease; N18.6 End stage renal disease; I48.92 Unspecified atrial flutter; I25.10 Atherosclerotic heart disease of native coronary artery without angina pectoris; I25.2 Old myocardial infarction; K21.9 Gastro-esophageal reflux disease without esophagitis; F32.9 Major depressive disorder, single episode, unspecified; F17.210 Nicotine dependence, cigarettes, uncomplicated; F41.9 Anxiety disorder, unspecified; Z99.2 Dependence on renal dialysis; Z89.422 Acquired absence of other left toe(s); X58.XXXA Exposure to other specified factors, initial encounter; Y93.89 Activity, other specified; Y92.89 Other specified places as the place of occurrence of the external cause; Y99.9 Unspecified external cause status; Y83.2 Surgical operation with anastomosis, bypass or graft as the cause of abnormal reaction of the patient, or of later complication, without mention of misadventure at the time of the procedure ==

== ENCOUNTER → 2018-07-27 | Outpatient (CLI) | payer OTHER | LOC: HYPER 07-21 06:50 | DX: T81.31XD Disruption of external operation (surgical) wound, not elsewhere classified, subsequent encounter (principal); T86.828 Other complications of skin graft (allograft) (autograft); I70.235 Atherosclerosis of native arteries of right leg with ulceration of other part of foot; L97.512 Non-pressure chronic ulcer of other part of right foot with fat layer exposed; I70.245 Atherosclerosis of native arteries of left leg with ulceration of other part of foot; L97.522 Non-pressure chronic ulcer of other part of left foot with fat layer exposed; E11.621 Type 2 diabetes mellitus with foot ulcer; E11.69 Type 2 diabetes mellitus with other specified complication; M86.672 Other chronic osteomyelitis, left ankle and foot; E11.22 Type 2 diabetes mellitus with diabetic chronic kidney disease; I12.0 Hypertensive chronic kidney disease with stage 5 chronic kidney disease or end stage renal disease; N18.6 End stage renal disease; E11.40 Type 2 diabetes mellitus with diabetic neuropathy, unspecified; E11.52 Type 2 diabetes mellitus with diabetic peripheral angiopathy with gangrene; I96 Gangrene, not elsewhere classified; I48.92 Unspecified atrial flutter; E78.5 Hyperlipidemia, unspecified; I25.10 Atherosclerotic heart disease of native coronary artery without angina pectoris; E11.51 Type 2 diabetes mellitus with diabetic peripheral angiopathy without gangrene; K21.9 Gastro-esophageal reflux disease without esophagitis; I25.2 Old myocardial infarction; R26.81 Unsteadiness on feet; F17.210 Nicotine dependence, cigarettes, uncomplicated; Z99.2 Dependence on renal dialysis; Z89.432 Acquired absence of left foot; Y83.8 Other surgical procedures as the cause of abnormal reaction of the patient, or of later complication, without mention of misadventure at the time of the procedure; Y83.2 Surgical operation with anastomosis, bypass or graft as the cause of abnormal reaction of the patient, or of later complication, without mention of misadventure at the time of the procedure ==